=== PATIENT | female | born 1975 | race Caucasian/White ===

== ENCOUNTER 2020-12-19 13:27 | Emergency (ER) | payer MEDICAID, SELFPAY ==
--- NOTE | ~2020-12-19 | CT_ITS ---
EXAMINATION: CT ABDOMEN AND PELVIS WITH CONTRAST CLINICAL INFORMATION: Endometriosis, status post exploratory laparotomy 12/14. Severe left lower quadrant pain. Age 45. COMPARISON: Pelvic ultrasound 10/24/2019, CT abdomen and pelvis with IV contrast 09/11/2017 TECHNIQUE: Multidetector volumetric images were obtained from the superior aspect of the liver through the pubic symphysis following administration 85 mL of Omnipaque 350 intravenous contrast. Sagittal and coronal reformatted images were obtained on the technologist's workstation. Oral contrast: No This CT examination was performed using dose optimization techniques as appropriate, variously including the following: *Automated exposure control *Adjustment of mA and/or kV according to patient size (this includes techniques or standardized protocols for targeted exams where dose is matched to indication/reason for exam; i.e. extremities or head) *Use of iterative reconstruction technique DLP: 492 mGy-cm FINDINGS: LUNG BASES: Probable minor dependent atelectasis posterior bases. No effusion. LIVER, GALLBLADDER, AND BILIARY TREE: Liver is upper limits of normal size and smooth in contour, similar to prior exam 2018. The parenchyma areas homogeneous. There is no focal parenchymal lesion or intrahepatic ductal dilatation. Again, there is a 1.9 cm gallstone. No gallbladder wall thickening or pericholecystic inflammatory changes. Common duct unremarkable. PANCREAS: Unremarkable. SPLEEN: Unremarkable. ADRENAL GLANDS: Unremarkable. KIDNEYS AND URETERS: The kidneys are normal in size, shape, and attenuation. No hydronephrosis, hydroureter, or calculi seen. No perinephric stranding. BLADDER: Unremarkable. GASTROINTESTINAL TRACT: There is no bowel obstruction or focal inflammatory changes in bowel or mesentery. The appendix is normal. There is moderate stool throughout the colon. There is no definite pneumatosis and no free air. No abdominal ascites or abdominal fluid collection. ABDOMINAL WALL: Borderline fat-containing umbilical hernia under 3 cm. LYMPH NODES: No lymphadenopathy. VASCULAR: Unremarkable. PELVIC VISCERA: Mild to moderate pelvic ascites. Prior hysterectomy. Dominant follicle or postovulatory corpus luteum left adnexa measuring under 2 cm. No extraintestinal gas bubbles. No stranding in the adjacent the pelvic mesentery. OSSEOUS STRUCTURES: No acute bony abnormality. Degenerative disc changes L2-L3 and L3-L4 with disc narrowing and vacuum disc and vertebral spurring. CT/CT abdomen pelvis w con IMPRESSION: 1. No bowel obstruction or focal inflammatory changes in bowel or mesentery. Normal appendix. 2. Small to moderate pelvic ascites. Left adnexal dominant follicle/postovulatory corpus luteum under 2 cm. 3. Chronic gallstone. No gallbladder wall thickening or ductal dilatation.
[2020-12-19 13:31] VITALS: BP 110/69; PULSE 86; RESP 24; TEMP 37; O2SAT 100; BMI 23.3
--- NOTE | 2020-12-19 15:03 | ED.GENADULT ---
HPI - General Adult General Chief complaint: Abdominal Pain Stated complaint: LOWER ABD PAIN HAD SURGERY 12 14 20 Time Seen by Provider: 12/19/20 14:17 Source: patient Mode of arrival: ambulatory Limitations: no limitations History of Present Illness HPI narrative: 45 year old female who presents emergency department for evaluation of left lower quadrant abdominal pain. The patient states she has a history of intermittent left lower quadrant abdominal pain times at least 1 year. She states that over the past 7 to 10 days the pain has been severe. She describes the pain as a constant, stabbing, pulsating, aching, throbbing pain. She states that in the past, the pain was caused by ovarian cyst. The patient was seen at [facility] and had a laparoscopic exploratory surgery on 12/14/2020. She states that they found tissue which turned out to be endometriosis. Patient does have a history of hysterectomy but does have both of her ovaries. She states that initially after the surgery she did feel better however she states that last night the pain came back and was severe, greater than 10/10. The patient had associated chills but no fever. She had associated nausea but no vomiting. She has dysuria but no frequency. She states that she has had normal bowel movements since the surgery and is passing flatus. She does feel bloated since the surgery. Related Data Previous Rx's Medication Instructions Recorded hydromorphone 2 mg tablet 2 mg PO Q4-6H PRN #10 tab 12/19/20 (Dilaudid) Allergies Allergy/AdvReac Type Severity Reaction Status Date / Time Penicillins [PENICILLINS] Allergy Intermediate HIVES/VOMIT Verified 12/19/20 13:30 ING sulfamethoxazole Allergy Intermediate BLISTERS Verified 12/19/20 13:30 [From BACTRIM] trimethoprim [From BACTRIM] Allergy Intermediate BLISTERS Verified 12/19/20 13:30 ciprofloxacin [Cipro] Allergy Unknown Hives Verified 12/19/20 13:30 penicillin V Allergy Unknown Hives Verified 12/19/20 13:30 Sulfa (Sulfonamide Allergy Unknown HIVES Verified 12/19/20 13:30 Antibiotics) [SULFA (SULFONAMIDE ANTIBIOTICS)] From CIPRO Allergy Intermediate HIVES Uncoded 12/19/20 13:30 Review of Systems Review of Systems: Yes all other systems are reviewed and are negative PMFSH Past Medical History PMFSH Narrative: Past medical history: Anxiety, insomnia,Jane Habermann Disease(PLEVA) treated with methotrexate. Past surgical history: Hysterectomy. Exploratory laparoscopic surgery done at [facility] on 12/14/2020-patient found to have endometriosis on biopsy. Social history: The patient smokes 5 cigarettes per day. The patient states she rarely drinks alcohol. She denies drug use. Social History Social History Advance Directives: No Advance Directives Information Provided: Yes Patient : No Physical Exam Vital Signs: Vital Signs: Last Vital Signs Temp 97.9 F 12/19/20 16:23 Pulse 62 12/19/20 16:23 Resp 18 12/19/20 16:23 BP 100/50 L 12/19/20 16:23 Pulse Ox 99 12/19/20 16:23 Body Mass Index 23.3 Const: General: cooperative and no acute distress Orientation/consciousness: oriented to person and oriented to place Limitations: no limitations HENMT: Head: Yes normal to inspection, Yes normocephalic and Yes atraumatic Ears: external ears normal General nose exam: Normal external nose present Face and sinus: Yes normal facial exam Mouth: Normal oral and palatal mucosa present Throat: Yes posterior oropharynx normal Eyes: General: appearance normal, both eyes and all related structures Pupils: Equal, round and reactive pupils present Neck: Neck: Yes normal visual inspection, Yes no lymphadenopathy, Yes trachea midline and Yes supple Chest: Chest palpation & inspection: normal inspection of the chest and normal palpation of entire chest wall Resp: Effort & Inspection: normal respiratory effort and able to speak in complete sentences Auscultation: clear to auscultation bilaterally Cardio: Rate: regular rate Rhythm: regular rhythm Heart sounds: S1 normal heart sound present, S2 normal heart sound present and no murmurs GI: Other: Patient's abdomen did reveal 3 laparoscopic puncture sites (umbilical, left lower, right lower) which are healing well with no evidence of cellulitis. The patient had moderate to severe left lower quadrant tenderness mild suprapubic tenderness, no right lower or upper abdominal tenderness. Patient had normoactive bowel sounds. : General: Yes no CVA tenderness Back/Spine/Pelvis: Back: no CVA tenderness Skin: General skin exam: no rashes or lesions noted Neuro: General: oriented to person and oriented to place Cranial nerves: Yes CN's II-XII intact bilaterally and Yes Equal, round and reactive pupils present Cognition (Neuro): normal cognition Motor exam (neuro): 5/5 motor strength present throughout Extrem: General: Yes normal to inspection Psych: Appearance: grossly normal Speech and movement: Normal speech and movement present Affect: normal affect Attitude: cooperative Thought process: Normal thought process present Thought content: Normal thought content present Course Course Course Narrative: 45-year-old female who has intermittent left lower quadrant pain which has been worse over the past 1-2 weeks. Patient was seen at [facility] and had exploratory laparoscopic surgery on 12/14/2020 and was found to have endometriosis. The patient has had severe left lower quadrant pain since last night. She has had associated chills, and nausea, dysuria. She feels bloated but has been moving her bowels and has been passing flatus. The following was ordered on the patient: CBC, CMP, lactate, lipase, urinalysis. CT scan of the abdomen pelvis with IV contrast was also ordered. Patient's pain was treated with Dilaudid 1 mg IV, nausea was treated with Zofran 4 mg IV. She was also ordered to get normal saline IV x1 L. 1703: The patient's laboratory evaluation was unremarkable. CT scan of the abdomen pelvis did not reveal a clear cause for the patient's left lower quadrant pain. Patient does have bowel left follicular cyst but I do not think this is the cause of her pain. She also has free fluid in the pelvis but this is probably related to her recent laparoscopic surgery. , there was no evidence for bowel obstruction or inflammatory changes in the bowel or mesentery. There is no free air seen. The patient incidentally has gallstones with no cholecystitis. The patient required a 2nd dose of Dilaudid 1 mg IV for pain. I did discuss the negative workup with the patient. This time I do not have a clear etiology for pain. I did review the patient's Mass PAT history. The patient gets Ambien and Soma on a regular basis. She had Dilaudid 12 tabs given on 12/14/2020. She had multiple prescriptions for oxycodone in September of 2020. Given her recent post surgical procedure, I do think it is appropriate to give her another limited prescription for Dilaudid and I did discuss this with the patient. The patient was discharged home with printed and verbal instructions. Medical Decision Making Lab Data Result diagrams: 12/19/20 15:09 12/19/20 15:09 Labs: Lab Results 12/19/20 12/19/20 12/19/20 Range/Units 15:09 15:09 15:09 WBC 11.4 H (4.8-10.8) X10*3/uL RBC 3.58 L (4.20-5.50) X10*6/uL Hgb 12.2 (12.0-16.0) g/dl Hct 36.2 L (37-47) % MCV 101.1 H (80-98) fL MCH 34.1 H (27.0-33.0) pg MCHC 33.7 (31.0-35.0) g/dl RDW 14.0 (11.0-16.0) % Plt Count 194 (160-400) X10*3/uL MPV 9.2 L (9.4-12.3) fL Immature Gran % (Auto) 0.3 (0.0-0.4) % Neut % (Auto) 59.4 (45-73) % Lymph % (Auto) 32.8 (20-40) % [place] % (Auto) 5.4 (2-11) % Eos % (Auto) 1.8 (0-4) % Baso % (Auto) 0.3 (0-2) % Lymph # (Auto) 3.7 (1.2-4.9) X10*3/uL [place] # (Auto) 0.6 (0.1-1.2) X10*3/uL Eos # (Auto) 0.2 (0.0-0.4) X10*3/uL Baso # (Auto) 0.0 (0.0-0.2) X10*3/uL Abs Immat Gran (auto) 0.03 (0.00-0.03) X10*3/uL Absolute Neuts (auto) 6.8 (2.0-8.3) X10*3/uL Absolute Nucleated RBC 0.000 (0.0-0.012) X10*3/uL Nucleated RBC % (auto) 0.0 (0.0-0.2) /100WBC Sodium 139 (135-145) mmol/L Potassium 4.7 (3.3-5.1) mmol/L Chloride 110 H (96-108) mmol/L Carbon Dioxide 21 L (22-29) mmol/L Anion Gap 13 (12-20) BUN 9 (9-16) mg/dL Creatinine 0.69 (0.5-1.4) mg/dL Estim Creat Clear Calc 98.3 Estimated GFR > 60 Random Glucose 89 (60-115) mg/dL Lactic Acid 0.7 (0.5-2.0) mmol/L Calcium 8.0 L (8.4-10.2) mg/dL Total Bilirubin 0.3 (0.0-1.0) mg/dL AST 17 (5-31) U/L ALT 16 (0-31) U/L Alkaline Phosphatase 44 (39-117) U/L Total Protein 6.0 L (6.5-8.0) g/dL Albumin 3.7 (3.5-5.0) g/dL Lipase 9 (8-78) U/L Discharge Plan Discharge Clinical Impression: Abdominal pain Qualifiers: Abdominal location: left lower quadrant Qualified Code(s): R10.32 - Left lower quadrant pain Patient Disposition: Home, Self-Care Instructions: Abdominal Pain (ED) Additional Instructions: Your laboratory evaluation was unremarkable. The CT scan of your abdomen pelvis with IV contrast did not reveal a clear cause for your left lower abdominal pain. You do have a normal appearing cyst on your left ovary. You have some free fluid in your pelvis but this is probably secondary to the recent laparoscopic surgery. There is no evidence for perforation of your intestines or other organs from the surgery. There is no evidence for bowel obstruction or inflammation of your bowel such as diverticulitis that is causing your pain. You do have gallstones but this is not the cause of your pain. Take ibuprofen 200 mg pills, 3 pills every 6 hours as needed for pain. Take Tylenol (acetaminophen) 500 mg pills, 2 pills every 4-6 hours as needed for pain. For pain not relieved by ibuprofen or Tylenol take Dilaudid (hydromorphone) 1 mg pills, 1 pill every 4 to 6 hours as needed for pain. Do not drive or work while taking this medication since they can cause sleepiness. Dilaudid (hydromorphone) is a narcotic medication that can be addicting. If you are concerned about addiction you can ask the pharmacist for less pills or do not get this prescription filled. Follow-up with your doctor in 2 days. Please return to the emergency department if your symptoms get worse or if you develop any symptoms that are concerning to you. Prescriptions: New hydromorphone [Dilaudid] 2 mg tablet 2 mg PO Q4-6H PRN (Reason: pain) Qty: 10 RF: 0
[2020-12-19] MEDS: HYDROmorphone HCl 1 MG/ML SYRINGE IVPUSH ×2 (15:14→16:33)
[2020-12-19] MEDS: ondansetron HCL 4 MG/2 ML VIAL IVPUSH (15:14)
[2020-12-19 15:15] LABS: Basophils Percent Auto 0.3 % (0-2); Eosinophils Absolute Auto 0.2 X10*3/uL (0.0-0.4); Eosinophils Percent Auto 1.8 % (0-4); Hematocrit 36.2 % (37-47); Hemoglobin 12.2 g/dl (12.0-16.0); Imm Gran Abs Auto 0.03 X10*3/uL (0.00-0.03); Imm Gran Pct Auto 0.3 % (0.0-0.4); Lymphocytes Absolute Auto 3.7 X10*3/uL (1.2-4.9); Lymphocytes Percent Auto 32.8 % (20-40); MANUAL DIFF FLAG NO; Mean Corpuscular HGB Conc 33.7 g/dl (31.0-35.0); Mean Corpuscular Hemoglobin 34.1 pg (27.0-33.0); Mean Corpuscular Volume 101.1 fL (80-98); Mean Platelet Volume 9.2 fL (9.4-12.3); Monocytes Absolute Auto 0.6 X10*3/uL (0.1-1.2); Monocytes Percent Auto 5.4 % (2-11); Neutrophils Absolute Auto 6.8 X10*3/uL (2.0-8.3); Neutrophils Percent Auto 59.4 % (45-73); Platelet Count 194 X10*3/uL (160-400); Red Blood Count 3.58 X10*6/uL (4.20-5.50); White Blood Count 11.4 X10*3/uL (4.8-10.8)
[2020-12-19] MEDS: 0.9 % Sodium Chloride 1,000 ML 999 ML IV (15:18)
[2020-12-19 15:28] LABS: Lactic Acid 0.7 mmol/L (0.5-2.0)
[2020-12-19 15:37] LABS: Alanine Aminotransferase 16 U/L (0-31); Albumin Level 3.7 g/dL (3.5-5.0); Alkaline Phosphatase 44 U/L (39-117); Anion Gap 13 (12-20); Aspartate Amino Transferase 17 U/L (5-31); Bilirubin Total 0.3 mg/dL (0.0-1.0); Blood Urea Nitrogen 9 mg/dL (9-16); Carbon Dioxide 21 mmol/L (22-29); Chloride 110 mmol/L (96-108); Creatinine Clr Calc Pharmacy 98.3; Estimated Glomerular Filt Rate > 60; Glucose Random 89 mg/dL (60-115); Lipase 9 U/L (8-78); Potassium 4.7 mmol/L (3.3-5.1); Sodium 139 mmol/L (135-145)
[2020-12-19] MEDS: iohexoL 350 MG/ML 100 ML INFUS..BTL IV (16:02)
[2020-12-19 16:23] VITALS: BP 100/50; PULSE 62; RESP 18; TEMP 36.6; O2SAT 99
== END 2020-12-19 17:38 | disposition home or self-care (01) ==
PROVIDERS: Emergency Provider Emergency Medicine Emergency Medical Services; PCP Hospitalist
DX: R10.32 Left lower quadrant pain (principal)
CPT/HCPCS: 36415; 74177; 80053; 83605; 83690; 85025; 96361; 96374; 96375; 96376; 99283; 99284; J1170; J2405; Q9967

== ENCOUNTER 2021-04-24 11:11 | Emergency (ER) | payer MEDICAID, SELFPAY ==
--- NOTE | ~2021-04-24 | US_ITS ---
EXAMINATION: US ABDOMEN LIMITED CLINICAL INFORMATION: Abdominal pain. COMPARISON: None TECHNIQUE: Real-time imaging of the right upper quadrant abdominal viscera. FINDINGS: PANCREAS: Visualized portions of the pancreas are unremarkable. The pancreatic tail is obscured by bowel gas. LIVER: Normal. The liver is normal in size. The liver contour is normal. Parenchymal echogenicity is normal. No focal hepatic lesion. There is no intrahepatic biliary duct dilatation seen. GALLBLADDER: Cholelithiasis without findings to suggest acute cholecystitis. COMMON BILE DUCT: Normal in caliber measuring 0.5 cm in diameter. RIGHT KIDNEY: Normal. No hydronephrosis. No renal calculi or focal parenchymal lesions. The kidney measures 10.1 cm in maximum dimension. FREE FLUID: None. US/US abdomen limited IMPRESSION: Cholelithiasis without findings to suggest acute cholecystitis.
--- NOTE | ~2021-04-24 | CT_ITS ---
EXAMINATION: CT HEAD WITHOUT CONTRAST CLINICAL INFORMATION: Dizziness. Loss of consciousness. COMPARISON: None. TECHNIQUE: Contiguous axial imaging was performed from the skull base to vertex without intravenous administration of contrast. Coronal and sagittal reformatted images are performed at the CT scanner. [This CT examination was performed using dose optimization techniques as appropriate, variously including the following: *Automated exposure control *Adjustment of mA and/or kV according to patient size (this includes techniques or standardized protocols for targeted exams where dose is matched to indication/reason for exam; i.e. extremities or head) *Use of iterative reconstruction technique] DLP: 535 mGy-cm. FINDINGS: There is no evidence of acute intracranial hemorrhage or territorial infarction. No abnormal mass-effect or midline shift is seen. [place] to white matter differentiation is well preserved. No extra-axial fluid collections are identified. The ventricles are normal in size. There is no abnormal attenuation within the brain parenchyma. There is no osseous abnormality. The mastoid air cells and visualized portions of the paranasal sinuses are well-aerated. CT/CT head/brain wo con IMPRESSION: No acute intracranial pathology.
[2021-04-24 11:36] VITALS: BP 112/91; PULSE 81; RESP 18; TEMP 36.8; O2SAT 99; BMI 22.8
[2021-04-24 12:31] LABS: MANUAL DIFF FLAG NO
[2021-04-24 12:32] LABS: Appearance Urine CLEAR; Color Urine STRAW; Glucose Urine UA NEG (NEG); Leukocyte Esterase Urine NEG (NEG); Nitrite Urine NEG (NEG); PH 5.5 (5.0-8.0); Specific Gravity - Urine <= 1.005 (1.005-1.025); Urine Blood NEG (NEG); Urine Ketones NEG (NEG); Urine Protein NEG (NEG-TRACE)
[2021-04-24 12:32] LABS: Basophils Percent Auto 0.5 % (0-2); Eosinophils Absolute Auto 0.2 X10*3/uL (0.0-0.4); Eosinophils Percent Auto 3.2 % (0-4); Hematocrit 41.9 % (37.0-47.0); Hemoglobin 13.8 g/dl (12.0-16.0); Imm Gran Abs Auto 0.03 X10*3/uL (0.00-0.03); Imm Gran Pct Auto 0.4 % (0.0-0.4); Lymphocytes Absolute Auto 2.6 X10*3/uL (1.2-4.9); Lymphocytes Percent Auto 33.9 % (20-40); Mean Corpuscular HGB Conc 32.9 g/dl (31.0-35.0); Mean Corpuscular Hemoglobin 33.7 pg (27.0-33.0); Mean Corpuscular Volume 102.2 fL (80.0-98.0); Mean Platelet Volume 8.9 fL (9.4-12.3); Monocytes Absolute Auto 0.4 X10*3/uL (0.1-1.2); Monocytes Percent Auto 5.1 % (2-11); Neutrophils Absolute Auto 4.3 x10*3/uL (2.0-8.3); Neutrophils Percent Auto 56.9 % (45-73); Platelet Count 220 X10*3/uL (160-400); Red Cell Distribution Width 13.5 % (11.0-16.0); White Blood Count 7.6 X10*3/uL (4.8-10.8)
[2021-04-24 12:56] LABS: Alanine Aminotransferase 15 U/L (0-31); Albumin Level 4.1 g/dL (3.5-5.0); Alkaline Phosphatase 51 U/L (39-117); Anion Gap 11 (12-20); Aspartate Amino Transferase 13 U/L (5-31); Bilirubin Total 0.2 mg/dL (0.0-1.0); Blood Urea Nitrogen 7 mg/dL (9-16); Calcium 9.1 mg/dL (8.4-10.2); Carbon Dioxide 26 mmol/L (22-29); Chloride 106 mmol/L (96-108); Creatinine Clr Calc Pharmacy 93.2; Estimated Glomerular Filt Rate > 60; Glucose Random 89 mg/dL (60-115); Lipase 11 U/L (8-78); Potassium 4.4 mmol/L (3.3-5.1); Sodium 139 mmol/L (135-145); Total Protein 6.6 g/dL (6.5-8.0)
--- NOTE | 2021-04-24 16:14 | ED.ABDPAIN ---
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 Patient tells me that the right upper quadrant pain is severe in nature, constant, described as a burning sensation, she tells me it feels like the time she had gallstones. She tells me drinking soda makes it worse. However she cannot pinpoint anything that makes it better. She is also coming in with complaints of intermittent dizziness described as the room spinning that is been going on for about 2 weeks she tells me that from time to time it is so bad that she falls and loses consciousness. Last episode a few days ago and last LOC a week and a half ago. She has not been evaluated for this in the past. She tells me that at times a headache accompanies the dizziness however it is usually just dizziness. She denies any recent head trauma. She denies chest pain, shortness of breath, nausea, vomiting, fevers, chills, flank pain, urinary frequency, urgency, dysuria, constipation, diarrhea. MD elicited complaint: abdominal pain Pertinent past history: none Onset (ago): week(s) (1) Pain Consistency: constant Location: RUQ Severity: severe Quality: burning Radiation: RUQ Migration to: no migration Exacerbating factors: other (soda) Relieving factors: nothing Associated symptoms: other (dizzineess) Related Data Previous Rx's Medication Instructions Recorded hydromorphone 2 mg tablet 2 mg PO Q4-6H PRN #10 tab 12/19/20 (Dilaudid) Allergies Allergy/AdvReac Type Severity Reaction Status Date / Time Penicillins [PENICILLINS] Allergy Intermediate HIVES/VOMIT Verified 04/24/21 11:35 ING sulfamethoxazole Allergy Intermediate BLISTERS Verified 04/24/21 11:35 [From BACTRIM] trimethoprim [From BACTRIM] Allergy Intermediate BLISTERS Verified 04/24/21 11:35 ciprofloxacin [Cipro] Allergy Unknown Hives Verified 04/24/21 11:35 penicillin V Allergy Unknown Hives Verified 04/24/21 11:35 Sulfa (Sulfonamide Allergy Unknown HIVES Verified 04/24/21 11:35 Antibiotics) [SULFA (SULFONAMIDE ANTIBIOTICS)] From [facility] Allergy Intermediate HIVES Uncoded 12/19/20 13:30 Review of Systems Review of Systems Constitutional : No Weight loss, No Fever, No Chills, No Fatigue, No Malaise ENT/Mouth : No sore throat, No Rhinorrhea Eyes: No Eye Pain, No Swelling, No Redness Cardiovascular : No Chest Pain, No SOB, No Dyspnea on Exertion, No Orthopnea, No Edema, No Palpitations Respiratory : No Cough, No Sputum, No Wheezing Gastrointestinal : No Nausea, No Vomiting, No Diarrhea, No Constipation, No abdominal Pain, No Hematochezia, No Melena Genitourinary : No Dysuria, No Urinary Frequency, No Hematuria, Musculoskeletal : No joint pain, No Myalgias, No Joint Swelling Skin : No Skin Lesions, No rash Neuro : No Weakness, No Numbness, No Dizziness, No Headache Psych : No Anxiety/Panic, No Depression All other systems reviewed and are negative Yes all other systems are reviewed and are negative [facility] Past Medical History Attestation statement: The following information was validated with the patient. Source: old records reviewed and nursing notes reviewed Medical History Gallstone PLEVA (pityriasis lichenoides et varioliformis acuta) Social History Social History Advance Directives: No Advance Directives Information Provided: No Physical Exam ED Vital Signs: Vital Signs - 24 hr 04/24/21 11:36 04/24/21 16:19 04/24/21 16:46 Temperature 98.3 F Pulse Rate 81 80 Respiratory Rate 18 18 Blood Pressure 112/91 H 118/70 118/70 Pulse Oximetry 99 100 04/24/21 16:47 Temperature Pulse Rate Respiratory Rate Blood Pressure 105/65 Pulse Oximetry BMI result Body Mass Index 22.8 VSS Appearance: Alert.? Oriented X3.? No acute distress.? Head: Normocephalic, atraumatic, no step-offs or deformities Eyes: Pupils equal, round and reactive to light.?EOMI. No nystagmus. ENT: Pharynx normal.? Neck: Normal inspection.? Neck supple.? CVS: Normal heart rate and rhythm.? Pulses normal.? Respiratory: No respiratory distress.? Breath sounds normal.? Abdomen: Soft and + Tenderness to right upper quadrant, positive Bhat sign. Negative Rovsing, McBurney's point, obturator and psoas..? Skin: Skin warm and dry.? Normal skin color.? Normal skin turgor.? Extremities: No lower extremity edema.? No calf ttp. 5/5 strength to bilateral upper and lower extremities Back: No midline tenderness, no C-spine tenderness, full range of motion, no CVA tenderness bilaterally Neuro: Oriented X 3.? No motor deficit.? No sensory deficit. CN 2-12 intact. Normal [id number], [id number], normal tandem gait. Course Reevaluation(s) Reevaluation #1: Orthostatic vital signs positive. Patient will be hydrated with fluids. CBC appears to be at patient's baseline. No leukocytosis or anemia. Chemistry with no acute electrolyte abnormalities. Total bilirubin, and transaminases within normal limits unlikely that this is choledocholithiasis. Lipase within normal limits. Urine negative. Beta hCG pending. CT of the head pending. Ultrasound of right upper quadrant pending. Time: 16:37 Reevaluation #2: Head CT w/ no acute findings. CT of the abdomen with cholelithiasis without acute cholecystitis. I will have patient follow-up with General surgery outpatient as I can discuss an elective cholecystectomy. Beta hCG negative. Patient does have orthostatic hypotension. Is being hydrated. Orthostatics will be repeated. Time: 17:55 Reevaluation #3: Patient is very upset when I discussed normal findings with her she does not understand how I can discharge her home when she is still having right upper quadrant pain. I offered her a GI cocktail as she is describing mood pain as a burning, ascitic sensation. She also tells me that she has had an endoscopy which shows that she has a lot of acid in her stomach and she suffers from this issue chronically. At this time nurse in that section is very backed up with a critical patient and patient has not received this medication she is very upset and wants to leave. I told patient that I would really like it if she stayed tried a GI cocktail and of this does not work we could try something else. Patient very aggressively tells me she does not want to leave she does not understand why she cannot get her gallbladder issue resolved, I tried to explain to her that is not obstructed, or infected and this does not require emergent surgery. I told her I could for store and offer her neurology follow-up, follow-up with GI, follow-up with general surgery and PCP follow-up. Based off her labs and imaging there is no reason for acute emergent surgical intervention. Patient is experiencing pain it initially improved with Toradol however pain came back. She describes the pain as a burning/ascitic pain therefore I offered her a GI cocktail. Because I feel as though this is appropriate to rule out gastritis. At this time patient is telling me she wants to leave. I explained to her and that this is not a good idea because we have still not treated her pain to a level that is appropriate. She tells me she does not care ?you know nothing about my medical history ?.... You guys all have done nothing here ?. She becomes very rude to me and marshall tovar who is at the bedside. Unable to complete 2nd set of orthostatic vital signs as patient is refusing she did receive 1 L of fluids however I am not sure that patient's vital signs have improved. I was going to send patient home on meclizine however she tells me she has an allergy to Benadryl for this reason I will not send her home on meclizine as I am unable to ensure that patient will be safe taking this medication for the 1st time alone. At thyis time she is leaving against medical advice. 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 Upone exam there is tenderness to right upper quadrant, positive Bhat sign. Negative Rovsing, McBurney's point, obturator and psoas..?RRR. Lungs Clear. Neuro nonfocal. Pupils equal round and reactive to light. Extraocular movements intact. No nystagmus. Based off patient history and physical examination unlikely that this is a posterior stroke, likely that this is BPPV, orthostatic hypotension, gallstones. Plan is EKG, cardiac monitoring, basic labs, hCG, ultrasound of right upper quadrant, CT of the head. Medical Records Attestation: I reviewed the patient's medical records. Lab Data Attestation: I reviewed the patient's lab results. Result diagrams: 04/24/21 12:28 04/24/21 12:24 Labs: Lab Results 04/24/21 04/24/21 04/24/21 Range/Units 12:24 12:24 12:28 WBC 7.6 (4.8-10.8) X10*3/uL RBC 4.10 L (4.20-5.50) X10*6/uL Hgb 13.8 (12.0-16.0) g/dl Hct 41.9 (37.0-47.0) % MCV 102.2 H (80.0-98.0) fL MCH 33.7 H (27.0-33.0) pg MCHC 32.9 (31.0-35.0) g/dl RDW 13.5 (11.0-16.0) % Plt Count 220 (160-400) X10*3/uL MPV 8.9 L (9.4-12.3) fL Immature Gran % (Auto) 0.4 (0.0-0.4) % Neut % (Auto) 56.9 (45-73) % Lymph % (Auto) 33.9 (20-40) % [place] % (Auto) 5.1 (2-11) % Eos % (Auto) 3.2 (0-4) % Baso % (Auto) 0.5 (0-2) % Lymph # (Auto) 2.6 (1.2-4.9) X10*3/uL [place] # (Auto) 0.4 (0.1-1.2) X10*3/uL Eos # (Auto) 0.2 (0.0-0.4) X10*3/uL Baso # (Auto) 0.0 (0.0-0.2) X10*3/uL Abs Immat Gran (auto) 0.03 (0.00-0.03) X10*3/uL Absolute Neuts (auto) 4.3 (2.0-8.3) x10*3/uL Absolute Nucleated RBC 0.000 (0.0-0.012) X10*3/uL Nucleated RBC % (auto) 0.0 (0.0-0.2) /100WBC Sodium 139 (135-145) mmol/L Potassium 4.4 (3.3-5.1) mmol/L Chloride 106 (96-108) mmol/L Carbon Dioxide 26 (22-29) mmol/L Anion Gap 11 L (12-20) BUN 7 L (9-16) mg/dL Creatinine 0.70 (0.5-1.4) mg/dL Estim Creat Clear Calc 93.2 Estimated GFR > 60 Random Glucose 89 (60-115) mg/dL Calcium 9.1 D (8.4-10.2) mg/dL Total Bilirubin 0.2 (0.0-1.0) mg/dL AST 13 (5-31) U/L ALT 15 (0-31) U/L Alkaline Phosphatase 51 (39-117) U/L Total Protein 6.6 (6.5-8.0) g/dL Albumin 4.1 (3.5-5.0) g/dL Lipase 11 (8-78) U/L Beta HCG, Quant < 2 mIU/mL Urine Color STRAW Urine Appearance CLEAR Urine pH 5.5 (5.0-8.0) Ur Specific [place] <= 1.005 (1.005-1.025) Urine Protein NEG (NEG-TRACE) MG/DL Urine Glucose (UA) NEG (NEG) MG/DL Urine Ketones NEG (NEG) MG/DL Urine Blood NEG (NEG) Urine Nitrite NEG (NEG) Ur Leukocyte Esterase NEG (NEG) ECG Data Attestation: I personally reviewed and interpreted this ECG as follows: ECG interpretation date: 04/24/21 ECG interpretation time: 17:07 Prior ECG tracings: available for review Interpretation: Ventricular rate 69 MI normal QRS normal. QT/QTC normal. No ST elevations or Inversions. No acute ischemia no previous to compare with . Critical Care Time Critical Care Time Critical Care Time: No Discharge Plan Discharge Clinical Impression: Dizziness, Cholelithiasis, Left against medical advice Patient Disposition: Elopement Instructions: Gallstones (ED) Additional Instructions: Take your medications as prescribed. If you were prescribed antibiotics today, it is important that you take your medication to their entirety, do not skip any doses, do not finish them early. Follow-up with your primary care provider this week. Return to the emergency department with new or worsening symptoms. Such as severe chest pain, shortness of breath, nausea, vomiting, abdominal pain, fevers, chills, changes in bowel habits, changes in urination, back pain. In case of emergency call 911 Prescriptions: No Action hydromorphone [Dilaudid] 2 mg tablet 2 mg PO Q4-6H PRN (Reason: pain) Qty: 10 0RF Rx Instructions: Patient may request partial fill Referrals: Physician,Unknown J [Primary Care Provider] - 2 days Stand Alone Forms: Work/School Release, Against Medical Advice
[2021-04-24 16:19] VITALS: BP 118/70; PULSE 80; RESP 18; O2SAT 100
--- NOTE | 2021-04-24 16:30 | ECG_ITS ---
Test Reason : ABDOMINAL PAIN Blood Pressure : / mmHG Vent. Rate : 069 BPM Atrial Rate : 069 BPM P-R Int : 138 ms QRS Dur : 088 ms QT Int : 426 ms P-R-T Axes : 010 025 028 degrees QTc Int : 456 ms Normal sinus rhythm Normal ECG No previous ECGs available Referred By: Luciano Lopez Electronically Signed By:Karan Youngblood
[2021-04-24 16:39] LABS: HCG Quantitative < 2 mIU/mL
[2021-04-24 16:46] VITALS: BP 118/70
[2021-04-24 16:47] VITALS: BP 105/65
[2021-04-24] MEDS: Ketorolac Tromethamine 15 MG/ML VIAL 30 MG IVPUSH (17:27)
[2021-04-24] MEDS: 0.9 % Sodium Chloride 1,000 ML 999 ML IV (17:27)
== END 2021-04-24 18:45 | disposition left against medical advice (07) ==
PROVIDERS: Physician Assistant; Emergency Provider Emergency Medicine Emergency Medical Services
DX: K80.20 Calculus of gallbladder without cholecystitis without obstruction (principal); R10.11 Right upper quadrant pain; R50.9 Fever, unspecified; R42 Dizziness and giddiness; Z79.899 Other long term (current) drug therapy
CPT/HCPCS: 36415; 70450; 76705; 80053; 81003; 83690; 84702; 85025; 93005; 96361; 96374; 99284; J1885

== ENCOUNTER 2021-11-27 16:17 | Emergency (ER) | payer MEDICAID, SELFPAY ==
--- OUTSIDE RECORDS SUMMARY | 2021-11-27 20:18 | XMS_ITS | Continuity of Care Document ---
:1975 Author Organization [facility] Address [address] [place] [address]- Care Team Providers Name Role Phone Mecca LEONARD, Pop Reveles Primary Care Physician Encounter [facility] Date(s): 01/12/21 - 01/19/21 [facility] [address] [place] [address]- Encounter Diagnosis COVID-19 (Discharge Diagnosis) - 01/12/21 Attending Physician: Noé FINANCIAL REPORTING SPECIALIST, Jo Ann Tate Allergies, Adverse Reactions, Alerts Substance Reaction Severity Status morphine nausea Active Coconut burning in throat blisters in mouth Active penicillins hives high fever vomiting Active sulfa drugs hives Active Ciprofloxacin allergy blisters Cipro hives Active Bactrim hives Active Benadryl restless leg syndrone makes me wired Active Duloxetine fatigue, word slurring, confusion Active Immunizations Given and Recorded Vaccine Date Status Refusal Reason pneumococcal 23-valent vaccine1 07/02/17 Given tetanus/diphtheria/pertussis, acel(Tdap)2 07/02/17 Given Not Given Vaccine Date Status Refusal Reason Influenza Virus Vaccine (oldterm) 04/29/19 Not Given Parent Or Guardian Refuses Influenza Virus Vaccine (oldterm) 04/12/19 Not Given Patient Refuses 1Result Comment: [07/02/2017] [id number] Comment: [07/02/2017] [id number] Medications Ambien 10 mg oral tablet 1 tablet = 10 mg, By Mouth, Daily at bedtime, PRN for sleep, # 90 tablet, 0 Refills, Maintenance, 11/23/20 17:09:00 EDT, Tablet, [facility], [place] TO F[place] EARLY PATIENT LOST PREVIOUS SCRIPT, 165,cm, 07/27/21 14:43:00 EDT, Height, 73, kg, ... Start Date: 11/23/20 Status: Orderedescitalopram 20 mg oral tablet 1 tablet = 20 mg, By Mouth, Daily, # 90 tablet, 3 Refills, Maintenance, 09/19/20 15:24:00 EDT, Tablet, [facility], 165, cm, 09/19/20 14:43:00 EDT, Height, 73, kg, 02/08/20 8:38:00 EST, Dry Weight Start Date: 09/19/20 Status: Orderedfolic acid 1 mg oral tablet 1 tablet = 1 mg, By Mouth, Daily, # 30 tablet, 0 Refills, Maintenance, 02/15/14 17:52:02, Tablet Start Date: 02/15/14 Status: Orderedlidocaine 5% topical ointment 1 application, Topically, 3 times a day, # 50 Gm, 1 Refills, Maintenance, 03/10/19 13:16:00 EST, Ointment, [facility], 1 application Topically 3 times a day, 165.1, cm, 03/10/19 12:52:00 EST, Height Start Date: 03/10/19 Status: Orderedmethotrexate 2.5 mg oral tablet 6 tablet = 15 mg, By Mouth, Every week, # 30 tablet, 5 Refills, Maintenance, 08/09/20 15:25:00 EDT, Tablet, [facility] # [facility], 165, cm, 03/27/20 12:01:00 EST, Height, 73, kg, 02/08/20 8:38:00 EST, Dry Weight Start Date: 08/09/20 Status: Orderedomeprazole 40 mg oral enteric coated capsule 1 capsule = 40 mg, By Mouth, 2 times a day, before a meal, # 60 capsule, 1 Refills, Maintenance, 02/01/20 15:13:00 EST, EC Capsule, [facility] # [facility], Partial fill upon patient request if the prescription is for a schedule II opioid drug., 165.1, cm... Start Date: 02/01/20 Status: OrderedSoma 350 mg oral tablet 350 mg, 1, tablet, By Mouth, 3 times a day, PRN, # 270 tablet, Refills 0, Tot. Refills 0, Maintenance, as needed for pain, 11/23/20 17:09:00 EDT, Route to Pharmacy Electronically, [facility], [place] F[place] EARLY PATIENT LOST PREVIOUS SCRIPT, 165... Start Date: 11/23/20 Status: Orderedsucralfate 1 gm oral tablet 1 Gm, 1, tablet, By Mouth, 4 times a day, # 40 tablet, Refills 0, Tot. Refills 0, Maintenance, 02/01/20 15:13:00 EST, Route to Pharmacy Electronically, [facility] # [facility], Partial fill upon patient request if the prescription is for a schedule II opi... Start Date: 02/01/20 Status: Ordered Problem List Condition Effective Dates Status Health Status Informant PLEVA (pityriasis lichenoides et Active varioliformis acuta) - on MTX(Confirmed) Bacterial vaginosis - Active recurrent(Confirmed) Right carotid bruit(Confirmed) Active Chronic abdominal pain(Confirmed) Active Chronic pain syndrome(Confirmed) Active Adenomyosis(Confirmed) Active Fibromyalgia(Confirmed) Active Generalized pain(Confirmed) Active Insomnia(Confirmed) Active 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) Active intermediate designer methotrexate user(Confirmed) 11/24/09 Active Moderate major depression(Confirmed) Active Neuropathic pain(Confirmed) Active Right shoulder pain(Confirmed) Active Diagnosis Diagnosis Type Effective Dates Health Status Clinical Serv ice Informant COVID-19 Discharge 01/12/21 Diagnosis Vital Signs Most recent to oldest [Reference Range]: 1 Height 165 cm (01/12/21 8:46 AM) Social History Social History Type Response Smoking Status Current some day smoker entered on: 07/02/17 Sex Female
--- OUTSIDE RECORDS SUMMARY | 2021-11-27 20:18 | XMS_ITS | Continuity of Care Document ---
:1975 Author Organization [facility] Address [address] [place] [address]- Care Team Providers Name Role Phone Mecca LEONARD, Pop Reveles Primary Care Physician Encounter [facility] Date(s): 01/11/21 - 02/10/21 [facility] [address] [place] [address]- Allergies, Adverse Reactions, Alerts Substance Reaction Severity Status morphine nausea Active penicillins hives high fever vomiting Active sulfa drugs hives Active Ciprofloxacin allergy blisters Cipro hives Active Bactrim hives Active Benadryl restless leg syndrone makes me wired Active Duloxetine fatigue, word slurring, confusion Active Coconut burning in throat blisters in mouth Active Immunizations Given and Recorded Vaccine Date Status Refusal Reason pneumococcal 23-valent vaccine1 07/02/17 Given tetanus/diphtheria/pertussis, acel(Tdap)2 07/02/17 Given Not Given Vaccine Date Status Refusal Reason Influenza Virus Vaccine (oldterm) 04/29/19 Not Given Parent Or Guardian Refuses Influenza Virus Vaccine (oldterm) 04/12/19 Not Given Patient Refuses 1Result Comment: [07/02/2017] [id number] Comment: [07/02/2017] [id number] Medications Ambien 10 mg oral tablet 1 tablet = 10 mg, By Mouth, Daily at bedtime, PRN for sleep, # 90 tablet, 0 Refills, Maintenance, 11/23/20 17:09:00 EDT, Tablet, [facility], [place] TO F[place] EARLY PATIENT LOST PREVIOUS SCRIPT, 165,cm, 09/19/20 14:43:00 EDT, Height, 73, kg, 02/07/... Start Date: 11/23/20 Status: Orderedescitalopram 20 mg oral tablet 1 tablet = 20 mg, By Mouth, Daily, # 90 tablet, 3 Refills, Maintenance, 09/19/20 15:24:00 EDT, Tablet, [facility] # [facility], 165, cm, [...] 1 Refills, Maintenance, 03/10/19 13:16:00 EST, Ointment, [facility] # [facility], 1 application Topically 3 times a day, 165.1, cm, 03/10/19 12:52:00 EST, Height Start Date: 03/10/19 Status: Orderedmethotrexate 2.5 mg oral tablet 6 tablet = 15 mg, By Mouth, Every week, # 30 tablet, 5 Refills, Maintenance, 08/09/20 15:25:00 EDT, Tablet, [facility] # [facility], 165, cm, 03/27/20 12:01:00 EST, Height, 73, kg, 02/08/20 8:38:00 EST, Dry Weight Start Date: 08/09/20 Status: Orderedomeprazole 40 mg oral enteric coated capsule 1 capsule = 40 mg, By Mouth, 2 times a day, before a meal, # 60 capsule, 1 Refills, Maintenance, 02/01/20 15:13:00 EST, EC Capsule, [facility] # [facility], Partial fill upon patient request if the prescription is for a schedule II opioid drug., 165.1, cm... Start Date: 02/01/20 Status: OrderedSoma 350 mg oral tablet 350 mg, 1, tablet, By Mouth, 3 times a day, PRN, # 270 tablet, Refills 0, Tot. Refills 0, Maintenance, as needed for pain, 02/08/21 16:31:00 EST, Route to Pharmacy Electronically, [facility] # [facility], 165, cm, 01/12/21 8:46:00 EST, Height, 73, kg, ... Start Date: 02/08/21 Status: Orderedsucralfate 1 gm oral tablet 1 Gm, 1, tablet, By Mouth, 4 times a day, # 40 tablet, Refills 0, Tot. Refills 0, Maintenance, 02/01/20 15:13:00 EST, Route to Pharmacy Electronically, [facility] # [facility], Partial fill upon patient [...] Active Insomnia(Confirmed) Active 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) Active [facility] methotrexate user(Confirmed) 11/24/09 Active Moderate major depression(Confirmed) Active Neuropathic pain(Confirmed) Active Right shoulder pain(Confirmed) Active Social History Social History Type Response Smoking Status Current some day smoker entered on: 07/02/17 Sex Female
--- OUTSIDE RECORDS SUMMARY | 2021-11-27 20:18 | XMS_ITS | Continuity of Care Document ---
:1975 Author Organization [facility] Address Unavailable , Care Team Providers Name Role Phone Howard GIVENS, Deanne Pandya Primary Care Physician Encounter [facility] [place] Date(s): 07/10/21 - 08/09/21 [facility] Attending Physician: Admtr, Ke Admitting Physician: Admtr, Ar8 Referring Physician: Admtr, Ar8 Allergies, Adverse Reactions, Alerts Substance Reaction Severity Status doxycycline hives flush Active morphine nausea Active penicillins hives high fever vomiting Active sulfa drugs hives Active Ciprofloxacin allergy blisters Cipro hives Active Bactrim hives Active Benadryl restless leg syndrone makes me wired Active Duloxetine fatigue, word slurring, confusion Active Coconut burning in throat blisters in mouth Active Immunizations Given and Recorded Vaccine Date Status Refusal Reason influenza virus vaccine, inactivated 12/14/20 Recorded pneumococcal 23-valent vaccine1 07/02/17 Given tetanus/diphtheria/pertussis, acel(Tdap)2 07/02/17 Given Not Given Vaccine Date Status Refusal Reason Influenza Virus Vaccine (oldterm) 04/29/19 Not Given Parent Or Guardian Refuses Influenza Virus Vaccine (oldterm) 04/12/19 Not Given Patient Refuses 1Result Comment: [07/02/2017] [id number] Comment: [07/02/2017] [id number] Medications acetaminophen 325 mg oral tablet 975 mg, 3, tablet, By Mouth, Every 6 hours, # 60 tablet, Refills 0, Tot. Refills 0, Acute 06/12/22 9:12:00 EDT, 06/11/21 9:11:00 EDT, Route to Pharmacy Electronically, [facility], Partialfill upon patient request if the prescription is... Start Date: 06/11/21 Stop Date: 06/12/22 Status: OrderedAmbien 10 mg oral tablet 1 tablet = 10 mg, By Mouth, Daily at bedtime, PRN for sleep, # 30 tablet, 5 Refills, Maintenance, 05/02/21 12:55:00 EST, Tablet, [facility] # 50, 165, cm, 05/02/21 11:10:00 EST, Height, 73, kg, 02/08/20 8:38:00 EST, Dry Weight Start Date: 05/02/21 Status: Orderedbarium sulfate 2% oral suspension See Instructions, Please dispense 2 (450mL) bottles for total of 900mL, # 2 each, 0 Refills, Maintenance, 07/11/21 13:14:00 EDT, [facility] # 50, Partial fill upon patient request if the prescription is for a schedule II opioid drug., Please dispe... Start Date: 07/11/21 Status: Orderedescitalopram 20 mg oral tablet 1 tablet = 20 mg, By Mouth, Daily, # 90 tablet, 3 Refills, Maintenance, 09/19/20 15:24:00 EDT, Tablet, [facility] # 50, 165, cm, 09/19/20 14:43:00 EDT, Height, 73, kg, 02/08/20 8:38:00 EST, Dry Weight Start Date: 09/19/20 Status: Orderedfolic acid 1 mg oral tablet 1 tablet = 1 mg, By Mouth, Daily at bedtime, # 30 tablet, 0 Refills, Maintenance, 02/15/14 17:52:02 EST, Tablet Start Date: 02/15/14 Status: Orderedibuprofen 600 mg oral tablet 600 mg, 1, tablet, By Mouth, 3 times a day, # 50 tablet, Refills 0, Tot. Refills 0, Acute 06/12/22 9:12:00 EDT, 06/11/21 9:11:00 EDT, Route to Pharmacy Electronically, [facility], Partialfill upon patient request if the prescription is... Start Date: 06/11/21 Stop Date: 06/12/22 Status: Orderedlidocaine 5% topical ointment 1 application, Topically, 3 times a day, # 50 Gm, 1 Refills, Maintenance, 03/10/19 13:16:00 EST, Ointment, [facility] # 50, 1 application Topically 3 times a day, 165.1, cm, 03/10/19 12:52:00 EST, Height Start Date: 03/10/19 Status: Orderedmethotrexate 2.5 mg oral tablet 6 tablet = 15 mg, By Mouth, Every week, # 30 tablet, 5 Refills, Maintenance, 05/04/21 8:40:00 EST, Tablet, [facility] # 50, 165, cm, 05/02/21 11:10:00 EST, Height, 73, kg, 02/08/20 8:38:00 EST, DryWeight Start Date: 05/04/21 Status: OrderedPriLOSEC OTC 20 mg oral delayed release tablet 1 tablet = 20 mg, By Mouth, 2 times a day, # 120 tablet, 0 Refills, Maintenance, 07/10/21 15:10:00 EDT, EC Tablet, [facility] # 50, Partial fill upon patient request if the prescription is for a schedule II opioid drug., 168, cm, 07/10/21 14:45:00... Start Date: 07/10/21 Status: OrderedSoma 350 mg oral tablet 350 mg, 1, tablet, By Mouth, 3 times a day, PRN, # 270 tablet, Refills 1, Tot. Refills 1, Maintenance, as needed for pain, 05/02/21 12:55:00 EST, Route to Pharmacy Electronically, [facility] # [facility], 165, cm, 05/02/21 11:10:00 EST, Height, 73, kg, 12... 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
--- OUTSIDE RECORDS SUMMARY | 2021-11-27 20:18 | XMS_ITS | Continuity of Care Document ---
:1975 Author Organization [facility] Address [address] [place] [address]- Care Team Providers Name Role Phone Mecca LEONARD, Pop Reveles Primary Care Physician Encounter [facility] Date(s): 07/11/20 - 08/10/20 [facility] [address] [place] [address]- Allergies, Adverse Reactions, Alerts Substance Reaction Severity [...] Not Given Patient Refuses 1Result Comment: [07/02/2017] [id number] Comment: [07/02/2017] [id number] Medications Ambien 10 mg oral tablet 1 tablet = 10 mg, By Mouth, Daily at bedtime, PRN for sleep, # 30 tablet, 0 Refills, Maintenance, 08/09/20 15:25:00 EDT, Tablet, [facility], 165, cm, 03/27/20 12:01:00 EST, Height, 73, kg, 02/08/20 8:38:00 EST, Dry Weight Start Date: 08/09/20 Status: Orderedescitalopram 20 mg oral tablet 1 tablet = 20 mg, By Mouth, Daily, # 90 tablet, 1 Refills, Maintenance, 06/20/20 16:49:00 EDT, Tablet, [facility] # 50, 165, cm, 03/27/20 12:01:00 EST, Height, 73, kg, 02/08/20 8:38:00 EST, Dry Weight Start Date: 06/20/20 Status: Orderedfolic acid 1 mg oral tablet 1 tablet = 1 mg, By Mouth, Daily, # 30 tablet, 0 Refills, Maintenance, 02/15/14 17:52:02, Tablet Start Date: 02/15/14 Status: Orderedlidocaine 5% topical ointment 1 application, Topically, 3 times a day, # 50 Gm, 1 Refills, Maintenance, 03/10/19 13:16:00 EST, Ointment, [facility] # 50, 1 application Topically 3 times a day, 165.1, cm, 03/10/19 12:52:00 EST, Height Start Date: 03/10/19 Status: Orderedmethotrexate 2.5 mg oral tablet 6 tablet = 15 mg, By Mouth, Every week, # 30 tablet, 5 Refills, Maintenance, 08/09/20 15:25:00 EDT, Tablet, [facility] # 50, 165, cm, 03/27/20 12:01:00 EST, Height, 73, kg, 02/08/20 8:38:00 EST, Dry Weight Start Date: 08/09/20 Status: OrderedMobic 15 mg oral tablet 1 tablet = 15 mg, By Mouth, Daily, # 20 tablet, 0 Refills, Maintenance, 03/27/20 13:06:00 EST, Tablet, [facility] # 50, Partial fill upon patient request if the prescription is for a schedule II opioid drug., 165, cm, 03/27/20 12:01:00 EST, Height... Start Date: 03/27/20 Status: Orderedomeprazole 40 mg oral enteric coated capsule 1 capsule = 40 mg, By Mouth, 2 times a day, before a meal, # 60 capsule, 1 Refills, Maintenance, 02/01/20 15:13:00 EST, EC Capsule, [facility], Partial fill upon patient request if the prescription is for a schedule II opioid drug., 165.1, cm... Start Date: 02/01/20 Status: OrderedSoma 350 mg oral tablet 350 mg, 1, tablet, By Mouth, 3 times a day, PRN, # 90 tablet, Refills 5, Tot. Refills 5, Maintenance, as needed for pain, 03/27/20 16:59:00 EST, Route to Pharmacy Electronically, [facility], 165, cm, 03/27/20 12:01:00 EST, Height, 73, kg, ... Start Date: 03/27/20 Status: Orderedsucralfate 1 gm oral tablet 1 Gm, 1, tablet, By Mouth, 4 times a day, # 40 tablet, Refills 0, Tot. 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
--- OUTSIDE RECORDS SUMMARY | 2021-11-27 20:18 | XMS_ITS | Continuity of Care Document ---
:1975 Author Organization [facility] Address [address] [place] [address]- Care Team Providers Name Role Phone Pop Wing MD Primary Care Physician Encounter [facility] [place] Date(s): 08/24/19 - 09/23/19 [facility] [address] [facility] [place] [address] Attending Physician: Ke Alston Admitting Physician: Admtr, Ke Referring Physician: Admtr, Ar8 Allergies, Adverse Reactions, [...] Not Given Patient Refuses 1Result Comment: [07/02/2017] [id number] Comment: [07/02/2017] [id number] Medications Ambien 10 mg oral tablet 1 tablet = 10 mg, By Mouth, Daily at bedtime, PRN for sleep, # 30 tablet, 5 Refills, Maintenance, 08/04/19 15:12:00 EDT, Tablet, [facility], 165.1, cm, 05/03/19 9:16:00 EDT, Height Start Date: 08/04/19 Status: Orderedescitalopram 20 mg oral tablet 1 tablet = 20 mg, By Mouth, Daily, # 90 tablet, 3 Refills, Maintenance, 06/08/19 9:46:00 EDT, Tablet, [facility] #[id number], 165.1, cm, 05/03/19 9:16:00 EDT, Height Start Date: 06/08/19 Status: Orderedfolic acid 1 mg oral tablet 1 tablet = 1 mg, By Mouth, Daily, # 30 tablet, 0 Refills, Maintenance, 02/15/14 17:52:02, Tablet Start Date: 02/15/14 Status: Orderedlidocaine 5% topical ointment 1 application, Topically, 3 times a day, # 50 Gm, 1 Refills, Maintenance, 03/10/19 13:16:00 EST, Ointment, [facility] # [facility], 1 application Topically 3 times a day, 165.1, cm, 03/10/19 12:52:00 EST, Height Start Date: 03/10/19 Status: Orderedmethotrexate 2.5 mg oral tablet 6 tablet = 15 mg, By Mouth, Every week, # 39 tablet, 5 Refills, Maintenance, 05/17/19 11:13:00 EDT, Tablet, [facility] # [facility], 165.1, cm, 05/03/19 9:16:00 EDT, Height Start Date: 05/17/19 Status: OrderedSoma 350 mg oral tablet 350 mg, 1, tablet, By Mouth, 3 times a day, PRN, # 90 tablet, Refills 2, Tot. 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) Bacterial vaginosis - Active recurrent(Confirmed) Right carotid bruit(Confirmed) Active Chronic abdominal pain(Confirmed) Active Chronic pain syndrome(Confirmed) Active Adenomyosis(Confirmed) Active Fibromyalgia(Confirmed) Active Generalized pain(Confirmed) Active Insomnia(Confirmed) Active 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) Active FPC methotrexate user - 6800 mg 11/24/09 Active cumulative exposure as of 03/10/19(Confirmed) Depression, major(Confirmed) Active Neuropathic pain(Confirmed) Active Social History Social History Type Response Smoking Status Current some day smoker entered on: 07/02/17 Sex
--- OUTSIDE RECORDS SUMMARY | 2021-11-27 20:19 | XMS_ITS | Continuity of Care Document ---
:1975 Author Organization [facility] Address [address] [address]- Care Team Providers Name Role Phone Howard GIVENS, Deanne Pandya Primary Care Physician Encounter [facility] [place] Date(s): 07/02/21 - 07/09/21 [facility] [address] [address]- [place] Encounter Diagnosis Orthostatic hypotension (Discharge Diagnosis) - 07/02/21 Attending Physician: Dusty Baez MD, Graham Glasgow Admitting Physician: Graham Montano Jr, MD Referring Physician: Howard GIVENS, Deanne Pandya Allergies, Adverse Reactions, Alerts Substance Reaction Severity [...] Not Given Patient Refuses 1Result Comment: [07/02/2017] [id number] Comment: [07/02/2017] [id number] Medications acetaminophen 325 mg oral tablet 975 mg, 3, tablet, By Mouth, Every 6 hours, # 60 tablet, Refills 0, Tot. Refills 0, Acute 06/12/22 9:12:00 EDT, 06/11/21 9:11:00 EDT, Route to Pharmacy Electronically, [facility], Partialfill upon patient request if the prescription is... Start Date: 06/11/21 Stop Date: 06/12/22 Status: OrderedAmbien 10 mg oral tablet 1 tablet = 10 mg, By Mouth, Daily at bedtime, PRN for sleep, # 30 tablet, 5 Refills, Maintenance, 05/02/21 12:55:00 EST, Tablet, [facility] # [facility], 165, cm, 05/02/21 11:10:00 EST, Height, 73, kg, 02/08/20 8:38:00 EST, Dry Weight Start Date: 05/02/21 Status: Orderedescitalopram 20 mg oral tablet 1 tablet = 20 mg, By Mouth, Daily, # 90 tablet, 3 Refills, Maintenance, 09/19/20 15:24:00 EDT, Tablet, [facility] # [facility], 165, cm, 09/19/20 [...] 06/11/21 9:11:00 EDT, Route to Pharmacy Electronically, [facility], Partialfill upon patient request if the prescription is... Start Date: 06/11/21 Stop Date: 06/12/22 Status: Orderedlidocaine 5% topical ointment 1 application, Topically, 3 times a day, # 50 Gm, 1 Refills, Maintenance, 03/10/19 13:16:00 EST, Ointment, [facility] # [facility], 1 application Topically 3 times a day, 165.1, cm, 03/10/19 12:52:00 EST, Height Start Date: 03/10/19 Status: Orderedmethotrexate 2.5 mg oral tablet 6 tablet = 15 mg, By Mouth, Every week, # 30 tablet, 5 Refills, Maintenance, 05/04/21 8:40:00 EST, Tablet, [facility], 165, cm, 05/02/21 11:10:00 EST, Height, 73, kg, 02/08/20 8:38:00 EST, DryWeight Start Date: 05/04/21 Status: OrderedoxyCODONE 5 mg oral tablet 5 mg, 1, tablet, By Mouth, Every 6 hours, PRN, # 20 tablet, Refills 0, Tot. Refills 0, Acute 07/18/21 10:59:00 EDT, Pain , Severe, 06/15/21 10:59:00 EDT, Route to Pharmacy Electronically, [facility], Partial fill upon patient request if the p... Start Date: 06/15/21 Stop Date: 07/18/21 Status: OrderedSoma 350 mg oral tablet 350 mg, 1, tablet, By Mouth, 3 times a day, PRN, # 270 tablet, Refills 1, Tot. Refills 1, Maintenance, as needed for pain, 05/02/21 12:55:00 EST, Route to Pharmacy Electronically, [facility], 165, cm, 05/02/21 11:10:00 EST, Height, 73, kg, 12... 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 Active Moderate major depression(Confirmed) Active Neuropathic pain(Confirmed) Active Right shoulder pain(Confirmed) Active Diagnosis Diagnosis Type Effective Dates Health Clinical Infor [facility] Status Service Orthostatic Discharge 07/02/21 hypotension Diagnosis Vital Signs Most recent to oldest [Reference Range]: 1 Height 168 cm (07/02/21 10:40 AM) Weight 65.1 kg (07/02/21 10:40 AM) Oxygen Saturation [94-100 %] 100 % (07/02/21 10:40 AM) Pulse Rate [55-90 bpm] 65 bpm (07/02/21 10:40 AM) Body Mass Index [18.5-24.99] 23.07 (07/02/21 10:40 AM) Blood Pressure [90-138/55-84 mm Hg] 104/53 mm Hg (07/02/21 10:40 AM) Blood pressure sites Arm, right (07/02/21 10:40 AM) Weight Obtained Via Standing scale (07/02/21 10:40 AM) Social History Social History Type Response Smoking Status Current some day smoker entered on: 07/02/17 Sex Female
--- OUTSIDE RECORDS SUMMARY | 2021-11-27 20:19 | XMS_ITS | Continuity of Care Document ---
:1975 Author Organization [facility] Address [address] [place] [address]- Care Team Providers Name Role Phone Pop Wing MD Primary Care Physician Encounter [facility] [place] Date(s): 05/11/19 - 07/01/19 [facility] [address] [place] [address]- [facility] Attending Physician: Milo Pabon MD Admitting Physician: Milo Pabon MD Referring Physician: Pop Wing MD Allergies, Adverse Reactions, Alerts Substance Reaction Severity [...] Not Given Patient Refuses 1Result Comment: [07/02/2017] [id number] Comment: [07/02/2017] [id number] Medications Ambien 10 mg oral tablet 1 tablet = 10 mg, By Mouth, Daily at bedtime, PRN for sleep, # 30 tablet, 5 Refills, Maintenance, 03/04/19 16:50:00 EST, Tablet, [facility], 165.1, cm, 01/13/19 13:24:00 EST, Height Start Date: 03/04/19 Status: Orderedescitalopram 20 mg oral tablet 1 tablet = 20 mg, By Mouth, Daily, # 90 tablet, 3 Refills, Maintenance, 06/08/19 9:46:00 EDT, Tablet, [facility] #[id number], 165.1, cm, 05/03/19 9:16:00 EDT, Height Start Date: 06/08/19 Status: Orderedfolic acid 1 mg oral tablet 1 tablet = 1 mg, By Mouth, Daily, # 30 tablet, 0 Refills, Maintenance, 02/15/14 17:52:02, Tablet Start Date: 02/15/14 Status: Orderedlidocaine 5% topical ointment 1 application, Topically, 3 times a day, # 50 Gm, 1 Refills, Maintenance, 03/10/19 13:16:00 EST, Ointment, [facility] # [facility], 1 application Topically 3 times a day, 165.1, cm, 03/10/19 12:52:00 EST, Height Start Date: 03/10/19 Status: Orderedmethotrexate 2.5 mg oral tablet 6 tablet = 15 mg, By Mouth, Every week, # 39 tablet, 5 Refills, Maintenance, 05/17/19 11:13:00 EDT, Tablet, [facility] # [facility], 165.1, cm, 05/03/19 9:16:00 EDT, Height Start Date: 05/17/19 Status: OrderedSoma 350 mg oral tablet 350 mg, 1, tablet, By Mouth, 3 times a day, PRN, # 90 tablet, Refills 5, Tot. 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) Bacterial vaginosis - Active recurrent(Confirmed) Right carotid bruit(Confirmed) Active Chronic abdominal pain(Confirmed) Active Chronic pain syndrome(Confirmed) Active Adenomyosis(Confirmed) Active Fibromyalgia(Confirmed) Active Generalized pain(Confirmed) Active Insomnia(Confirmed) Active 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) Active detention methotrexate user - 6800 mg 11/24/09 Active cumulative exposure as of 03/10/19(Confirmed) Depression, major(Confirmed) Active Neuropathic pain(Confirmed) Active Social History Social History Type Response Smoking Status Current some day smoker entered on: 07/02/17 Sex
--- OUTSIDE RECORDS SUMMARY | 2021-11-27 20:19 | XMS_ITS | Continuity of Care Document ---
:1975 Author Organization [facility] Address [address] [place] [address]- Care Team Providers Name Role Phone Pop Wing MD Primary Care Physician Encounter [facility] [place] Date(s): 02/01/20 - 02/08/20 [facility] [address] [place] [id number]- Encounter Diagnosis Coffee ground emesis (Discharge Diagnosis) - 02/01/20 Acute gastritis (Discharge Diagnosis) - 02/01/20 Peptic ulcer (Discharge Diagnosis) - 02/01/20 Attending Physician: Pop Wing MD Allergies, Adverse Reactions, [...] Not Given Patient Refuses 1Result Comment: [07/02/2017] [id number] Comment: [07/02/2017] [id number] Medications Ambien 10 mg oral tablet 1 tablet = 10 mg, By Mouth, Daily at bedtime, PRN for sleep, # 30 tablet, 5 Refills, Maintenance, 12/08/19 16:14:00 EDT, Tablet, [facility] # [facility], 165.1, cm, 05/03/19 9:16:00 EDT, Height Start Date: 12/08/19 Status: Orderedescitalopram 20 mg oral tablet 1 tablet = 20 mg, By Mouth, Daily, # 90 tablet, 3 Refills, Maintenance, 06/08/19 9:46:00 EDT, Tablet, [facility] #[id number], 165.1, cm, 05/03/19 9:16:00 EDT, Height Start Date: 06/08/19 Status: Orderedfolic acid 1 mg oral tablet 1 tablet = 1 mg, By Mouth, Daily, # 30 tablet, 0 Refills, Maintenance, 02/15/14 17:52:02, Tablet Start Date: 02/15/14 Status: Orderedlidocaine 5% topical ointment 1 application, Topically, 3 times a day, # 50 Gm, 1 Refills, Maintenance, 03/10/19 13:16:00 EST, Ointment, [facility] # [facility], 1 application Topically 3 times a day, 165.1, cm, 03/10/19 12:52:00 EST, Height Start Date: 03/10/19 Status: Orderedmethotrexate 2.5 mg oral tablet 6 tablet = 15 mg, By Mouth, Every week, # 30 tablet, 5 Refills, Maintenance, 12/08/19 16:14:00 EDT, Tablet, [facility] # [facility], 165.1, cm, 05/03/19 9:16:00 EDT, Height Start Date: 12/08/19 Stop Date: 06/05/20 Status: Orderedomeprazole 40 mg oral enteric coated capsule 1 capsule = 40 mg, By Mouth, 2 times a day, before a meal, # 60 capsule, 1 Refills, Maintenance, 02/01/20 15:13:00 EST, EC Capsule, [facility] # 50, Partial fill upon patient request if the prescription is for a schedule II opioid drug., 165.1, cm... Start Date: 02/01/20 Status: OrderedSoma 350 mg oral tablet 350 mg, 1, tablet, By Mouth, 3 times a day, PRN, # 90 tablet, Refills 5, Tot. Refills 5, Maintenance, as needed for pain, 12/08/19 16:14:00 EDT, Route to Pharmacy Electronically, [facility], 165.1, cm, 05/03/19 9:16:00 EDT, Height Start Date: 12/08/19 Status: Orderedsucralfate 1 gm oral tablet 1 Gm, 1, tablet, By Mouth, 4 times a day, # 40 tablet, Refills 0, Tot. Refills 0, Maintenance, 02/01/20 15:13:00 EST, Route to Pharmacy Electronically, [facility], Partial fill upon [...] Active Insomnia(Confirmed) Active 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) Active long-term methotrexate user(Confirmed) 11/24/09 Active Depression, major(Confirmed) Active Neuropathic pain(Confirmed) Active Diagnosis Diagnosis Type Effective Dates Health Status Clinical In formant Service Coffee ground Discharge 02/01/20 emesis Diagnosis Acute gastritis Discharge 02/01/20 Diagnosis Peptic ulcer Discharge 02/01/20 Diagnosis Vital Signs Most recent to oldest [Reference Range]: 1 Height 165.10 cm (02/01/20 11:43 AM) Weight 72.7 kg (02/01/20 11:43 AM) Body Mass Index [18.5-24.99] 26.67 *H* (02/01/20 11:43 AM) Weight Obtained Via Standing scale (02/01/20 11:43 AM) Social History Social History Type Response Smoking Status Current some day smoker entered on: 07/02/17 Sex Female
--- OUTSIDE RECORDS SUMMARY | 2021-11-27 20:19 | XMS_ITS | Continuity of Care Document ---
:1975 Author Organization [facility] Address [address] [place] [id number]- Care Team Providers Name Role Phone Howard GIVENS, Deanne Pandya Primary Care Physician [facility]counter [facility] Date(s): 06/04/21 - 07/04/21 [facility] [address] [place] [id number] Attending Physician: Ke Alston Admitting Physician: Admtr, ArSloane Referring Physician: Admtr, Ar8 Allergies, Adverse Reactions, [...] Not Given Patient Refuses 1Result Comment: [07/02/2017] [id number] Comment: [07/02/2017] [id number] Medications acetaminophen 325 mg oral tablet 975 mg, 3, tablet, By Mouth, Every 6 hours, # 60 tablet, Refills 0, Tot. Refills 0, Acute 06/12/22 9:12:00 EDT, 06/11/21 9:11:00 EDT, Route to Pharmacy Electronically, [facility], Partialfill upon patient request [...] 3 Refills, Maintenance, 09/19/20 15:24:00 EDT, Tablet, [facility], 165, cm, 09/19/20 14:43:00 [...] 06/11/21 9:11:00 EDT, Route to Pharmacy Electronically, [facility], Partialfill upon patient request [...] 5 Refills, Maintenance, 05/04/21 8:40:00 EST, Tablet, [facility], 165, cm, 05/02/21 11:10:00 EST, Height, 73, kg, 02/08/20 8:38:00 EST, DryWeight Start Date: 05/04/21 Status: OrderedoxyCODONE 5 mg oral tablet 5 mg, 1, tablet, By Mouth, Every 6 hours, PRN, # 20 tablet, Refills 0, Tot. Refills 0, Acute 07/18/21 10:59:00 EDT, Pain , Severe, 06/15/21 10:59:00 EDT, Route to Pharmacy Electronically, [facility], Partial fill upon patient request if the p... Start Date: 06/15/21 Stop Date: 07/18/21 Status: OrderedSoma 350 mg oral tablet 350 mg, 1, tablet, By Mouth, 3 times a day, PRN, # 270 tablet, Refills 1, Tot. Refills 1, Maintenance, as needed for pain, 05/02/21 12:55:00 EST, Route to Pharmacy Electronically, [facility] # [facility], 165, cm, 05/02/21 11:10:00 EST, Height, 73, kg, 12... 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
--- OUTSIDE RECORDS SUMMARY | 2021-11-27 20:19 | XMS_ITS | Continuity of Care Document ---
:1975 Author Organization [facility] Address [address] [place] [address]- Care Team Providers Name Role Phone Mecca LEONARD, Pop Reveles Primary Care Physician Encounter [facility] Date(s): 03/27/20 - 04/26/20 [facility] [address] [place] [address]- Allergies, Adverse Reactions, Alerts Substance Reaction Severity [...] Not Given Patient Refuses 1Result Comment: [07/02/2017] [id number] Comment: [07/02/2017] [id number] Medications Ambien 10 mg oral tablet 1 tablet = 10 mg, By Mouth, Daily at bedtime, PRN for sleep, # 30 tablet, 5 Refills, Maintenance, 12/08/19 16:14:00 EDT, Tablet, [facility], 165.1, cm, 05/03/19 9:16:00 EDT, Height Start Date: 12/08/19 Status: Orderedescitalopram 20 mg oral tablet 1 tablet = 20 mg, By Mouth, Daily, # 90 tablet, 3 Refills, Maintenance, 06/08/19 9:46:00 EDT, Tablet, [facility] #[id number], 165.1, cm, 05/03/19 9:16:00 EDT, Height Start Date: 06/08/19 Status: Orderedfolic acid 1 mg oral tablet 1 tablet = 1 mg, By Mouth, Daily, # 30 tablet, 0 Refills, Maintenance, 02/15/14 17:52:02, Tablet Start Date: 02/15/14 Status: Orderedlidocaine 5% topical ointment 1 application, Topically, 3 times a day, # 50 Gm, 1 Refills, Maintenance, 03/10/19 13:16:00 EST, Ointment, [facility], 1 application Topically 3 times a day, 165.1, cm, 03/10/19 12:52:00 EST, Height Start Date: 03/10/19 Status: Orderedmethotrexate 2.5 mg oral tablet 6 tablet = 15 mg, By Mouth, Every week, # 30 tablet, 5 Refills, Maintenance, 12/08/19 16:14:00 EDT, Tablet, [facility], 165.1, cm, 05/03/19 9:16:00 EDT, Height Start Date: 12/08/19 Stop Date: 06/05/20 Status: OrderedMobic 15 mg oral tablet 1 tablet = 15 mg, By Mouth, Daily, # 20 tablet, 0 Refills, Maintenance, 03/27/20 13:06:00 EST, Tablet, [facility] # [facility], Partial fill upon patient request if the prescription is for a schedule II opioid drug., 165, cm, 03/27/20 12:01:00 EST, Height... Start Date: 03/27/20 Status: Orderedomeprazole 40 mg oral enteric coated capsule 1 capsule = 40 mg, By Mouth, 2 times a day, before a meal, # 60 capsule, 1 Refills, Maintenance, 02/01/20 15:13:00 EST, EC Capsule, [facility] # [facility], Partial fill upon patient request if the prescription is for a schedule II opioid drug., 165.1, cm... Start Date: 02/01/20 Status: OrderedSoma 350 mg oral tablet 350 mg, 1, tablet, By Mouth, 3 times a day, PRN, # 90 tablet, Refills 5, Tot. Refills 5, Maintenance, as needed for pain, 03/27/20 16:59:00 EST, Route to Pharmacy Electronically, [facility], 165, cm, 03/27/20 12:01:00 EST, Height, 73, kg, 12/... Start Date: 03/27/20 Status: Orderedsucralfate 1 gm oral tablet 1 Gm, 1, tablet, By Mouth, 4 times a day, # 40 tablet, Refills 0, Tot. 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
--- OUTSIDE RECORDS SUMMARY | 2021-11-27 20:19 | XMS_ITS | Continuity of Care Document ---
:1975 Author Organization [facility] Address [address] [place] [address]- Care Team Providers Name Role Phone Mecca LEONARD, Pop Reveles Primary Care Physician Encounter [facility] Date(s): 02/19/21 - 03/21/21 [facility] [address] [place] [address]- Allergies, Adverse Reactions, Alerts Substance Reaction Severity [...] Not Given Patient Refuses 1Result Comment: [07/02/2017] [id number] Comment: [07/02/2017] [id number] Medications Ambien 10 mg oral tablet 1 [...] Maintenance, 09/19/20 15:24:00 EDT, Tablet, [facility], 165, cm, 09/19/20 [...] Maintenance, 03/10/19 13:16:00 EST, Ointment, [facility], 1 application Topically 3 times a day, 165.1, cm, 03/10/19 12:52:00 EST, Height Start Date: 03/10/19 Status: Orderedmethotrexate 2.5 mg oral tablet 6 tablet = 15 mg, By Mouth, Every week, # 30 tablet, 5 Refills, Maintenance, 08/09/20 15:25:00 EDT, Tablet, [facility], 165, cm, 03/27/20 12:01:00 EST, Height, 73, kg, 02/08/20 8:38:00 EST, Dry Weight Start Date: 08/09/20 Status: Orderedomeprazole 40 mg oral enteric coated capsule 1 capsule = 40 mg, By Mouth, 2 times a day, before a meal, # 60 capsule, 1 Refills, Maintenance, 02/01/20 15:13:00 EST, EC Capsule, [facility], Partial fill upon patient request if the prescription is for a schedule II opioid drug., 165.1, cm... Start Date: 02/01/20 Status: OrderedSoma 350 mg oral tablet 350 mg, 1, tablet, By Mouth, 3 times a day, PRN, # 270 tablet, Refills 0, Tot. Refills 0, Maintenance, as needed for pain, 02/08/21 16:31:00 EST, Route to Pharmacy Electronically, [facility], 165, cm, 01/12/21 8:46:00 EST, Height, 73, kg, ... Start Date: 02/08/21 Status: Orderedsucralfate 1 gm oral tablet 1 Gm, 1, tablet, By Mouth, 4 times a day, # 40 tablet, Refills 0, Tot. 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
--- OUTSIDE RECORDS SUMMARY | 2021-11-27 20:19 | XMS_ITS | Continuity of Care Document ---
:1975 Author Organization [facility] Address Unavailable , Care Team Providers Name Role Phone Howard GIVENS, Deanne Pandya Primary Care Physician Encounter [facility] Date(s): 07/10/21 - 07/17/21 [facility] Attending Physician: Abad Dupree MD Allergies, Adverse Reactions, Alerts Substance Reaction [...] Not Given Patient Refuses 1Result Comment: [07/02/2017] [id number] Comment: [07/02/2017] [id number] Medications acetaminophen 325 mg oral tablet 975 mg, 3, tablet, By Mouth, Every 6 hours, # 60 tablet, Refills 0, Tot. Refills 0, Acute 06/12/22 9:12:00 EDT, 06/11/21 9:11:00 EDT, Route to Pharmacy Electronically, [facility], Partialfill upon patient request if the prescription is... Start Date: 06/11/21 Stop Date: 06/12/22 Status: OrderedAmbien 10 mg oral tablet 1 tablet = 10 mg, By Mouth, Daily at bedtime, PRN for sleep, # 30 tablet, 5 Refills, Maintenance, 05/02/21 12:55:00 EST, Tablet, [facility], 165, cm, 05/02/21 11:10:00 EST, Height, 73, kg, 02/08/20 8:38:00 EST, Dry Weight Start Date: 05/02/21 Status: Orderedbarium sulfate 2% oral suspension See Instructions, Please dispense 2 (450mL) bottles for total of 900mL, # 2 each, 0 Refills, Maintenance, 07/11/21 13:14:00 EDT, [facility], Partial fill upon patient request if the prescription is for a schedule II opioid drug., Please dispe... Start Date: 07/11/21 Status: Orderedescitalopram 20 mg oral tablet 1 tablet = 20 mg, By Mouth, Daily, # 90 tablet, 3 Refills, Maintenance, 09/19/20 15:24:00 EDT, Tablet, [facility], 165, cm, 09/19/20 [...] 06/11/21 9:11:00 EDT, Route to Pharmacy Electronically, [facility], Partialfill upon patient request if the prescription is... Start Date: 06/11/21 Stop Date: 06/12/22 Status: Orderedlidocaine 5% topical ointment 1 application, Topically, 3 times a day, # 50 Gm, 1 Refills, Maintenance, 03/10/19 13:16:00 EST, Ointment, [facility], 1 application Topically 3 times a day, 165.1, cm, 03/10/19 12:52:00 EST, Height Start Date: 03/10/19 Status: Orderedmethotrexate 2.5 mg oral tablet 6 tablet = 15 mg, By Mouth, Every week, # 30 tablet, 5 Refills, Maintenance, 05/04/21 8:40:00 EST, Tablet, [facility], 165, cm, 05/02/21 11:10:00 EST, Height, 73, kg, 02/08/20 8:38:00 EST, DryWeight Start Date: 05/04/21 Status: OrderedoxyCODONE 5 mg oral tablet 5 mg, 1, tablet, By Mouth, Every 6 hours, PRN, # 20 tablet, Refills 0, Tot. Refills 0, Acute 07/18/21 10:59:00 EDT, Pain , Severe, 06/15/21 10:59:00 EDT, Route to Pharmacy Electronically, [facility], Partial fill upon patient request if the p... Start Date: 06/15/21 Stop Date: 07/18/21 Status: OrderedPriLOSEC OTC 20 mg oral delayed release tablet 1 tablet = 20 mg, By Mouth, 2 times a day, # 120 tablet, 0 Refills, Maintenance, 07/10/21 15:10:00 EDT, EC Tablet, [facility], Partial fill upon patient request if the prescription is for a schedule II opioid drug., 168, cm, 07/10/21 14:45:00... Start Date: 07/10/21 Status: OrderedSoma 350 mg oral tablet 350 mg, 1, tablet, By Mouth, 3 times a day, PRN, # 270 tablet, Refills 1, Tot. Refills 1, Maintenance, as needed for pain, 05/02/21 12:55:00 EST, Route to Pharmacy Electronically, 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 Active Moderate major depression(Confirmed) Active Neuropathic pain(Confirmed) Active Right shoulder pain(Confirmed) Active Vital Signs Most recent to oldest [Reference Range]: 1 Height 168 cm (07/10/21 2:45 PM) Weight 64.8 kg (07/10/21 2:45 PM) Oxygen Saturation [94-100 %] 98 % (07/10/21 2:45 PM) Pulse Rate [55-90 bpm] 81 bpm (07/10/21 2:45 PM) Body Mass Index [18.5-24.99] 22.96 (07/10/21 2:45 PM) Blood Pressure [90-138/55-84 mm Hg] 108/70 mm Hg (07/10/21 2:45 PM) Temperature [96.8-100.4 DegF] 98.1 DegF (07/10/21 2:45 PM) Blood pressure sites Arm, right (07/10/21 2:45 PM) Temperature Route Oral (07/10/21 2:45 PM) Weight Obtained Via Bed scale (07/10/21 2:45 PM) Social History Social History Type Response Smoking Status Current some day smoker entered on: 07/02/17 Sex Female
--- OUTSIDE RECORDS SUMMARY | 2021-11-27 20:19 | XMS_ITS | Continuity of Care Document ---
:1975 Author Organization [facility] Address [address] [place] [address]- Care Team Providers Name Role Phone Howard GIVENS, Deanne Pandya Primary Care Physician Encounter [facility] [id number] Date(s): 05/30/21 - 06/06/[address] [address]- Attending Physician: Deanne Lawrence NP Admitting Physician: Deanne Lawrence NP Referring Physician: Howard GIVENS, Deanne Pandya Allergies, [...] Not Given Patient Refuses 1Result Comment: [07/02/2017] [id number] Comment: [07/02/2017] [id number] Medications Ambien 10 mg oral tablet 1 tablet = 10 mg, By Mouth, Daily at bedtime, PRN for sleep, # 30 tablet, 5 Refills, Maintenance, 05/02/21 12:55:00 EST, Tablet, [facility], 165, cm, 05/02/21 [...] Maintenance, 05/04/21 8:40:00 EST, Tablet, [facility], 165, cm, 05/02/21 11:10:00 EST, Height, 73, kg, 02/08/20 8:38:00 EST, DryWeight Start Date: 05/04/21 Status: OrderedSoma 350 mg oral tablet 350 mg, 1, tablet, By Mouth, 3 times a day, PRN, # 270 tablet, Refills 1, Tot. 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
--- OUTSIDE RECORDS SUMMARY | 2021-11-27 20:19 | XMS_ITS | Continuity of Care Document ---
:1975 Author Organization [facility] Address Unavailable , Care Team Providers Name Role Phone Howard GIVENS, Deanne Pandya Primary Care Physician [place] [facility] [place] 05/04/21 - 05/11/21 [facility] Encounter Diagnosis Symptomatic cholelithiasis (Discharge Diagnosis) - 05/04/21 Attending Physician: Munir Corral Referring Physician: Deanne Lawrence NP Allergies, Adverse Reactions, Alerts Substance Reaction Severity Status doxycycline hives flush Active morphine nausea Active Coconut burning in throat [...] Not Given Patient Refuses 1Result Comment: [07/02/2017] [id number] Comment: [07/02/2017] [id number] Medications Ambien 10 mg oral tablet 1 [...] Maintenance, 05/04/21 8:40:00 EST, Tablet, [facility], 165, cm, 05/02/21 11:10:00 EST, Height, 73, kg, 02/08/20 8:38:00 EST, DryWeight Start Date: 05/04/21 Status: OrderedSoma 350 mg oral tablet 350 mg, 1, tablet, By Mouth, 3 times a day, PRN, # 270 tablet, Refills 1, Tot. Refills 1, Maintenance, as needed for pain, 05/02/21 12:55:00 EST, Route to Pharmacy Electronically, [facility], 165, cm, 05/02/21 [...] Diagnosis Type Effective Dates Health Clinical Infor mant Status Service Symptomatic Discharge 05/04/21 cholelithiasis Diagnosis Vital Signs Most recent to oldest [Reference Range]: 1 Height 165 cm (05/04/21 1:07 PM) Weight 67.5 kg (05/04/21 1:07 PM) Pulse Rate [55-90 bpm] 85 bpm (05/04/21 1:07 PM) Body Mass Index [18.5-24.99] 24.79 (05/04/21 1:07 PM) Blood Pressure [90-138/55-84 mm Hg] 123/77 mm Hg (05/04/21 1:07 PM) Respiratory Rate [16-30 br/min] 16 br/min (05/04/21 1:07 PM) Temperature [96.8-100.4 DegF] 98 DegF (05/04/21 1:07 PM) Blood pressure sites Arm, right (05/04/21 1:07 PM) Temperature Route Femoral (05/04/21 1:07 PM) Weight Obtained Via Standing scale (05/04/21 1:07 PM) Social History Social History Type Response Smoking Status Current some day smoker entered on: 07/02/17 Sex Female
--- OUTSIDE RECORDS SUMMARY | 2021-11-27 20:19 | XMS_ITS | Continuity of Care Document ---
:1975 Author Organization [facility] Address [address] [place] [address]- Care Team Providers Name Role Phone Pop Wing MD Primary Care Physician Encounter [facility] Date(s): 02/02/20 - 03/03/20 [facility] [address] [place] [address] Allergies, Adverse Reactions, Alerts Substance Reaction Severity Status morphine nausea Active penicillins hives high fever vomiting Active Cipro hives Active Bactrim hives Active Coconut burning in throat blisters in mouth Active sulfa drugs hives Active Ciprofloxacin allergy blisters Benadryl restless leg syndrone makes me wired Active Duloxetine fatigue, word slurring, confusion Active Immunizations Given and Recorded Vaccine Date Status Refusal Reason pneumococcal 23-valent vaccine1 07/02/17 Given tetanus/diphtheria/pertussis, acel(Tdap)2 07/02/17 Given Not Given Vaccine Date Status Refusal Reason Influenza Virus Vaccine (oldterm) 04/29/19 Not Given Parent Or Guardian Refuses Influenza Virus Vaccine (oldterm) 04/12/19 Not Given Patient Refuses 1Result Comment: [07/02/2017] [id number] Comment: [07/02/2017] [id number] Medications Ambien 10 mg oral tablet 1 [...] 3 Refills, Maintenance, 06/08/19 9:46:00 EDT, Tablet, [facility] #[id number], 165.1, cm, 05/03/19 9:16:00 EDT, Height Start Date: 06/08/19 Status: Orderedfolic acid 1 mg oral tablet 1 tablet = 1 mg, By Mouth, Daily, # 30 tablet, 0 Refills, Maintenance, 02/15/14 17:52:02, Tablet Start Date: 02/15/14 Status: Orderedlidocaine 5% topical ointment 1 application, Topically, 3 times a day, # 50 Gm, 1 Refills, Maintenance, 03/10/19 13:16:00 EST, Ointment, [facility], 1 application Topically 3 times a day, 165.1, cm, 03/10/19 12:52:00 EST, Height Start Date: 03/10/19 Status: Orderedmethotrexate 2.5 mg oral tablet 6 tablet = 15 mg, By Mouth, Every week, # 30 tablet, 5 Refills, Maintenance, 12/08/19 16:14:00 EDT, Tablet, [facility], 165.1, cm, 05/03/19 9:16:00 EDT, Height Start Date: 12/08/19 Stop Date: 06/05/20 Status: Orderedomeprazole 40 mg oral enteric coated capsule 1 capsule = 40 mg, By Mouth, 2 times a day, before a meal, # 60 capsule, 1 Refills, Maintenance, 02/01/20 15:13:00 EST, EC Capsule, [facility] # [facility], Partial fill upon patient request if the prescription is for a schedule II opioid drug., 165.1, cm... Start Date: 02/01/20 Status: OrderedSoma 350 mg oral tablet 350 mg, 1, tablet, By Mouth, 3 times a day, PRN, # 90 tablet, Refills 5, Tot. Refills 5, Maintenance, as needed for pain, 12/08/19 16:14:00 EDT, Route to Pharmacy Electronically, [facility], 165.1, cm, 05/03/19 9:16:00 EDT, Height Start Date: 12/08/19 Status: Orderedsucralfate 1 gm oral tablet 1 Gm, 1, tablet, By Mouth, 4 times a day, # 40 tablet, Refills 0, Tot. Refills 0, Maintenance, 02/01/20 15:13:00 EST, Route to Pharmacy Electronically, [facility] # [facility], Partial fill upon patient [...] Active Insomnia(Confirmed) Active 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) Active [facility] methotrexate user(Confirmed) 11/24/09 Active Depression, major(Confirmed) Active Neuropathic pain(Confirmed) Active Social History Social History Type Response Smoking Status Current some day smoker entered on: 07/02/17 Sex Female
--- OUTSIDE RECORDS SUMMARY | 2021-11-27 20:19 | XMS_ITS | Continuity of Care Document ---
:1975 Author Organization [facility] Address [address] [place] [address]- Care Team Providers Name Role Phone Pop Wing MD Primary Care Physician En[place] [facility] Date(s): 05/26/19 - 09/23/19 [facility] [address] [facility] [place] [address] Attending Physician: Radha Tompkins MD Admitting Physician: Radha Tompkins MD Referring Physician: Pop Wing MD Allergies, [...] Not Given Patient Refuses 1Result Comment: [07/02/2017] [id number] Comment: [07/02/2017] [id number] Medications Ambien 10 mg oral tablet 1 [...] 1 Refills, Maintenance, 03/10/19 13:16:00 EST, Ointment, [facility], 1 application Topically 3 times a day, 165.1, cm, 03/10/19 12:52:00 EST, Height Start Date: 03/10/19 Status: Orderedmethotrexate 2.5 mg oral tablet 6 tablet = 15 mg, By Mouth, Every week, # 39 tablet, 5 Refills, Maintenance, 05/17/19 11:13:00 EDT, Tablet, [facility] # [facility], 165.1, cm, 05/03/19 9:16:00 EDT, Height Start Date: 05/17/19 Status: OrderedSoma 350 mg oral tablet 350 mg, 1, tablet, By Mouth, 3 times a day, PRN, # 90 tablet, Refills 2, Tot. Refills 2, Maintenance, as needed for pain, 08/06/19 15:42:00 EDT, Route to Pharmacy Electronically, [facility], 165.1, cm, 05/03/19 [...]
--- OUTSIDE RECORDS SUMMARY | 2021-11-27 20:19 | XMS_ITS | Continuity of Care Document ---
:1975 Author Organization [facility] Address [address] [place] [address]- Care Team Providers Name Role Phone Mecca LEONARD, Pop Reveles Primary Care Physician [facility] 10[facility]20 - 11/04/20 [facility] [address] [place] [address]- Allergies, Adverse Reactions, Alerts Substance Reaction Severity [...] Not Given Patient Refuses 1Result Comment: [07/02/2017] [id number] Comment: [07/02/2017] [id number] Medications Ambien 10 mg oral tablet 1 tablet = 10 mg, By Mouth, Daily at bedtime, PRN for sleep, # 90 tablet, 0 Refills, Maintenance, 09/19/20 15:23:00 EDT, Tablet, [facility], 165, cm, 09/19/20 14:43:00 EDT, Height, 73, kg, 02/08/20 8:38:00 EST, Dry Weight Start Date: 09/19/20 Status: Orderedescitalopram 20 mg oral tablet 1 [...] Maintenance, 03/10/19 13:16:00 EST, Ointment, [facility] # [facility], 1 application Topically 3 times a day, 165.1, cm, 03/10/19 12:52:00 EST, Height Start Date: 03/10/19 Status: Orderedmethotrexate 2.5 mg oral tablet 6 tablet = 15 mg, By Mouth, Every week, # 30 tablet, 5 Refills, Maintenance, 08/09/20 15:25:00 EDT, Tablet, [facility] # [facility], 165, cm, 03/27/20 12:01:00 EST, Height, 73, kg, 02/08/20 8:38:00 EST, Dry Weight Start Date: 08/09/20 Status: Orderedomeprazole 40 mg oral enteric coated capsule 1 capsule = 40 mg, By Mouth, 2 times a day, before a meal, # 60 capsule, 1 Refills, Maintenance, 02/01/20 15:13:00 EST, EC Capsule, [facility], Partial fill upon patient request if the prescription is for a schedule II opioid drug., 165.1, cm... Start Date: 02/01/20 Status: OrderedSoma 350 mg oral tablet 350 mg, 1, tablet, By Mouth, 3 times a day, PRN, # 270 tablet, Refills 0, Tot. Refills 0, Maintenance, as needed for pain, 09/19/20 15:23:00 EDT, Route to Pharmacy Electronically, [facility], 165, cm, 09/19/20 14:43:00 EDT, Height, 73, kg, 12... Start Date: 09/19/20 Status: Orderedsucralfate 1 gm oral tablet 1 Gm, 1, tablet, By Mouth, 4 times a day, # 40 tablet, Refills 0, Tot. 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
--- OUTSIDE RECORDS SUMMARY | 2021-11-27 20:19 | XMS_ITS | Continuity of Care Document ---
:1975 Author Organization [facility] Address [address] [place] [address], [address] [address]- Care Team Providers Name Role Phone Howard GIVENS, Deanne Pandya Primary Care Physician Encounter 08/10/21 - 08/17/21 [facility] [address], [address] [address]- Attending Physician: Abad Dupree MD Admitting Physician: Abad Dupree MD Referring Physician: Abad Dupree MD Allergies, Adverse Reactions, Alerts Substance Reaction Severity Status doxycycline hives flush Active morphine nausea Active penicillins hives high fever vomiting Active Benadryl restless leg syndrone makes me wired Active Coconut burning in throat blisters in mouth Active Duloxetine fatigue, word slurring, confusion Active sulfa drugs hives Active Ciprofloxacin allergy blisters Cipro hives Active Bactrim hives Active Immunizations Given and Recorded Vaccine Date Status Refusal Reason influenza virus vaccine, inactivated 12/14/20 Recorded pneumococcal 23-valent vaccine1 07/02/17 Given tetanus/diphtheria/pertussis, acel(Tdap)2 07/02/17 Given Not Given Vaccine Date Status Refusal Reason Influenza Virus Vaccine (oldterm) 04/29/19 Not Given Parent Or Guardian Refuses Influenza Virus Vaccine (oldterm) 04/12/19 Not Given Patient Refuses 1Result Comment: [07/02/2017] [id number] Comment: [07/02/2017] [id number] Medications acetaminophen 325 mg oral tablet 975 mg, 3, tablet, By Mouth, Every 6 hours, # 60 tablet, Refills 0, Tot. Refills 0, Acute 06/12/22 9:12:00 EDT, 06/11/21 9:11:00 EDT, Route to Pharmacy Electronically, [facility], Partialfill upon patient request if the prescription is... Start Date: 06/11/21 Stop Date: 06/12/22 Status: OrderedAmbien 10 mg oral tablet 1 tablet = 10 mg, By Mouth, Daily at bedtime, PRN for sleep, # 30 tablet, 5 Refills, Maintenance, 05/02/21 12:55:00 EST, Tablet, [facility] # [facility], 165, cm, 05/02/21 11:10:00 EST, Height, 73, kg, 02/08/20 8:38:00 EST, Dry Weight Start Date: 05/02/21 Status: Orderedbarium sulfate 2% oral suspension See Instructions, Please dispense 2 (450mL) bottles for total of 900mL, # 2 each, 0 Refills, Maintenance, 07/11/21 13:14:00 EDT, [facility] # [facility], Partial [...] 06/11/21 9:11:00 EDT, Route to Pharmacy Electronically, [facility], Partialfill upon patient request [...] 5 Refills, Maintenance, 05/04/21 8:40:00 EST, Tablet, [facility], 165, cm, 05/02/21 11:10:00 EST, Height, 73, kg, 02/08/20 8:38:00 EST, DryWeight Start Date: 05/04/21 Status: OrderedPriLOSEC OTC 20 mg oral delayed release tablet 1 tablet = 20 mg, By Mouth, 2 times a day, # 120 tablet, 0 Refills, Maintenance, 07/10/21 15:10:00 EDT, EC Tablet, [facility] # [facility], Partial [...] 05/02/21 12:55:00 EST, Route to Pharmacy Electronically, [facility], 165, cm, 05/02/21 11:10:00 [...] Insomnia(Confirmed) Active 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) 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
--- OUTSIDE RECORDS SUMMARY | 2021-11-27 20:19 | XMS_ITS | Continuity of Care Document ---
:1975 Author Organization [facility] Address [address] [place] [address]- Care Team Providers Name Role Phone Pop Wing MD Primary Care Physician [facility] - 06/11/19 [facility] [address] [place] [address]- [facility] Attending Physician: Ke Alston Admitting Physician: AdmtrKe Referring Physician: Admtr ArSloane Allergies, Adverse Reactions, Alerts Substance Reaction Severity [...] Not Given Patient Refuses 1Result Comment: [07/02/2017] [id number] Comment: [07/02/2017] [id number] Medications Ambien 10 mg oral tablet 1 [...] 3 Refills, Maintenance, 06/08/19 9:46:00 EDT, Tablet, [facility] #[id number], 165.1, cm, 05/03/19 9:16:00 EDT, Height Start Date: 06/08/19 Status: Orderedfolic acid 1 mg oral tablet 1 tablet = 1 mg, By Mouth, Daily, # 30 tablet, 0 Refills, Maintenance, 02/15/14 17:52:02, Tablet Start Date: 02/15/14 Status: Orderedlidocaine 5% topical ointment 1 application, Topically, 3 times a day, # 50 Gm, 1 Refills, Maintenance, 03/10/19 13:16:00 EST, Ointment, [facility] # [facility], 1 application Topically 3 times a day, 165.1, cm, 03/10/19 12:52:00 EST, Height Start Date: 03/10/19 Status: Orderedmethotrexate 2.5 mg oral tablet 6 tablet = 15 mg, By Mouth, Every week, # 39 tablet, 5 Refills, Maintenance, 05/17/19 11:13:00 EDT, Tablet, [facility] # [facility], 165.1, cm, 05/03/19 9:16:00 EDT, Height Start Date: 05/17/19 Status: OrderedSoma 350 mg oral tablet 350 mg, 1, tablet, By Mouth, 3 times a day, PRN, # 90 tablet, Refills 5, Tot. Refills 5, Maintenance, as needed for pain, 03/04/19 16:50:00 EST, Route to Pharmacy Electronically, [facility], 165.1, cm, 01/13/19 [...] Active Insomnia(Confirmed) Active 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) Active longterm methotrexate user - 6800 mg 11/24/09 Active cumulative exposure as of 03/10/19(Confirmed) Depression, major(Confirmed) Active Neuropathic pain(Confirmed) Active Social History Social History Type Response Smoking Status Current some day smoker entered on: 07/02/17 Sex
--- OUTSIDE RECORDS SUMMARY | 2021-11-27 20:19 | XMS_ITS | Continuity of Care Document ---
:1975 Author Organization [facility] Address [address] [place] [address]- Care Team Providers Name Role Phone Mecca LEONARD, Pop Reveles Primary Care Physician [facility]): 10/04/20 - 11/03/20 [facility] [address] [place] [address]- Allergies, Adverse Reactions, Alerts Substance Reaction Severity [...] Not Given Patient Refuses 1Result Comment: [07/02/2017] [id number] Comment: [07/02/2017] [id number] Medications Ambien 10 mg oral tablet 1 [...] 09/19/20 15:24:00 EDT, Tablet, [facility], 165, cm, 09/19/20 [...] 5 Refills, Maintenance, 08/09/20 15:25:00 EDT, Tablet, [facility], 165, cm, 03/27/20 12:01:00 EST, Height, 73, kg, 02/08/20 8:38:00 EST, Dry Weight Start Date: 08/09/20 Status: Orderedomeprazole 40 mg oral enteric coated capsule 1 capsule = 40 mg, By Mouth, 2 times a day, before a meal, # 60 capsule, 1 Refills, Maintenance, 02/01/20 15:13:00 EST, EC Capsule, [facility], Partial fill upon [...] Active Insomnia(Confirmed) Active 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
--- OUTSIDE RECORDS SUMMARY | 2021-11-27 20:19 | XMS_ITS | Continuity of Care Document ---
:1975 Author Organization [facility] Address [address] [place] [address]- Care Team Providers Name Role Phone Pop Wing MD Primary Care Physician [facility]): 03/10/19 - 03/20/19 [facility] [address] [place] [address]- [facility] Attending Physician: AdmKe mendez Admitting Physician: Admtr, Ke Referring Physician: Admtr, [...] vaccine1 07/02/17 Given tetanus/diphtheria/pertussis, acel(Tdap)2 07/02/17 Given 1Result Comment: [07/02/2017] [id number] Comment: [07/02/2017] [id number] Medications Ambien 10 mg oral tablet 1 tablet = 10 mg, By Mouth, Daily at bedtime, PRN for sleep, # 30 tablet, 5 Refills, Maintenance, 03/04/19 16:50:00 EST, Tablet, [facility], 165.1, cm, 01/13/19 13:24:00 EST, Height Start Date: 03/04/19 Status: Orderedescitalopram 20 mg oral tablet 1 tablet = 20 mg, By Mouth, Daily, # 30 tablet, 11 Refills, Maintenance, 03/03/19 17:15:00 EST, Tablet, [facility] # [facility], 165.1, cm, 01/13/19 13:24:00 EST, Height Start Date: 03/03/19 Status: Orderedfolic acid 1 mg oral tablet 1 tablet = 1 mg, By Mouth, Daily, # 30 tablet, 0 Refills, Maintenance, 02/15/14 17:52:02, Tablet Start Date: 02/15/14 Status: Orderedlidocaine 5% topical ointment 1 application, Topically, 3 times a day, # 50 Gm, 1 Refills, Maintenance, 03/10/19 13:16:00 EST, Ointment, [facility] # [facility], 1 application Topically 3 times a day, 165.1, cm, 03/10/19 12:52:00 EST, Height Start Date: 03/10/19 Status: Orderedmethotrexate 2.5 mg oral tablet 6 tablet = 15 mg, By Mouth, Every week, NO REFILLS WITHOUT BLOODWORK, SEEN 03/10 AND ORDERS PLACED, #39 tablet, 5 Refills, Maintenance, 05/20/18 11:40:07 EDT, Tablet, [facility] Start Date: 05/20/18 Status: OrderedSoma 350 mg oral tablet 350 mg, 1, tablet, By Mouth, 3 times a day, PRN, # 90 tablet, Refills 5, Tot. 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 Active cumulative exposure as of 03/10/19(Confirmed) Depression, major(Confirmed) Active Neuropathic pain(Confirmed) Active Vital Signs Most recent to oldest [Reference Range]: 1 Height 165.5 cm (05/06/14 4:08 PM) Weight 72.3 kg (05/06/14 4:08 PM) Oxygen Saturation [94-100 %] 98 % (05/06/14 4:08 PM) Pulse Rate [55-90 bpm] 80 bpm (05/06/14 4:08 PM) Body Mass Index [18.50-24.99] 26.4 *H* (05/06/14 4:08 PM) Blood Pressure [90-138/55-84 mm Hg] 116/68 mm Hg (05/06/14 4:08 PM) Temperature [96.8-100.4 DegF] 98.1 DegF (05/06/14 4:08 PM) Blood pressure sites Arm, left (05/06/14 4:08 PM) Social History Social History Type Response Smoking Status Current some day smoker entered on: 07/02/17 Sex
--- OUTSIDE RECORDS SUMMARY | 2021-11-27 20:19 | XMS_ITS | Continuity of Care Document ---
:1975 Author Organization [facility] Address [address] [place] [address]- Care Team Providers Name Role Phone Mecca LEONARD, Pop Reveles Primary Care Physician [facility] 08[facility]08/20 - 09/07/20 [facility] [address] [place] [address]- Allergies, Adverse Reactions, Alerts Substance Reaction Severity [...] Not Given Patient Refuses 1Result Comment: [07/02/2017] [id number] Comment: [07/02/2017] [id number] Medications Ambien 10 mg oral tablet 1 tablet = 10 mg, By Mouth, Daily at bedtime, PRN for sleep, # 30 tablet, 0 Refills, Maintenance, 09/07/20 11:08:00 EDT, Tablet, [facility], 165, cm, 03/27/20 12:01:00 EST, Height, 73, kg, 02/08/20 8:38:00 EST, Dry Weight Start Date: 09/07/20 Status: Orderedescitalopram 20 mg oral tablet 1 tablet = 20 mg, By Mouth, Daily, # 90 tablet, 1 Refills, Maintenance, 06/20/20 16:49:00 EDT, Tablet, [facility], 165, cm, 03/27/20 [...] 1 Refills, Maintenance, 03/10/19 13:16:00 EST, Ointment, [facility], 1 application Topically 3 times a day, 165.1, cm, 03/10/19 12:52:00 EST, Height Start Date: 03/10/19 Status: Orderedmethotrexate 2.5 mg oral tablet 6 tablet = 15 mg, By Mouth, Every week, # 30 tablet, 5 Refills, Maintenance, 08/09/20 15:25:00 EDT, Tablet, [facility], 165, cm, 03/27/20 12:01:00 EST, Height, 73, kg, 02/08/20 8:38:00 EST, Dry Weight Start Date: 08/09/20 Status: OrderedMobic 15 mg oral tablet 1 tablet = 15 mg, By Mouth, Daily, # 20 tablet, 0 Refills, Maintenance, 03/27/20 13:06:00 EST, Tablet, [facility] # [facility], Partial fill upon patient request if the prescription is for a schedule II opioid drug., 165, cm, 03/27/20 12:01:00 EST, Height... Start Date: 03/27/20 Status: Orderedomeprazole 40 mg oral enteric coated capsule 1 capsule = 40 mg, By Mouth, 2 times a day, before a meal, # 60 capsule, 1 Refills, Maintenance, 02/01/20 15:13:00 EST, EC Capsule, [facility], Partial fill upon patient request if the prescription is for a schedule II opioid drug., 165.1, cm... Start Date: 02/01/20 Status: OrderedSoma 350 mg oral tablet 350 mg, 1, tablet, By Mouth, 3 times a day, PRN, # 90 tablet, Refills 0, Tot. Refills 0, Maintenance, as needed for pain, 09/07/20 11:08:00 EDT, Route to Pharmacy Electronically, [facility], 165, cm, 03/27/20 12:01:00 EST, Height, 73, kg, ... Start Date: 09/07/20 Status: Orderedsucralfate 1 gm oral tablet 1 Gm, 1, tablet, By Mouth, 4 times a day, # 40 tablet, Refills 0, Tot. 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
--- OUTSIDE RECORDS SUMMARY | 2021-11-27 20:19 | XMS_ITS | Continuity of Care Document ---
:1975 Author Organization [facility] Address [address] [place] [address]- Care Team Providers Name Role Phone Pop Wing MD Primary Care Physician [facility]): 02/08/20 - 02/08/[address] [address] Discharge Disposition: A-D/C Home Attending Physician: Alicia Corbin MD Admitting Physician: Alicia Corbin MD Referring Physician: Alicia Corbin MD Allergies, Adverse Reactions, Alerts Substance Reaction [...] Not Given Patient Refuses 1Result Comment: [07/02/2017] [id number] Comment: [07/02/2017] [id number] Medications Ambien 10 mg oral tablet 1 [...] 3 Refills, Maintenance, 06/08/19 9:46:00 EDT, Tablet, [id number], 165.1, cm, 05/03/19 9:16:00 [...] 12/08/19 16:14:00 EDT, Route to Pharmacy Electronically, [facility], 165.1, cm, 05/03/19 9:16:00 EDT, Height Start Date: 12/08/19 Status: Orderedsucralfate 1 gm oral tablet 1 Gm, 1, tablet, By Mouth, 4 times a day, # 40 tablet, Refills 0, Tot. 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 Depression, major(Confirmed) Active Neuropathic pain(Confirmed) Active Procedures Procedure Date Related Diagnosis Body Site Status EGD - Esophagogastroduodenoscopy 02/08/20 Completed Vital Signs Most recent to oldest 1 2 3 [Reference Range]: Height 165 cm (02/08/20 8:38 AM) Oxygen Saturation [94-100 99 % 100 % 100 % %] (02/08/20 9:55 AM) (02/08/20 9:47 AM) (02/08/20 8:38 AM) Pulse Rate [55-90 bpm] 60 bpm 58 bpm 69 bpm (02/08/20 9:55 AM) (02/08/20 9:47 AM) (02/08/20 8:38 AM) Blood Pressure 107/45 mm Hg 97/44 mm Hg 107/58 mm Hg [90-138/55-84 mm Hg] (02/08/20 9:55 AM) (02/08/20 9:47 AM) (01/24 07/13 8:38 AM) Respiratory Rate [16-30 13 br/min 15 br/min 19 br/mi n br/min] *L* *L* (02/08/20 8:38 A M) (02/08/20 9:55 AM) (02/08/20 9:47 AM) Temperature [96.8-100.4 97.5 DegF DegF] (02/08/20 8:38 AM) Mode of Delivery (Oxygen) Room air Room air Room a ir (02/08/20 9:55 AM) (02/08/20 9:47 AM) (02/08/20 8:38 AM) Blood pressure sites Arm, left Arm, left Arm, left (02/08/20 9:55 AM) (02/08/20 9:47 AM) (02/08/20 8:38 AM) Temperature Route Temporal (02/08/20 8:38 AM) Dry Weight 73 kg (02/08/20 8:38 AM) Dry Weight Obtained Via Patient/family stated (02/08/20 8:38 AM) Social History Social History Type Response Smoking Status Current some day smoker entered on: 07/02/17 Sex Female
--- OUTSIDE RECORDS SUMMARY | 2021-11-27 20:19 | XMS_ITS | Continuity of Care Document ---
:1975 Author Organization [facility] Address [address] [place] [address]- Care Team Providers Name Role Phone Mecca LEONARD, Pop Reveles Primary Care Physician [facility]): 03/30/19 - 03/30/[address] [address]- [facility] Attending Physician: Gunner Morfin MD Allergies, Adverse Reactions, Alerts Substance Reaction [...] tetanus/diphtheria/pertussis, acel(Tdap)2 07/02/17 Given 1Result Comment: [07/02/2017] [id number] Comment: [07/02/2017] [id number] Medications Ambien 10 mg oral tablet 1 tablet = 10 mg, By Mouth, Daily at bedtime, PRN for sleep, # 30 tablet, 5 Refills, Maintenance, 03/04/19 16:50:00 EST, Tablet, [facility], 165.1, cm, 01/13/19 13:24:00 EST, Height Start Date: 03/04/19 Status: Orderedcodeine-guaifenesin 10 mg-100 mg/5 mL oral syrup 5 mL, By Mouth, Every 6 hours, PRN for cough, # 120 mL, 0 Refills, Acute 04/06/19 11:23:00 EST, 03/30/19 11:23:00 EST, Syrup, [facility], 5 mL By Mouth Every 6 hours,PRN:for cough, 165.1, cm, 03/30/19 10:58:00 EST, Height Start Date: 03/30/19 Stop Date: 04/06/19 Status: Orderedescitalopram 20 mg oral tablet 1 tablet = 20 mg, By Mouth, Daily, # 30 tablet, 11 Refills, Maintenance, 03/03/19 17:15:00 EST, Tablet, [facility], 165.1, cm, 01/13/19 13:24:00 EST, Height Start Date: 03/03/19 Status: Orderedfolic acid 1 mg oral tablet 1 tablet = 1 mg, By Mouth, Daily, # 30 tablet, 0 Refills, Maintenance, 02/15/14 17:52:02, Tablet Start Date: 02/15/14 Status: Orderedlidocaine 5% topical ointment 1 application, Topically, 3 times a day, # 50 Gm, 1 Refills, Maintenance, 03/10/19 13:16:00 EST, Ointment, [facility] # [facility], 1 application Topically 3 times a day, 165.1, cm, 03/10/19 12:52:00 EST, Height Start Date: 03/10/19 Status: Orderedmethotrexate 2.5 mg oral tablet 6 tablet = 15 mg, By Mouth, Every week, NO REFILLS WITHOUT BLOODWORK, SEEN 03/10 AND ORDERS PLACED, #39 tablet, 5 Refills, Maintenance, 05/20/18 11:40:07 EDT, Tablet, [facility] Start Date: 05/20/18 Status: OrderedSoma 350 mg oral tablet 350 mg, 1, tablet, By Mouth, 3 times a day, PRN, # 90 tablet, Refills 5, Tot. Refills 5, Maintenance, as needed for pain, 03/04/19 16:50:00 EST, Route to Pharmacy Electronically, [facility], 165.1, cm, 01/13/19 13:24:00 EST, Height Start Date: 03/04/19 Status: OrderedTamiflu 75 mg oral capsule 1 capsule = 75 mg, By Mouth, 2 times a day, for 5 days, # 10 capsule, 0 Refills, Acute 04/04/19 11:21:00 EST, 03/30/19 11:21:00 EST, Capsule, [facility], 165.1, cm, 03/30/19 10:58:00 EST, Height Start Date: 03/30/19 Stop Date: 04/04/19 Status: Ordered Problem List Condition Effective Dates [...]
--- OUTSIDE RECORDS SUMMARY | 2021-11-27 20:19 | XMS_ITS | Continuity of Care Document ---
:1975 Author Organization [facility] Address [address] [place] [address]- Care Team Providers Name Role Phone Mecca LEONARD, Pop Reveles Primary Care Physician [facility]): 01/12/21 - 02/11/21 [facility] [address] [place] [address]- Allergies, Adverse Reactions, Alerts Substance Reaction Severity [...] Not Given Patient Refuses 1Result Comment: [07/02/2017] [id number] Comment: [07/02/2017] [id number] Medications Ambien 10 mg oral tablet 1 [...] 3 Refills, Maintenance, 09/19/20 15:24:00 EDT, Tablet, [facility] # [facility], 165, cm, 09/19/20 [...] 5 Refills, Maintenance, 08/09/20 15:25:00 EDT, Tablet, [facility] # 50, 165, cm, 03/27/20 [...] 02/08/21 16:31:00 EST, Route to Pharmacy Electronically, [facility], 165, cm, 01/12/21 8:46:00 EST, Height, 73, kg, ... Start Date: 02/08/21 Status: Orderedsucralfate 1 gm oral tablet 1 Gm, 1, tablet, By Mouth, 4 times a day, # 40 tablet, Refills 0, Tot. 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
--- OUTSIDE RECORDS SUMMARY | 2021-11-27 20:19 | XMS_ITS | Continuity of Care Document ---
:1975 Author Organization [facility] Address [address] [place] [id number]- Care Team Providers Name Role Phone Howard GIVENS, Deanne Pandya Primary Care Physician Encounter [facility] R [id number] Date(s): 07/05/21 - 07/12/[address] [address]- Attending Physician: Dusty Baez MD, Graham Glasgow Admitting Physician: Graham Montano Jr, MD Referring Physician: Dusty Baez MD, Graham Glasgow Allergies, Adverse Reactions, Alerts Substance Reaction Severity [...] Not Given Patient Refuses 1Result Comment: [07/02/2017] [id number] Comment: [07/02/2017] [id number] Medications acetaminophen 325 mg oral tablet 975 mg, 3, tablet, By Mouth, Every 6 hours, # 60 tablet, Refills 0, Tot. Refills 0, Acute 06/12/22 9:12:00 EDT, 06/11/21 9:11:00 EDT, Route to Pharmacy Electronically, [facility], Partialfill upon patient request if the prescription is... Start Date: 06/11/21 Stop Date: 06/12/22 Status: OrderedAmbien 10 mg oral tablet 1 tablet = 10 mg, By Mouth, Daily at bedtime, PRN for sleep, # 30 tablet, 5 Refills, Maintenance, 05/02/21 12:55:00 EST, Tablet, [facility] # [facility], 165, cm, 05/02/21 11:10:00 EST, Height, 73, kg, 02/08/20 8:38:00 EST, Dry Weight Start Date: 05/02/21 Status: Orderedbarium sulfate 2% oral suspension See Instructions, Please dispense 2 (450mL) bottles for total of 900mL, # 2 each, 0 Refills, Maintenance, 07/11/21 13:14:00 EDT, [facility] # 50, Partial fill upon patient request if the prescription is for a schedule II opioid drug., Please dispe... Start Date: 07/11/21 Status: Orderedescitalopram 20 mg oral tablet 1 tablet = 20 mg, By Mouth, Daily, # 90 tablet, 3 Refills, Maintenance, 09/19/20 15:24:00 EDT, Tablet, [facility] # 50, 165, cm, 09/19/20 [...] 06/11/21 9:11:00 EDT, Route to Pharmacy Electronically, [facility], Partialfill upon patient request if the prescription is... Start Date: 06/11/21 Stop Date: 06/12/22 Status: Orderedlidocaine 5% topical ointment 1 application, Topically, 3 times a day, # 50 Gm, 1 Refills, Maintenance, 03/10/19 13:16:00 EST, Ointment, [facility] # 50, 1 application Topically 3 times a day, 165.1, cm, 03/10/19 12:52:00 EST, Height Start Date: 03/10/19 Status: Orderedmethotrexate 2.5 mg oral tablet 6 tablet = 15 mg, By Mouth, Every week, # 30 tablet, 5 Refills, Maintenance, 05/04/21 8:40:00 EST, Tablet, [facility] # 50, 165, cm, 05/02/21 11:10:00 EST, Height, 73, kg, 02/08/20 8:38:00 EST, DryWeight Start Date: 05/04/21 Status: OrderedoxyCODONE 5 mg oral tablet 5 mg, 1, tablet, By Mouth, Every 6 hours, PRN, # 20 tablet, Refills 0, Tot. Refills 0, Acute 07/18/21 10:59:00 EDT, Pain , Severe, 06/15/21 10:59:00 EDT, Route to Pharmacy Electronically, [facility] # 50, Partial fill upon patient request if the p... 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
--- OUTSIDE RECORDS SUMMARY | 2021-11-27 20:19 | XMS_ITS | Continuity of Care Document ---
:1975 Author Organization [facility] Address Unavailable , Care Team Providers Name Role Phone Howard GIVENS, Deanne Pandya Primary Care Physician [place] [facility] [place] 08/17/21 - 09/16/21 [facility] Allergies, Adverse Reactions, Alerts Substance Reaction Severity [...] Not Given Patient Refuses 1Result Comment: [07/02/2017] [id number] Comment: [07/02/2017] [id number] Medications Ambien 10 mg oral tablet 1 tablet = 10 mg, By Mouth, Daily at bedtime, PRN for sleep, # 30 tablet, 5 Refills, Maintenance, 08/20/21 15:37:00 EDT, Tablet, [facility], 168, cm, 08/20/21 15:02:00 EDT, Height, 65.3, kg, 06/11/21 6:16:00 EDT, Dry Weight Start Date: 08/20/21 Status: OrderedAtivan 0.5 mg oral tablet 1 tablet = 0.5 mg, By Mouth, Daily, for 30 days, # 12 tablet, 5 Refills, Acute 02/16/22 15:35:00 EST, 08/20/21 15:35:00 EDT, [facility] # 50, Partial fill upon patient request if the prescription is for a schedule II opioid drug., 168, cm, ... Start Date: 08/20/21 Stop Date: 02/16/22 Status: Orderedescitalopram 20 mg oral tablet 1 tablet = 20 mg, By Mouth, Daily, # 90 tablet, 3 Refills, Maintenance, 08/20/21 15:37:00 EDT, Tablet, [facility] # 50, 168, cm, 08/20/21 15:02:00 EDT, Height, 65.3, kg, 06/11/21 6:16:00 EDT, Dry Weight Start Date: 08/20/21 Status: Orderedfolic acid 1 mg oral tablet 1 tablet = 1 mg, By Mouth, Daily at bedtime, # 30 tablet, 0 Refills, Maintenance, 02/15/14 17:52:02 EST, Tablet Start Date: 02/15/14 Status: Orderedmethotrexate 2.5 mg oral tablet 6 tablet = 15 mg, By Mouth, Every week, # 30 tablet, 5 Refills, Maintenance, 05/04/21 8:40:00 EST, Tablet, [facility] # 50, 165, cm, 05/02/21 11:10:00 EST, Height, 73, kg, 02/08/20 8:38:00 EST, DryWeight Start Date: 05/04/21 Status: OrderedSoma 350 mg oral tablet 350 mg, 1, tablet, By Mouth, 3 times a day, PRN, # 270 tablet, Refills 1, Tot. Refills 1, Maintenance, as needed for pain, 08/20/21 15:37:00 EDT, Route to Pharmacy Electronically, [facility] # [facility], 168, cm, 08/20/21 15:02:00 EDT, Height, 65.3, kg,... 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
--- OUTSIDE RECORDS SUMMARY | 2021-11-27 20:19 | XMS_ITS | Continuity of Care Document ---
:[address] [facility] Address [address] [place] [address]- Care Team Providers Name Role Phone Howard GIVENS, Deanne Pandya Primary Care Physician Encounter [facility] Date(s): 06/05/21 - 07/05/21 [facility] [address] [place] [address]- Allergies, Adverse Reactions, Alerts Substance Reaction Severity [...] Not Given Patient Refuses 1Result Comment: [07/02/2017] [id number] Comment: [07/02/2017] [id number] Medications acetaminophen 325 mg oral tablet 975 mg, 3, tablet, By Mouth, Every 6 hours, # 60 tablet, Refills 0, Tot. Refills 0, Acute 06/12/22 9:12:00 EDT, 06/11/21 9:11:00 EDT, Route to Pharmacy Electronically, [facility], Partialfill upon patient request if the prescription is... Start Date: 06/11/21 Stop Date: 06/12/22 Status: OrderedAmbien 10 mg oral tablet 1 tablet = 10 mg, By Mouth, Daily at bedtime, PRN for sleep, # 30 tablet, 5 Refills, Maintenance, 05/02/21 12:55:00 EST, Tablet, [facility] # 50, 165, cm, 05/02/21 11:10:00 EST, Height, 73, kg, 02/08/20 8:38:00 EST, Dry Weight Start Date: 05/02/21 Status: Orderedescitalopram 20 mg oral tablet 1 tablet = 20 mg, By Mouth, Daily, # 90 tablet, 3 Refills, Maintenance, 09/19/20 15:24:00 EDT, Tablet, [facility] # 50, 165, [...] 06/11/21 9:11:00 EDT, Route to Pharmacy Electronically, [facility], Partialfill upon patient request [...] 5 Refills, Maintenance, 05/04/21 8:40:00 EST, Tablet, [facility] # 50, 165, cm, 05/02/21 11:10:00 EST, Height, 73, kg, 02/08/20 8:38:00 EST, DryWeight Start Date: 05/04/21 Status: OrderedoxyCODONE 5 mg oral tablet 5 mg, 1, tablet, By Mouth, Every 6 hours, PRN, # 20 tablet, Refills 0, Tot. Refills 0, Acute 07/18/21 10:59:00 EDT, Pain , Severe, 06/15/21 10:59:00 EDT, Route to Pharmacy Electronically, [facility] # 50, Partial fill upon patient request if the p... Start Date: 06/15/21 Stop Date: 07/18/21 Status: OrderedSoma 350 mg oral tablet 350 mg, 1, tablet, By Mouth, 3 times a day, PRN, # 270 tablet, Refills 1, Tot. Refills 1, Maintenance, as needed for pain, 05/02/21 12:55:00 EST, Route to Pharmacy Electronically, [facility] # 50, 165, cm, 05/02/21 11:10:00 EST, Height, 73, kg, 12... 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
--- OUTSIDE RECORDS SUMMARY | 2021-11-27 20:19 | XMS_ITS | Continuity of Care Document ---
:1975 Author Organization [facility] Address Unavailable , Care Team Providers Name Role Phone Howard GIVENS, Deanne Pandya Primary Care Physician Encounter [facility] Date(s): 05/04/21 - 06/03/21 [facility] Attending Physician: Ke Alston Admitting Physician: AdmKe mendez Referring Physician: Admtr, Ar8 Allergies, Adverse Reactions, Alerts Substance Reaction Severity Status doxycycline hives flush Active morphine nausea Active Cipro hives Active Bactrim hives Active Coconut burning in throat blisters in mouth Active Duloxetine fatigue, word slurring, confusion Active penicillins hives high fever vomiting Active sulfa drugs hives Active Ciprofloxacin allergy blisters Benadryl restless leg syndrone makes me wired Active Immunizations Given and Recorded Vaccine Date Status Refusal Reason influenza virus vaccine, inactivated 12/14/20 Recorded pneumococcal 23-valent vaccine1 07/02/17 Given tetanus/diphtheria/pertussis, acel(Tdap)2 07/02/17 Given Not Given Vaccine Date Status Refusal Reason Influenza Virus Vaccine (oldterm) 04/29/19 Not Given Parent Or Guardian Refuses Influenza Virus Vaccine (oldterm) 04/12/19 Not Given Patient Refuses 1Result Comment: [07/02/2017] [id number] Comment: [07/02/2017] [id number] Medications Ambien 10 mg oral tablet 1 [...] 3 Refills, Maintenance, 09/19/20 15:24:00 EDT, Tablet, [facility] # [facility], 165, cm, 09/19/20 [...] 5 Refills, Maintenance, 05/04/21 8:40:00 EST, Tablet, [facility] # 50, 165, cm, 05/02/21 11:10:00 EST, Height, 73, kg, 02/08/20 8:38:00 EST, DryWeight Start Date: 05/04/21 Status: OrderedSoma 350 mg oral tablet 350 mg, 1, tablet, By Mouth, 3 times a day, PRN, # 270 tablet, Refills 1, Tot. 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
--- OUTSIDE RECORDS SUMMARY | 2021-11-27 20:19 | XMS_ITS | Continuity of Care Document ---
:1975 Author Organization [facility] Address [address] [place] [address]- Care Team Providers Name Role Phone Howard GIVENS, Deanne Pandya Primary Care Physician Encounter [facility] Date(s): 03/26/21 - 04/25/21 [facility] [address] [place] [address]- Allergies, Adverse Reactions, Alerts Substance Reaction Severity [...] Not Given Patient Refuses 1Result Comment: [07/02/2017] [id number] Comment: [07/02/2017] [id number] Medications Ambien 10 mg oral tablet 1 tablet = 10 mg, By Mouth, Daily at bedtime, PRN for sleep, # 30 tablet, 0 Refills, Maintenance, 04/06/21 12:56:00 EST, Tablet, [facility], 04/10/21, 165, cm, 03/23/21 10:25:00 EST, Height, 73, kg, 02/08/20 8:38:00 EST, Dry Weight Start Date: 04/06/21 Status: Orderedescitalopram 20 mg oral tablet 1 [...] 02/08/21 16:31:00 EST, Route to Pharmacy Electronically, [facility], 165, cm, 01/12/21 8:46:00 EST, Height, 73, kg, ... Start Date: 02/08/21 Status: Orderedsucralfate 1 gm oral tablet 1 Gm, 1, tablet, By Mouth, 4 times a day, # 40 tablet, Refills 0, Tot. Refills 0, Maintenance, 02/01/20 15:13:00 EST, Route to Pharmacy Electronically, [facility], Partial fill upon [...] Active Insomnia(Confirmed) Active 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) Active assisted methotrexate user(Confirmed) 11/24/09 Active Moderate major depression(Confirmed) Active Neuropathic pain(Confirmed) Active Right shoulder pain(Confirmed) Active Social History Social History Type Response Smoking Status Current some day smoker entered on: 07/02/17 Sex Female
--- OUTSIDE RECORDS SUMMARY | 2021-11-27 20:20 | XMS_ITS | Continuity of Care Document ---
:1975 Author Organization [facility] Address [address] [place] [id number]- Care Team Providers Name Role Phone Howard GIVENS, Deanne Pandya Primary Care Physician Encounter [facility] [place] Date(s): 08/23/21 - 08/30/[address] [address]- Encounter Diagnosis Orthostasis (Discharge Diagnosis) - 08/23/21 Attending Physician: Dusty Baez MD, Graham Glasgow Admitting Physician: Graham Montano Jr, MD Referring Physician: Howard GIVENS, Deanne Pandya Allergies, Adverse Reactions, Alerts Substance Reaction Severity Status doxycycline hives flush Active morphine nausea Active Cipro hives Active Benadryl restless leg syndrone makes me wired Active Coconut burning in throat blisters in mouth Active Duloxetine fatigue, word slurring, confusion Active penicillins hives high fever vomiting Active sulfa drugs hives Active Ciprofloxacin allergy blisters Bactrim hives Active Immunizations Given and Recorded Vaccine Date Status Refusal Reason influenza virus vaccine, inactivated 12/14/20 Recorded pneumococcal 23-valent vaccine1 07/02/17 Given tetanus/diphtheria/pertussis, acel(Tdap)2 07/02/17 Given Not Given Vaccine Date Status Refusal Reason Influenza Virus Vaccine (oldterm) 04/29/19 Not Given Parent Or Guardian Refuses Influenza Virus Vaccine (oldterm) 04/12/19 Not Given Patient Refuses 1Result Comment: [07/02/2017] [id number] Comment: [07/02/2017] [id number] Medications Ambien 10 mg oral tablet 1 tablet = 10 mg, By Mouth, Daily at bedtime, PRN for sleep, # 30 tablet, 5 Refills, Maintenance, 08/20/21 15:37:00 EDT, Tablet, [facility], 168, cm, 08/20/21 15:02:00 EDT, Height, 65.3, kg, 06/11/21 6:16:00 EDT, Dry Weight Start Date: 08/20/21 Status: OrderedAtivan 0.5 mg oral tablet 1 tablet = 0.5 mg, By Mouth, Daily, for 30 days, # 12 tablet, 5 Refills, Acute 02/16/22 15:35:00 EST, 08/20/21 15:35:00 EDT, [facility] # 50, Partial fill upon patient request if the prescription is for a schedule II opioid drug., 168, cm, ... Start Date: 08/20/21 Stop Date: 02/16/22 Status: Orderedescitalopram 20 mg oral tablet 1 tablet = 20 mg, By Mouth, Daily, # 90 tablet, 3 Refills, Maintenance, 08/20/21 15:37:00 EDT, Tablet, [facility] # [facility], 168, cm, 08/20/21 15:02:00 [...] Maintenance, 05/04/21 8:40:00 EST, Tablet, [facility] # [facility], 165, cm, 05/02/21 11:10:00 EST, Height, 73, kg, 02/08/20 8:38:00 EST, DryWeight Start Date: 05/04/21 Status: OrderedSoma 350 mg oral tablet 350 mg, 1, tablet, By Mouth, 3 times a day, PRN, # 270 tablet, Refills 1, Tot. Refills 1, Maintenance, as needed for pain, 08/20/21 15:37:00 EDT, Route to Pharmacy Electronically, [facility], 168, cm, 08/20/21 15:02:00 EDT, Height, 65.3, kg,... 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 Moderate major depression(Confirmed) Active Neuropathic pain(Confirmed) Active Right shoulder pain(Confirmed) Active Diagnosis Diagnosis Type Effective Dates Health Status Clinical Serv ice Informant Orthostasis Discharge 08/23/21 Diagnosis Vital Signs Most recent to oldest [Reference Range]: 1 Height 168 cm (08/23/21 8:20 AM) Weight 64.4 kg (08/23/21 8:20 AM) Pulse Rate [55-90 bpm] 71 bpm (08/23/21 8:20 AM) Body Mass Index [18.5-24.99] 22.82 (08/23/21 8:20 AM) Blood Pressure [90-138/55-84 mm Hg] 109/64 mm Hg (08/23/21 8:20 AM) Social History Social History Type Response Smoking Status Current some day smoker entered on: 07/02/17 Sex Female
--- OUTSIDE RECORDS SUMMARY | 2021-11-27 20:20 | XMS_ITS | Continuity of Care Document ---
:1975 Author Organization [facility] Address [address] [place] [address]- Care Team Providers Name Role Phone Mecca LEONARD, Pop Reveles Primary Care Physician Encounter [facility] Date(s): 01/12/21 - 02/11/21 [facility] [address] [place] [address]- Allergies, Adverse Reactions, Alerts Substance Reaction Severity [...] Not Given Patient Refuses 1Result Comment: [07/02/2017] [id number] Comment: [07/02/2017] [id number] Medications Ambien 10 mg oral tablet 1 [...] 3 Refills, Maintenance, 09/19/20 15:24:00 EDT, Tablet, [facility] # [facility], 165, cm, [...] 1 Refills, Maintenance, 03/10/19 13:16:00 EST, Ointment, [facility], 1 application Topically 3 times a day, 165.1, cm, 03/10/19 12:52:00 EST, Height Start Date: 03/10/19 Status: Orderedmethotrexate 2.5 mg oral tablet 6 tablet = 15 mg, By Mouth, Every week, # 30 tablet, 5 Refills, Maintenance, 08/09/20 15:25:00 EDT, Tablet, [facility] # [facility], 165, cm, 03/27/20 12:01:00 EST, Height, 73, kg, 02/08/20 8:38:00 EST, Dry Weight Start Date: 08/09/20 Status: Orderedomeprazole 40 mg oral enteric coated capsule 1 capsule = 40 mg, By Mouth, 2 times a day, before a meal, # 60 capsule, 1 Refills, Maintenance, 02/01/20 15:13:00 EST, EC Capsule, [facility] # [facility], Partial fill upon patient request if the prescription is for a schedule II opioid drug., 165.1, cm... Start Date: 02/01/20 Status: OrderedSoma 350 mg oral tablet 350 mg, 1, tablet, By Mouth, 3 times a day, PRN, # 270 tablet, Refills 0, Tot. Refills 0, Maintenance, as needed for pain, 02/08/21 16:31:00 EST, Route to Pharmacy Electronically, [facility], 165, cm, 01/12/21 [...]
--- OUTSIDE RECORDS SUMMARY | 2021-11-27 20:20 | XMS_ITS | Continuity of Care Document ---
:1975 Author Organization [facility] Address [address] [place] [address]- Care Team Providers Name Role Phone Howrad GIVENS, Deanne Pandya Primary Care Physician Encounter [facility] Date(s): 10/01/21 - 10/31/21 [facility] [address] [address]- Attending Physician: Admandrea, Ke Admitting Physician: AdmtrKe Referring Physician: Admtr, Ar8 Allergies, Adverse Reactions, [...] Not Given Patient Refuses 1Result Comment: [07/02/2017] [id number] Comment: [07/02/2017] [id number] Medications Ambien 10 mg oral tablet 1 [...] Acute 02/16/22 15:35:00 EST, 08/20/21 15:35:00 EDT, [facility] # [facility], Partial fill upon patient request if the prescription is for a schedule II opioid drug., 168, cm, ... Start Date: 08/20/21 Stop Date: 02/16/22 Status: Orderedescitalopram 20 mg oral tablet 1 tablet = 20 mg, By Mouth, Daily, # 90 tablet, 3 Refills, Maintenance, 08/20/21 15:37:00 EDT, Tablet, [facility] # [facility], 168, cm, 08/20/21 15:02:00 [...] 5 Refills, Maintenance, 05/04/21 8:40:00 EST, Tablet, [facility] # [facility], 165, cm, 05/02/21 11:10:00 EST, Height, 73, kg, 02/08/20 8:38:00 EST, DryWeight Start Date: 05/04/21 Status: Orderedmidodrine 2.5 mg oral tablet .5, By Mouth, 2 times a day, # 60 each, Refills 0, Tot. Refills 0, Maintenance, 08/23/21 8:46:00 EDT, Route to Pharmacy Electronically, [facility] # [facility], Partial fill upon patient request if the prescription is for a schedule II opioid drug., 168,... Start Date: 08/23/21 Status: OrderedSoma 350 mg oral tablet 350 mg, 1, tablet, By Mouth, 3 times a day, PRN, # 270 tablet, Refills 1, Tot. Refills 1, Maintenance, as needed for pain, 08/20/21 15:37:00 EDT, Route to Pharmacy Electronically, [facility], 168, cm, 08/20/21 15:02:00 EDT, Height, 65.3, kg,... 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
--- OUTSIDE RECORDS SUMMARY | 2021-11-27 20:20 | XMS_ITS | Continuity of Care Document ---
:1975 Author Organization [facility] Address [address] [address]- Care Team Providers Name Role Phone Howard GIVENS, Deanne Pandya Primary Care Physician Encounter [facility] Date(s): 08/22/21 - 09/21/21 [facility] [address] [address]- Allergies, Adverse Reactions, Alerts Substance Reaction Severity [...] Not Given Patient Refuses 1Result Comment: [07/02/2017] [id number] Comment: [07/02/2017] [id number] Medications Ambien 10 mg oral tablet 1 [...] 02/16/22 15:35:00 EST, 08/20/21 15:35:00 EDT, [facility] # [facility], Partial fill upon patient request if the prescription is for a schedule II opioid drug., 168, cm, ... Start Date: 08/20/21 Stop Date: 02/16/22 Status: Orderedescitalopram 20 mg oral tablet 1 tablet = 20 mg, By Mouth, Daily, # 90 tablet, 3 Refills, Maintenance, 08/20/21 15:37:00 EDT, Tablet, [facility] # 50, 168, [...] Refills, Maintenance, 05/04/21 8:40:00 EST, Tablet, [facility] # 50, 165, cm, 05/02/21 11:10:00 EST, Height, 73, kg, 02/08/20 8:38:00 EST, DryWeight Start Date: 05/04/21 Status: OrderedSoma 350 mg oral tablet 350 mg, 1, tablet, By Mouth, 3 times a day, PRN, # 270 tablet, Refills 1, Tot. Refills 1, Maintenance, as needed for pain, 08/20/21 15:37:00 EDT, Route to Pharmacy Electronically, [facility] # [facility], 168, cm, 08/20/21 15:02:00 EDT, Height, 65.3, kg,... 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
--- OUTSIDE RECORDS SUMMARY | 2021-11-27 20:20 | XMS_ITS | Continuity of Care Document ---
:1975 Author Organization [facility] Adult Address [address] [place] [address]- Care Team Providers Name Role Phone Pop Wing MD Primary Care Physician Encounter 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) - 12/08/19 PLEVA (pityriasis lichenoides et varioliformis acuta) - on MTX (Discharge Diagnosis) - 12/08/19 Insomnia (Discharge Diagnosis) - 12/08/19 Anxiety (Discharge Diagnosis) - 12/08/19 Attending Physician: Pop Wing MD Allergies, Adverse [...] Not Given Patient Refuses 1Result Comment: [07/02/2017] [id number] Comment: [07/02/2017] [id number] Medications Ambien 10 mg oral tablet 1 tablet = 10 mg, By Mouth, Daily at bedtime, PRN for sleep, # 30 tablet, 5 Refills, Maintenance, 12/08/19 16:14:00 EDT, Tablet, [facility] # [facility], 165.1, cm, 05/03/19 9:16:00 EDT, Height Start Date: 12/08/19 Status: Orderedescitalopram 20 mg oral tablet 1 tablet = 20 mg, By Mouth, Daily, # 90 tablet, 3 Refills, Maintenance, 06/08/19 9:46:00 EDT, Tablet, [facility]acy #[id number], 165.1, cm, 05/03/19 [...] 5 Refills, Maintenance, 12/08/19 16:14:00 EDT, Tablet, [facility] # 50, 165.1, cm, 05/03/19 9:16:00 EDT, Height Start Date: 12/08/19 Stop Date: 06/05/20 Status: OrderedSoma 350 mg oral tablet 350 mg, 1, tablet, By Mouth, 3 times a day, PRN, # 90 tablet, Refills 5, Tot. 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) Bacterial vaginosis - Active recurrent(Confirmed) Right carotid bruit(Confirmed) Active Chronic abdominal pain(Confirmed) Active Chronic pain syndrome(Confirmed) Active Adenomyosis(Confirmed) Active Fibromyalgia(Confirmed) Active Generalized pain(Confirmed) Active Insomnia(Confirmed) Active 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) Active 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 Depression, major(Confirmed) Active Neuropathic pain(Confirmed) Active Diagnosis Diagnosis Type Effective Dates Health Clinical Infor mant Status Service 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
--- OUTSIDE RECORDS SUMMARY | 2021-11-27 20:20 | XMS_ITS | Continuity of Care Document ---
:1975 Author Organization [facility] Adult Address [address] [place] [address]- Care Team Providers Name Role Phone Mecca LEONARD, Pop Reveles Primary Care Physician Encounter [facility] [place] Date(s): 12/27/20 - 01/03/21 [facility] Adult [address] [place] [address]- Attending Physician: Navjot LEONARD, Gunner Kumar Allergies, Adverse Reactions, Alerts Substance Reaction Severity Status morphine nausea Active Duloxetine fatigue, word slurring, confusion Active [...] Not Given Patient Refuses 1Result Comment: [07/02/2017] [id number] Comment: [07/02/2017] [id number] Medications Ambien 10 mg oral tablet 1 [...] Maintenance, 09/19/20 15:24:00 EDT, Tablet, [facility] # [facility], 165, cm, 09/19/20 [...] 02/01/20 15:13:00 EST, EC Capsule, [facility] # 50, Partial fill upon patient request if the prescription is for a schedule II opioid drug., 165.1, cm... Start Date: 02/01/20 Status: OrderedSoma 350 mg oral tablet 350 mg, 1, tablet, By Mouth, 3 times a day, PRN, # 270 tablet, Refills 0, Tot. Refills 0, Maintenance, as needed for pain, 11/23/20 17:09:00 EDT, Route to Pharmacy Electronically, [facility], [place] TO FILL EARLY PATIENT LOST PREVIOUS SCRIPT, 165... Start Date: 11/23/20 Status: Orderedsucralfate 1 gm oral tablet 1 Gm, 1, tablet, By Mouth, 4 times a day, # 40 tablet, Refills 0, Tot. Refills 0, Maintenance, 02/01/20 15:13:00 EST, Route to Pharmacy Electronically, [facility], Partial fill upon [...]
--- OUTSIDE RECORDS SUMMARY | 2021-11-27 20:20 | XMS_ITS | Continuity of Care Document ---
:1975 Author Organization [facility] Address [address] [place] [address]- Care Team Providers Name Role Phone Mecca LOENARD, Pop Reveles Primary Care Physician Encounter [facility] Date(s): 03/27/20 - 04/03/20 [facility] [address] [place] [address]- Encounter Diagnosis Right shoulder pain (Discharge Diagnosis) - 03/27/20 Attending Physician: Lydia TRACING LATHE SET UP OPERATOR, Miri Allergies, Adverse Reactions, Alerts Substance Reaction Severity [...] Not Given Patient Refuses 1Result Comment: [07/02/2017] [id number] Comment: [07/02/2017] [id number] Medications Ambien 10 mg oral tablet 1 [...] Refills, Maintenance, 06/08/19 9:46:00 EDT, Tablet, [facility]acy #[id number], 165.1, cm, 05/03/19 9:16:00 [...] Maintenance, 12/08/19 16:14:00 EDT, Tablet, [facility] # 50, 165.1, cm, 05/03/19 9:16:00 EDT, Height Start Date: 12/08/19 Stop Date: 06/05/20 Status: OrderedMobic 15 mg oral tablet 1 tablet = 15 mg, By Mouth, Daily, # 20 tablet, 0 Refills, Maintenance, 03/27/20 13:06:00 EST, Tablet, 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
--- OUTSIDE RECORDS SUMMARY | 2021-11-27 20:20 | XMS_ITS | Continuity of Care Document ---
:1975 Author Organization [facility] Address [address] [place] [address]- Care Team Providers Name Role Phone Pop Wing MD Primary Care Physician Encounter [facility] Date(s): 09/19/20 - 09/26/20 [facility] [address] [place] [address]- Encounter Diagnosis Moderate major depression (Discharge Diagnosis) - 09/19/20 Fibromyalgia (Discharge Diagnosis) - 09/19/20 Chronic pain syndrome (Discharge Diagnosis) - 09/19/20 Insomnia (Discharge Diagnosis) - 09/19/20 Attending Physician: Pop Wing MD Allergies, Adverse [...] Not Given Patient Refuses 1Result Comment: [07/02/2017] [id number] Comment: [07/02/2017] [id number] Medications Ambien 10 mg oral tablet 1 [...] 09/19/20 15:23:00 EDT, [facility] to [facility], [facility] [...] Active Insomnia(Confirmed) Active 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) 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 Active Moderate major depression(Confirmed) Active Neuropathic pain(Confirmed) Active Right shoulder pain(Confirmed) Active Diagnosis Diagnosis Type Effective Dates Health Clinical Infor mant Status Service Moderate major Discharge 09/19/20 depression Diagnosis Fibromyalgia Discharge 09/19/20 Diagnosis Chronic pain Discharge 09/19/20 syndrome Diagnosis Insomnia Discharge 09/19/20 Diagnosis Vital Signs Most recent to oldest [Reference Range]: 1 Height 165 cm (09/19/20 2:43 PM) Weight 68.0 kg (09/19/20 2:43 PM) Body Mass Index [18.5-24.99] 24.98 (09/19/20 2:43 PM) Weight Obtained Via Standing scale (09/19/20 2:43 PM) Social History Social History Type Response Smoking Status Current some day smoker entered on: 07/02/17 Sex Female
--- OUTSIDE RECORDS SUMMARY | 2021-11-27 20:20 | XMS_ITS | Continuity of Care Document ---
:1975 Author Organization [facility] Address [address] [place] [address]- Care Team Providers Name Role Phone Mecca LEONARD, Pop Reveles Primary Care Physician Encounter [facility] Date(s): 10/05/20 - 11/04/20 [facility] [address] [place] [address]- Allergies, Adverse Reactions, Alerts Substance Reaction Severity [...] Not Given Patient Refuses 1Result Comment: [07/02/2017] [id number] Comment: [07/02/2017] [id number] Medications Ambien 10 mg oral tablet 1 [...] Maintenance, 08/09/20 15:25:00 EDT, Tablet, [facility], 165, cm, 03/27/20 12:01:00 EST, Height, 73, kg, 02/08/20 8:38:00 EST, Dry Weight Start Date: 08/09/20 Status: Orderedomeprazole 40 mg oral enteric coated capsule 1 capsule = 40 mg, By Mouth, 2 times a day, before a meal, # 60 capsule, 1 Refills, Maintenance, 02/01/20 15:13:00 EST, EC Capsule, [facility] # [...] 09/19/20 15:23:00 EDT, Route to Pharmacy Electronically, [facility], 165, cm, 09/19/20 14:43:00 EDT, Height, 73, kg, 12... Start Date: 09/19/20 Status: Orderedsucralfate 1 gm oral tablet 1 Gm, 1, tablet, By Mouth, 4 times a day, # 40 tablet, Refills 0, Tot. 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
--- OUTSIDE RECORDS SUMMARY | 2021-11-27 20:20 | XMS_ITS | Continuity of Care Document ---
:1975 Author Organization [facility] Address [address] [place] [address]- Care Team Providers Name Role Phone Mecca LEONARD, Pop Reveles Primary Care Physician Encounter [facility] Date(s): 10/04/20 - 11/03/20 [facility] [address] [place] [address]- Allergies, Adverse Reactions, Alerts Substance Reaction Severity [...] Not Given Patient Refuses 1Result Comment: [07/02/2017] [id number] Comment: [07/02/2017] [id number] Medications Ambien 10 mg oral tablet 1 [...] 3 Refills, Maintenance, 09/19/20 15:24:00 EDT, Tablet, [facility] # [facility], 165, cm, 09/19/20 14:43:00 [...] 1 Refills, Maintenance, 03/10/19 13:16:00 EST, Ointment, [facility] # [facility], 1 application Topically 3 times a day, 165.1, cm, 03/10/19 12:52:00 EST, Height Start Date: 03/10/19 Status: Orderedmethotrexate 2.5 mg oral tablet 6 tablet = 15 mg, By Mouth, Every week, # 30 tablet, 5 Refills, Maintenance, 08/09/20 15:25:00 EDT, Tablet, [facility] # [facility], 165, cm, 03/27/20 12:01:00 EST, Height, 73, kg, 02/08/20 8:38:00 EST, Dry Weight Start Date: 08/09/20 Status: Orderedomeprazole 40 mg oral enteric coated capsule 1 capsule = 40 mg, By Mouth, 2 times a day, before a meal, # 60 capsule, 1 Refills, Maintenance, 02/01/20 15:13:00 EST, EC Capsule, [facility] # [facility], [...] 09/19/20 15:23:00 EDT, Route to Pharmacy Electronically, [facility] # [facility], 165, cm, 09/19/20 14:43:00 [...] Active Insomnia(Confirmed) Active 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
--- OUTSIDE RECORDS SUMMARY | 2021-11-27 20:20 | XMS_ITS | Continuity of Care Document ---
:1975 Author Organization [facility] Address [address] [place] [address]- Care Team Providers Name Role Phone Howard GIVENS, Deanne Pandya Primary Care Physician Encounter [facility] ACCT R [id number] Date(s): 07/05/21 - 08/04/21 [facility] [address] [address]- Attending Physician: AdmKe mendez Admitting Physician: Admtr, Ar8 Referring Physician: Admtr, Ar8 Allergies, Adverse Reactions, Alerts Substance Reaction Severity Status doxycycline hives flush Active morphine nausea Active Cipro hives Active [place] burning in throat blisters in mouth Active penicillins hives high fever vomiting Active sulfa drugs hives Active Ciprofloxacin allergy blisters Bactrim hives Active Benadryl restless leg syndrone [...] Not Given Patient Refuses 1Result Comment: [07/02/2017] [id number] Comment: [07/02/2017] [id number] Medications acetaminophen 325 mg oral tablet 975 mg, 3, tablet, By Mouth, Every 6 hours, # 60 tablet, Refills 0, Tot. Refills 0, Acute 06/12/22 9:12:00 EDT, 06/11/21 9:11:00 EDT, Route to Pharmacy Electronically, [facility], Partialfill upon patient request if the prescription is... Start Date: 06/11/21 Stop Date: 06/12/22 Status: OrderedAmbien 10 mg oral tablet 1 tablet = 10 mg, By Mouth, Daily at bedtime, PRN for sleep, # 30 tablet, 5 Refills, Maintenance, 05/02/21 12:55:00 EST, Tablet, [facility] # 50, 165, cm, 05/02/21 11:10:00 EST, Height, 73, kg, 02/08/20 8:38:00 EST, Dry Weight Start Date: 05/02/21 Status: Orderedbarium sulfate 2% oral suspension See Instructions, Please dispense 2 (450mL) bottles for total of 900mL, # 2 each, 0 Refills, Maintenance, 07/11/21 13:14:00 EDT, [facility] # [...] 06/11/21 9:11:00 EDT, Route to Pharmacy Electronically, [facility], Partialfill upon patient request if the [...] Refills, Maintenance, 07/10/21 15:10:00 EDT, EC Tablet, [facility] # [...] 05/02/21 12:55:00 EST, [facility], [facility] Insomnia(Confirmed) Active 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
--- OUTSIDE RECORDS SUMMARY | 2021-11-27 20:20 | XMS_ITS | Continuity of Care Document ---
:1975 Author Organization [facility] Adult Address [address] [place] [address]- Care Team Providers Name Role Phone Howard GIVENS, Deanne Pandya Primary Care Physician Encounter [facility] [place] Date(s): 04/24/21 - 05/24/21 [facility] [address] [place] [address]- Allergies, Adverse Reactions, Alerts Substance Reaction Severity [...] Not Given Patient Refuses 1Result Comment: [07/02/2017] [id number] Comment: [07/02/2017] [id number] Medications Ambien 10 mg oral tablet 1 [...] Maintenance, 09/19/20 15:24:00 EDT, Tablet, [facility] [...] Active Insomnia(Confirmed) Active 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) Active 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
--- OUTSIDE RECORDS SUMMARY | 2021-11-27 20:20 | XMS_ITS | Continuity of Care Document ---
:1975 Author Organization [facility] Adult Address [address] [place] [address]- Care Team Providers Name Role Phone Howard GIVENS, Deanne Pandya Primary Care Physician Encounter [facility] Date(s): 03/23/21 - 04/22/21 [facility] [address] [place] [address]- Attending Physician: Admtr, Ar8 Admitting Physician: Admtr, Ar8 Referring Physician: Admtr, [...] Not Given Patient Refuses 1Result Comment: [07/02/2017] [id number] Comment: [07/02/2017] [id number] Medications Ambien 10 mg oral tablet 1 tablet = 10 mg, By Mouth, Daily at bedtime, PRN for sleep, # 30 tablet, 0 Refills, Maintenance, 04/06/21 12:56:00 EST, Tablet, [facility], 04/10/21, 165, cm, 01/28/22 10:25:00 EST, Height, 73, kg, 02/08/20 8:38:00 [...] 02/08/21 16:31:00 EST, Route to Pharmacy Electronically, [facility], 165, cm, 01/12/21 8:46:00 EST, Height, 73, kg, ... Start Date: 02/08/21 Status: Orderedsucralfate 1 gm oral tablet 1 Gm, 1, tablet, By Mouth, 4 times a day, # 40 tablet, Refills 0, Tot. 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
--- OUTSIDE RECORDS SUMMARY | 2021-11-27 20:20 | XMS_ITS | Continuity of Care Document ---
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 cumulative exposure as of 03/10/19 (Discharge Diagnosis) - 04/12/19 Attending Physician: Pop Wing MD Allergies, Adverse [...] Status Refusal Reason Influenza Virus Vaccine (oldterm) 04/12/19 Not Given Patient Refuses 1Result Comment: [07/02/2017] [id number] Comment: [07/02/2017] [id number] Medications Ambien 10 mg oral tablet 1 tablet = 10 mg, By Mouth, Daily at bedtime, PRN for sleep, # 30 tablet, 5 Refills, Maintenance, 03/04/19 16:50:00 EST, Tablet, [facility], 165.1, cm, 01/13/19 13:24:00 EST, Height Start Date: 03/04/19 Status: Ordereddoxycycline hyclate 100 mg oral capsule 1 capsule = 100 mg, By Mouth, 2 times a day, for 14 days, # 28 capsule, 0 Refills, Acute 04/26/19 15:08:00 EST, 04/12/19 15:08:00 EST, Capsule, [facility] # [facility], 165.1, cm, 04/12/19 14:52:00 EST, Height Start Date: 04/12/19 Stop Date: 04/26/19 Status: Orderedescitalopram 20 mg oral tablet 1 tablet = 20 mg, By Mouth, Daily, # 30 tablet, 11 Refills, Maintenance, 03/03/19 17:15:00 EST, Tablet, [facility] # 50, 165.1, [...] 1 Refills, Maintenance, 03/10/19 13:16:00 EST, Ointment, [facility] # 50, 1 application Topically 3 times a day, 165.1, cm, 03/10/19 12:52:00 EST, Height Start Date: 03/10/19 Status: Orderedmethotrexate 2.5 mg oral tablet 6 tablet = 15 mg, By Mouth, Every week, NO REFILLS WITHOUT BLOODWORK, SEEN 03/10 AND ORDERS PLACED, #39 tablet, 5 Refills, Maintenance, 05/20/18 11:40:07 EDT, Tablet, [facility] # [facility] Start Date: 05/20/18 Status: OrderedSoma 350 mg oral tablet 350 mg, 1, tablet, By Mouth, 3 times a day, PRN, # 90 tablet, Refills 5, Tot. 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 Active cumulative exposure as of 03/10/19(Confirmed) Depression, major(Confirmed) Active Neuropathic pain(Confirmed) Active Diagnosis Diagnosis Type Effective Dates Health Clinical Infor mant Status Service Acute bacterial Discharge 04/12/19 sinusitis Diagnosis terminal worker Discharge 04/12/19 methotrexate user - Diagnosis 6800 mg cumulative exposure as of 03/10/19 Vital Signs Most recent to oldest [Reference Range]: 1 Height 165.10 cm (04/12/19 2:52 PM) Weight 74.3 kg (04/12/19 2:52 PM) Oxygen Saturation [94-100 %] 98 % (04/12/19 2:52 PM) Pulse Rate [55-90 bpm] 90 bpm (04/12/19 2:52 PM) Body Mass Index [18.5-24.99] 27.26 *H* (04/12/19 2:52 PM) Blood Pressure [90-138/55-84 mm Hg] 102/60 mm Hg (04/12/19 2:52 PM) Temperature [96.8-100.4 DegF] 98.5 DegF (04/12/19 2:52 PM) Mode of Delivery (Oxygen) Room air (04/12/19 2:52 PM) Blood pressure sites Arm, left (04/12/19 2:52 PM) Temperature Route Oral (04/12/19 2:52 PM) Weight Obtained Via Standing scale (04/12/19 2:52 PM) Social History Social History Type Response Smoking Status Current some day smoker entered on: 07/02/17 Sex
--- OUTSIDE RECORDS SUMMARY | 2021-11-27 20:20 | XMS_ITS | Continuity of Care Document ---
:1975 Author Organization [facility] [place] Adult Address [address] [place] [address]- Care Team Providers Name Role Phone Howard GIVENS, Deanne Pandya Primary Care Physician [place] [facility] [place] 04/05/21 - 05/05/21 [facility] [place] [facility] [address] [place] [address]- Allergies, Adverse Reactions, Alerts Substance Reaction Severity [...] Not Given Patient Refuses 1Result Comment: [07/02/2017] [id number] Comment: [07/02/2017] [id number] Medications Ambien 10 mg oral tablet 1 [...] 3 Refills, Maintenance, 09/19/20 15:24:00 EDT, Tablet, [facility] # [facility], 165, cm, [...] 1 Refills, Maintenance, 03/10/19 13:16:00 EST, Ointment, [facility] # [facility], 1 application Topically 3 times a day, 165.1, cm, 03/10/19 12:52:00 EST, Height Start Date: 03/10/19 Status: Orderedmethotrexate 2.5 mg oral tablet 6 tablet = 15 mg, By Mouth, Every week, # 30 tablet, 5 Refills, Maintenance, 05/04/21 8:40:00 EST, Tablet, [facility] # [facility], 165, cm, 05/02/21 11:10:00 EST, Height, 73, kg, 02/08/20 8:38:00 EST, DryWeight Start Date: 05/04/21 Status: OrderedSoma 350 mg oral tablet 350 mg, 1, tablet, By Mouth, 3 times a day, PRN, # 270 tablet, Refills 1, Tot. 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
--- OUTSIDE RECORDS SUMMARY | 2021-11-27 20:20 | XMS_ITS | Continuity of Care Document ---
:1975 Author Organization [facility] Address Unavailable , Care Team Providers Name Role Phone Howard GIVENS, Deanne Pandya Primary Care Physician [place] [facility] [place] 07/16/21 - 08/15/21 [facility] Allergies, Adverse Reactions, Alerts Substance Reaction [...] Not Given Patient Refuses 1Result Comment: [07/02/2017] [id number] Comment: [07/02/2017] [id number] Medications acetaminophen 325 mg oral tablet 975 mg, 3, tablet, By Mouth, Every 6 hours, # 60 tablet, Refills 0, Tot. Refills 0, Acute 06/12/22 9:12:00 EDT, 06/11/21 9:11:00 EDT, Route to Pharmacy Electronically, [facility], Partialfill upon patient request if the prescription is... Start Date: 06/11/21 Stop Date: 4/19/23 Status: OrderedAmbien 10 mg oral tablet 1 tablet = 10 mg, By Mouth, Daily at bedtime, PRN for sleep, # 30 tablet, 5 Refills, Maintenance, 05/02/21 12:55:00 EST, Tablet, [facility] # [facility], 165, cm, 05/02/21 11:10:00 EST, Height, 73, kg, 02/08/20 8:38:00 EST, Dry Weight Start Date: 05/02/21 Status: Orderedbarium sulfate 2% oral suspension See Instructions, Please dispense 2 (450mL) bottles for total of 900mL, # 2 each, 0 Refills, Maintenance, 07/11/21 13:14:00 EDT, [facility] # 50, Partial fill upon patient request if the prescription is for a schedule II opioid drug., Please dispe... Start Date: 07/11/21 Status: Orderedescitalopram 20 mg oral tablet 1 tablet = 20 mg, By Mouth, Daily, # 90 tablet, 3 Refills, Maintenance, 09/19/20 15:24:00 EDT, Tablet, [facility] # [facility], 165, cm, 09/19/20 [...] 06/11/21 9:11:00 EDT, Route to Pharmacy Electronically, [facility], Partialfill upon patient request [...] 5 Refills, Maintenance, 05/04/21 8:40:00 EST, Tablet, [facility] # [facility], 165, cm, 05/02/21 11:10:00 EST, Height, 73, kg, 02/08/20 8:38:00 EST, DryWeight Start Date: 05/04/21 Status: OrderedPriLOSEC OTC 20 mg oral delayed release tablet 1 tablet = 20 mg, By Mouth, 2 times a day, # 120 tablet, 0 Refills, Maintenance, 07/10/21 15:10:00 EDT, EC Tablet, [facility] # [facility], Partial fill upon patient request if the prescription is for a schedule II opioid drug., 168, cm, 07/10/21 14:45:00... Start Date: 07/10/21 Status: OrderedSoma 350 mg oral tablet 350 mg, 1, tablet, By Mouth, 3 times a day, PRN, # 270 tablet, Refills 1, Tot. 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
--- OUTSIDE RECORDS SUMMARY | 2021-11-27 20:20 | XMS_ITS | Continuity of Care Document ---
:1975 Author Organization [facility] Adult Address [address] [place] [address]- Care Team Providers Name Role Phone Mecca LEONARD, Pop Reveles Primary Care Physician Encounter [facility] Date(s): 06/20/20 - 07/20/20 [facility] [address] [place] [address]- Allergies, Adverse Reactions, Alerts Substance Reaction Severity [...] Not Given Patient Refuses 1Result Comment: [07/02/2017] [id number] Comment: [07/02/2017] [id number] Medications Ambien 10 mg oral tablet 1 tablet = 10 mg, By Mouth, Daily at bedtime, PRN for sleep, # 30 tablet, 0 Refills, Maintenance, 07/14/20 16:09:00 EDT, Tablet, [facility], 165, cm, 03/27/20 12:01:00 EST, Height, 73, kg, 02/08/20 8:38:00 EST, Dry Weight Start Date: 07/14/20 Status: Orderedescitalopram 20 mg oral tablet 1 [...] 5 Refills, Maintenance, 12/08/19 16:14:00 EDT, Tablet, [facility] # [facility], 165.1, cm, 05/03/19 9:16:00 EDT, Height Start Date: 12/08/19 Stop Date: 06/05/20 Status: OrderedMobic 15 mg oral tablet 1 tablet = 15 mg, By Mouth, Daily, # 20 tablet, 0 Refills, Maintenance, 03/27/20 13:06:00 EST, Tablet, [facility] # [facility], Partial fill upon patient request if the prescription is for a schedule II opioid drug., 165, cm, 03/27/20 12:01:00 EST, Height... 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
--- OUTSIDE RECORDS SUMMARY | 2021-11-27 20:20 | XMS_ITS | Continuity of Care Document ---
:1975 Author Organization [facility] Adult Address [address] [place] [address]- Care Team Providers Name Role Phone Howard GIVENS, Deanne Pandya Primary Care Physician [place] [facility] [place]/21 [place] 05/25/21 [facility] [address] [place] [address]- Allergies, Adverse Reactions, Alerts Substance Reaction Severity [...] Not Given Patient Refuses 1Result Comment: [07/02/2017] [id number] Comment: [07/02/2017] [id number] Medications Ambien 10 mg oral tablet 1 [...] 3 Refills, Maintenance, 09/19/20 15:24:00 EDT, Tablet, [facility] [...] 05/02/21 12:55:00 EST, [facility] to Pharmacy Electronically, [facility] Active Insomnia(Confirmed) Active 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) Active alf methotrexate user(Confirmed) 11/24/09 Active Moderate major depression(Confirmed) Active Neuropathic pain(Confirmed) Active Right shoulder pain(Confirmed) Active Social History Social History Type Response Smoking Status Current some day smoker entered on: 07/02/17 Sex Female
--- OUTSIDE RECORDS SUMMARY | 2021-11-27 20:20 | XMS_ITS | Continuity of Care Document ---
:1975 Author Organization [facility] Address [address] [place] [address]- Care Team Providers Name Role Phone Pop Wing MD Primary Care Physician Encounter [facility] [place] Date(s): 02/09/20 - 03/10/20 [facility] [address] [place] [id number] Allergies, Adverse Reactions, Alerts Substance Reaction Severity [...] Not Given Patient Refuses 1Result Comment: [07/02/2017] [id number] Comment: [07/02/2017] [id number] Medications Ambien 10 mg oral tablet 1 [...] 3 Refills, Maintenance, 06/08/19 9:46:00 EDT, Tablet, [id number], 165.1, cm, 05/03/19 9:16:00 EDT, [...] 5 Refills, Maintenance, 12/08/19 16:14:00 EDT, Tablet, [facility], 165.1, cm, 05/03/19 9:16:00 EDT, Height Start Date: 12/08/19 Stop Date: 06/05/20 Status: Orderedomeprazole 40 mg oral enteric coated capsule 1 capsule = 40 mg, By Mouth, 2 times a day, before a meal, # 60 capsule, 1 Refills, Maintenance, 02/01/20 15:13:00 EST, EC Capsule, [facility] # [...] 12/08/19 16:14:00 EDT, Route to Pharmacy Electronically, [facility], 165.1, cm, 05/03/19 9:16:00 EDT, Height Start Date: 12/08/19 Status: Orderedsucralfate 1 gm oral tablet 1 Gm, 1, tablet, By Mouth, 4 times a day, # 40 tablet, Refills 0, Tot. 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
--- OUTSIDE RECORDS SUMMARY | 2021-11-27 20:20 | XMS_ITS | Continuity of Care Document ---
:1975 Author Organization [facility] Address Unavailable , Care Team Providers Name Role Phone Howard GIVENS, Deanne Pandya Primary Care Physician Encounter [facility] Date(s): 08/17/21 - 09/16/21 [facility] Attending Physician: Ke Alston Admitting Physician: Ke Alston Referring Physician: Ke Alston Allergies, Adverse Reactions, Alerts Substance Reaction Severity [...] Not Given Patient Refuses 1Result Comment: [07/02/2017] [id number] Comment: [07/02/2017] [id number] Medications Ambien 10 mg oral tablet 1 [...] 15:35:00 EST, 08/20/21 15:35:00 EDT, [facility], Partial fill upon patient request if the prescription is for a schedule II opioid drug., 168, cm, ... Start Date: 08/20/21 Stop Date: 02/16/22 Status: Orderedescitalopram 20 mg oral tablet 1 tablet = 20 mg, By Mouth, Daily, # 90 tablet, 3 Refills, Maintenance, 08/20/21 15:37:00 EDT, Tablet, [facility], 168, cm, 08/20/21 [...] 15:37:00 EDT, Route to Pharmacy Electronically, [facility], 168, cm, 08/20/21 [...]
--- OUTSIDE RECORDS SUMMARY | 2021-11-27 20:20 | XMS_ITS | Continuity of Care Document ---
:1975 Author Organization [facility] Address [address] [place] [address]- Care Team Providers Name Role Phone Howard GIVENS, Deanne Pandya Primary Care Physician [place] [facility] [id number] Date(s): 05/30/21 - 06/29/21 [facility] [address] [address]- Attending Physician: AdmKe mendez Admitting Physician: Admtr, [...] Not Given Patient Refuses 1Result Comment: [07/02/2017] [id number] Comment: [07/02/2017] [id number] Medications acetaminophen 325 mg oral tablet 975 mg, 3, tablet, By Mouth, Every 6 hours, # 60 tablet, Refills 0, Tot. Refills 0, Acute 06/12/22 9:12:00 EDT, 06/11/21 9:11:00 EDT, Route to Pharmacy Electronically, [facility], Partialfill upon patient request if the prescription is... Start Date: 06/11/21 Stop Date: 06/12/22 Status: OrderedAmbien 10 mg oral tablet 1 tablet = 10 mg, By Mouth, Daily at bedtime, PRN for sleep, # 30 tablet, 5 Refills, Maintenance, 05/02/21 12:55:00 EST, Tablet, [facility], 165, cm, 05/02/21 11:10:00 EST, Height, 73, kg, 02/08/20 8:38:00 EST, Dry Weight Start Date: 05/02/21 Status: Orderedescitalopram 20 mg oral tablet 1 tablet = 20 mg, By Mouth, Daily, # 90 tablet, 3 Refills, Maintenance, 09/19/20 15:24:00 EDT, Tablet, [facility], 165, [...] 06/11/21 9:11:00 EDT, Route to Pharmacy Electronically, [facility], Partialfill upon patient request if the prescription is... Start Date: 06/11/21 Stop Date: 06/12/22 Status: Orderedlidocaine 5% topical ointment 1 application, Topically, 3 times a day, # 50 Gm, 1 Refills, Maintenance, 03/10/19 13:16:00 EST, Ointment, [facility], 1 application Topically 3 times a day, 165.1, cm, 03/10/19 12:52:00 EST, Height Start Date: 03/10/19 Status: Orderedmethotrexate 2.5 mg oral tablet 6 tablet = 15 mg, By Mouth, Every week, # 30 tablet, 5 Refills, Maintenance, 05/04/21 8:40:00 EST, Tablet, [facility], 165, cm, 05/02/21 11:10:00 EST, Height, 73, kg, 02/08/20 8:38:00 EST, DryWeight Start Date: 05/04/21 Status: OrderedoxyCODONE 5 mg oral tablet 5 mg, 1, tablet, By Mouth, Every 6 hours, PRN, # 20 tablet, Refills 0, Tot. Refills 0, Acute 07/18/21 10:59:00 EDT, Pain , Severe, 06/15/21 10:59:00 EDT, Route to Pharmacy Electronically, [facility], Partial fill upon patient request if the p... Start Date: 06/15/21 Stop Date: 07/18/21 Status: OrderedSoma 350 mg oral tablet 350 mg, 1, tablet, By Mouth, 3 times a day, PRN, # 270 tablet, Refills 1, Tot. Refills 1, Maintenance, as needed for pain, 05/02/21 12:55:00 EST, Route to Pharmacy Electronically, [facility] # [facility], 165, cm, 05/02/21 11:10:00 EST, Height, 73, kg, 12... 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
--- OUTSIDE RECORDS SUMMARY | 2021-11-27 20:20 | XMS_ITS | Continuity of Care Document ---
:1975 Author Organization [facility] Address [address] [address]- Care Team Providers Name Role Phone Howard GIVENS, Deanne Pandya Primary Care Physician [place] [facility] [place]s): 07/02/21 - 09/06/21 [facility] [address] [address]- Attending Physician: Dusty Baez MD, Graham Glasgow Admitting Physician: Graham Montano Jr, MD Referring Physician: Howard GIVENS, Deanne Pandya Allergies, Adverse Reactions, Alerts Substance Reaction Severity Status doxycycline hives flush Active morphine nausea Active Cipro hives Active Duloxetine fatigue, word slurring, confusion Active [...] Not Given Patient Refuses 1Result Comment: [07/02/2017] [id number] Comment: [07/02/2017] [id number] Medications Ambien 10 mg oral tablet 1 tablet = 10 mg, By Mouth, Daily at bedtime, PRN for sleep, # 30 tablet, 5 Refills, Maintenance, 08/20/21 15:37:00 EDT, Tablet, [facility], 168, cm, 08/20/21 15:02:00 EDT, Height, 65.3, kg, 06/11/21 6:16:00 EDT, Dry Weight Start Date: 08/20/21 Status: OrderedAtivan 0.5 mg oral tablet 1 tablet = 0.5 mg, By Mouth, Daily, for 30 days, # 12 tablet, 5 Refills, Acute 02/16/22 15:35:00 EST, 08/20/21 15:35:00 EDT, [facility] # [facility], Partial fill upon patient request if the prescription is for a schedule II opioid drug., 168, cm, ... Start Date: 08/20/21 Stop Date: 02/16/22 Status: Orderedescitalopram 20 mg oral tablet 1 tablet = 20 mg, By Mouth, Daily, # 90 tablet, 3 Refills, Maintenance, 08/20/21 15:37:00 EDT, Tablet, [facility], 168, cm, 08/20/21 [...] Maintenance, 05/04/21 8:40:00 EST, Tablet, [facility], 165, cm, 05/02/21 [...] Active 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) Active [facility] methotrexate user(Confirmed) 11/24/09 Active Moderate major depression(Confirmed) Active Neuropathic pain(Confirmed) Active Right shoulder pain(Confirmed) Active Social History Social History Type Response Smoking Status Current some day smoker entered on: 07/02/17 Sex Female
--- OUTSIDE RECORDS SUMMARY | 2021-11-27 20:20 | XMS_ITS | Continuity of Care Document ---
:1975 Author Organization [facility] Address [address] [place] [address]- Care Team Providers Name Role Phone Howard GIVENS, Deanne Pandya Primary Care Physician Encounter [facility] Date(s): 03/26/21 - 04/25/21 [facility] [address] [place] [address]- Allergies, Adverse Reactions, Alerts Substance Reaction Severity [...] Not Given Patient Refuses 1Result Comment: [07/02/2017] [id number] Comment: [07/02/2017] [id number] Medications Ambien 10 mg oral tablet 1 [...] 5 Refills, Maintenance, 08/09/20 15:25:00 EDT, Tablet, [facility] [...] 02/08/21 16:31:00 EST, Route to Pharmacy Electronically, [facility], 165, cm, 01/12/21 8:46:00 EST, Height, 73, kg, ... Start Date: 02/08/21 Status: Orderedsucralfate 1 gm oral tablet 1 Gm, 1, tablet, By Mouth, 4 times a day, # 40 tablet, Refills 0, Tot. Refills 0, Maintenance, 02/01/20 15:13:00 EST, Route to Pharmacy Electronically, [facility], Partial fill upon [...] Active Insomnia(Confirmed) Active 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) Active half-way methotrexate user(Confirmed) 11/24/09 Active Moderate major depression(Confirmed) Active Neuropathic pain(Confirmed) Active Right shoulder pain(Confirmed) Active Social History Social History Type Response Smoking Status Current some day smoker entered on: 07/02/17 Sex Female
--- OUTSIDE RECORDS SUMMARY | 2021-11-27 20:21 | XMS_ITS | Continuity of Care Document ---
:1975 Author Organization [facility] Adult Address [address] [place] [address]- Care Team Providers Name Role Phone Howard GIVENS, Deanne Pandya Primary Care Physician Encounter [facility] [place] Date(s): 08/20/21 - 08/27/21 [facility] [address] [place] [address]- Encounter Diagnosis PLEVA (pityriasis lichenoides et varioliformis acuta) - on MTX (Discharge Diagnosis) - 08/20/21 Moderate major depression (Discharge Diagnosis) - 08/20/21 Anxiety (Discharge Diagnosis) - 08/20/21 Chronic abdominal pain (Discharge Diagnosis) - 08/20/21 Dizziness (Discharge Diagnosis) - 08/20/21 Attending Physician: Deanne Lawrence NP Referring Physician: Gunner Morfin MD Allergies, Adverse Reactions, [...] Not Given Patient Refuses 1Result Comment: [07/02/2017] [id number] Comment: [07/02/2017] [id number] Medications Ambien 10 mg oral tablet 1 tablet = 10 mg, By Mouth, Daily at bedtime, PRN for sleep, # 30 tablet, 5 Refills, Maintenance, 08/20/21 15:37:00 EDT, Tablet, [facility], 168, cm, 08/20/21 15:02:00 EDT, Height, 65.3, kg, 06/11/21 6:16:00 EDT, Dry Weight Start Date: 08/20/21 Status: OrderedAtivan 0.5 mg oral tablet 1 tablet = 0.5 mg, By Mouth, Daily, for 30 days, # 12 tablet, 5 Refills, Acute 02/16/22 15:35:00 EST, 08/20/21 15:35:00 EDT, [facility] # [facility], Partial fill upon patient request if the prescription is for a schedule II opioid drug., 168, cm, ... Start Date: 08/20/21 Stop Date: 02/16/22 Status: Orderedescitalopram 20 mg oral tablet 1 tablet = 20 mg, By Mouth, Daily, # 90 tablet, 3 Refills, Maintenance, 08/20/21 15:37:00 EDT, Tablet, [facility], 168, cm, 08/20/21 [...] 5 Refills, Maintenance, 05/04/21 8:40:00 EST, Tablet, [facility], 165, cm, 05/02/21 11:10:00 EST, Height, 73, kg, 02/08/20 8:38:00 EST, DryWeight Start Date: 05/04/21 Status: OrderedSoma 350 mg oral tablet 350 mg, 1, tablet, By Mouth, 3 times a day, PRN, # 270 tablet, Refills 1, Tot. Refills 1, Maintenance, as needed for pain, 08/20/21 15:37:00 EDT, Route to Pharmacy Electronically, [facility], 168, cm, 08/20/21 15:02:00 EDT, Height, 65.3, kg,... 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 Moderate major depression(Confirmed) Active Neuropathic pain(Confirmed) Active Right shoulder pain(Confirmed) Active Diagnosis Diagnosis Type Effective Dates Health Clinical Infor mant Status Service PLEVA (pityriasis Discharge 08/20/21 lichenoides et Diagnosis varioliformis acuta) - on MTX Moderate major Discharge 08/20/21 depression Diagnosis Anxiety Discharge 08/20/21 Diagnosis Chronic abdominal Discharge 08/20/21 pain Diagnosis Dizziness Discharge 08/20/21 Diagnosis Vital Signs Most recent to oldest [Reference Range]: 1 Height 168 cm (08/20/21 3:02 PM) Weight 65.4 kg (08/20/21 3:02 PM) Oxygen Saturation [94-100 %] 98 % (08/20/21 3:02 PM) Pulse Rate [55-90 bpm] 82 bpm (08/20/21 3:02 PM) Body Mass Index [18.5-24.99] 23.17 (08/20/21 3:02 PM) Blood Pressure [90-138/55-84 mm Hg] 89/52 mm Hg *L* (08/20/21 3:02 PM) Temperature [96.8-100.4 DegF] 97.8 DegF (08/20/21 3:02 PM) Blood pressure sites Arm, right (08/20/21 3:02 PM) Temperature Route Temporal (08/20/21 3:02 PM) Weight Obtained Via Standing scale (08/20/21 3:02 PM) Social History Social History Type Response Smoking Status Current some day smoker entered on: 07/02/17 Sex Female
--- OUTSIDE RECORDS SUMMARY | 2021-11-27 20:21 | XMS_ITS | Continuity of Care Document ---
:1975 Author Organization [facility] Adult Address [address] [place] [address]- Care Team Providers Name Role Phone Mecca LEONARD, Pop Reveles Primary Care Physician [place] [facility] [place] 11/18/19 - 12/18/19 [facility] Adult [address] [place] [address]- [facility] Allergies, Adverse Reactions, Alerts Substance Reaction [...] Not Given Patient Refuses 1Result Comment: [07/02/2017] [id number] Comment: [07/02/2017] [id number] Medications Ambien 10 mg oral tablet 1 [...] 3 Refills, Maintenance, 06/08/19 9:46:00 EDT, Tablet, [facility]/pharmacy #[id number], 165.1, cm, 05/03/19 9:16:00 EDT, [...] Maintenance, 12/08/19 16:14:00 EDT, Tablet, [facility] # [facility], 165.1, cm, 05/03/19 9:16:00 EDT, Height Start Date: 12/08/19 Stop Date: 06/05/20 Status: OrderedSoma 350 mg oral tablet 350 mg, 1, tablet, By Mouth, 3 times a day, PRN, # 90 tablet, Refills 5, Tot. 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
--- OUTSIDE RECORDS SUMMARY | 2021-11-27 20:21 | XMS_ITS | Continuity of Care Document ---
:1975 Author Organization [facility] Adult Address [address] [place] [address]- Care Team Providers Name Role Phone Pop Wing MD Primary Care Physician [place] [facility] [place]12[place] - 04/22/19 [facility] Adult [address] [place] [address]- [facility] Attending Physician: AdmKe mendez Admitting Physician: Admtr, [...] Not Given Patient Refuses 1Result Comment: [07/02/2017] [id number] Comment: [07/02/2017] [id number] Medications Ambien 10 mg oral tablet 1 [...] 04/26/19 15:08:00 EST, 04/12/19 15:08:00 EST, Capsule, [facility] # [facility], 165.1, cm, 04/12/19 14:52:00 EST, Height Start Date: 04/12/19 Stop Date: 04/26/19 Status: Orderedescitalopram 20 mg oral tablet 1 tablet = 20 mg, By Mouth, Daily, # 30 tablet, 11 Refills, Maintenance, 03/03/19 17:15:00 EST, Tablet, [facility] # [facility], 165.1, [...] 1 Refills, Maintenance, 03/10/19 13:16:00 EST, Ointment, [facility] # [facility], 1 application Topically 3 times a day, 165.1, cm, 03/10/19 12:52:00 EST, Height Start Date: 03/10/19 Status: Orderedmethotrexate 2.5 mg oral tablet 6 tablet = 15 mg, By Mouth, Every week, NO REFILLS WITHOUT BLOODWORK, SEEN 03/10 AND ORDERS PLACED, #39 tablet, 5 Refills, Maintenance, 05/20/18 11:40:07 EDT, Tablet, [facility] # 50 Start Date: 05/20/18 Status: OrderedSoma 350 mg oral tablet 350 mg, 1, tablet, By Mouth, 3 times a day, PRN, # 90 tablet, Refills 5, Tot. Refills 5, Maintenance, as needed for pain, 03/04/19 16:50:00 EST, Route to Pharmacy Electronically, [facility] # [facility], 165.1, [...] Active Insomnia(Confirmed) Active 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) Active residential methotrexate user - 6800 mg 11/24/09 Active [...]
--- OUTSIDE RECORDS SUMMARY | 2021-11-27 20:21 | XMS_ITS | Continuity of Care Document ---
:1975 Author Organization [facility] Address [address] [place] [address]- Care Team Providers Name Role Phone Howard GIVENS, Deanne Pandya Primary Care Physician Encounter [facility] [place] Date(s): 08/22/21 - 10/31/21 [place] [id number] [address]- Attending Physician: Dusty Baez MD, [place] [...] Not Given Patient Refuses 1Result Comment: [07/02/2017] [id number] Comment: [07/02/2017] [id number] Medications Ambien 10 mg oral tablet 1 tablet = 10 mg, By Mouth, Daily at bedtime, PRN for sleep, # 30 tablet, 5 Refills, Maintenance, 08/20/21 15:37:00 EDT, Tablet, [facility] # 50, 168, cm, 08/20/21 15:02:00 EDT, Height, 65.3, kg, 06/11/21 6:16:00 EDT, Dry Weight Start Date: 08/20/21 Status: OrderedAtivan 0.5 mg oral tablet 1 tablet = 0.5 mg, By Mouth, Daily, for 30 days, # 12 tablet, 5 Refills, Acute 02/16/22 15:35:00 EST, 08/20/21 15:35:00 EDT, [facility] # 50, Partial fill upon patient request if the prescription is for a schedule II opioid drug., 168, cm, ... Start Date: 08/20/21 Stop Date: 02/16/22 Status: Orderedescitalopram 20 mg oral tablet 1 tablet = 20 mg, By Mouth, Daily, # 90 tablet, 3 Refills, Maintenance, 08/20/21 15:37:00 EDT, Tablet, [facility] # 50, 168, [...] Maintenance, 05/04/21 8:40:00 EST, Tablet, [facility] # 50, 165, cm, 05/02/21 11:10:00 EST, Height, 73, kg, 02/08/20 8:38:00 EST, DryWeight Start Date: 05/04/21 Status: Orderedmidodrine 2.5 mg oral tablet .5, By Mouth, 2 times a day, # 60 each, Refills 0, Tot. 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
--- OUTSIDE RECORDS SUMMARY | 2021-11-27 20:21 | XMS_ITS | Continuity of Care Document ---
:1975 Author Organization [facility] Adult Address [address] [place] [address]- Care Team Providers Name Role Phone Pop Wing MD Primary Care Physician Encounter [facility] [place] Date(s): 05/20/19 - 05/27/19 [facility] Adult [address] [place] [address]- [facility] Encounter Diagnosis Acute sinusitis (Discharge Diagnosis) - 05/20/19 Attending Physician: Pop Wing MD Allergies, Adverse [...] Not Given Patient Refuses 1Result Comment: [07/02/2017] [id number] Comment: [07/02/2017] [id number] Medications Ambien 10 mg oral tablet 1 [...] 11 Refills, Maintenance, 03/03/19 17:15:00 EST, Tablet, [facility] # 50, 165.1, cm, 01/13/19 [...] 5 Refills, Maintenance, 05/17/19 11:13:00 EDT, Tablet, [facility] # 50, 165.1, cm, 05/03/19 9:16:00 EDT, Height Start Date: 05/17/19 Status: OrderedSoma 350 mg oral tablet 350 mg, 1, tablet, By Mouth, 3 times a day, PRN, # 90 tablet, Refills 5, Tot. Refills 5, Maintenance, as needed for pain, 03/04/19 16:50:00 EST, Route to Pharmacy Electronically, [facility] # 50, 165.1, cm, 01/13/19 [...] Active Insomnia(Confirmed) Active 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) Active snf methotrexate user - 6800 mg 11/24/09 Active cumulative exposure as of 03/10/19(Confirmed) Depression, major(Confirmed) Active Neuropathic pain(Confirmed) Active Diagnosis Diagnosis Type Effective Dates Health Status Clinical In formant Service Acute sinusitis Discharge 05/20/19 Diagnosis Social History Social History Type Response Smoking Status Current some day smoker entered on: 07/02/17 Sex
--- OUTSIDE RECORDS SUMMARY | 2021-11-27 20:21 | XMS_ITS | Continuity of Care Document ---
:1975 Author Organization [facility] Adult Address [address] [place] [address]- Care Team Providers Name Role Phone Mecca LEONARD, Pop Reveles Primary Care Physician Encounter [facility] Date(s): 10/04/20 - 11/03/20 [facility] Adult [address] [place] [address]- Allergies, Adverse Reactions, Alerts Substance Reaction Severity [...] Not Given Patient Refuses 1Result Comment: [07/02/2017] [id number] Comment: [07/02/2017] [id number] Medications Ambien 10 mg oral tablet 1 [...] 09/19/20 15:24:00 EDT, Tablet, [facility] # [facility], 165, cm, 09/19/20 [...] 1 Refills, Maintenance, 03/10/19 13:16:00 EST, Ointment, [facility] # 50, 1 application Topically 3 times a day, 165.1, cm, 03/10/19 12:52:00 EST, Height Start Date: 03/10/19 Status: Orderedmethotrexate 2.5 mg oral tablet 6 tablet = 15 mg, By Mouth, Every week, # 30 tablet, 5 Refills, Maintenance, 08/09/20 15:25:00 EDT, Tablet, [facility] # 50, 165, cm, 03/27/20 12:01:00 EST, Height, 73, kg, 02/08/20 8:38:00 EST, Dry Weight Start Date: 08/09/20 Status: Orderedomeprazole 40 mg oral enteric coated capsule 1 capsule = 40 mg, By Mouth, 2 times a day, before a meal, # 60 capsule, 1 Refills, Maintenance, 02/01/20 15:13:00 EST, EC Capsule, [facility] # 50, Partial fill upon patient request if the prescription is for a schedule II opioid drug., 165.1, cm... Start Date: 02/01/20 Status: OrderedSoma 350 mg oral tablet 350 mg, 1, tablet, By Mouth, 3 times a day, PRN, # 270 tablet, Refills 0, Tot. Refills 0, Maintenance, as needed for pain, 09/19/20 15:23:00 EDT, Route to Pharmacy Electronically, [facility] # 50, 165, cm, 09/19/20 14:43:00 EDT, Height, 73, kg, 12... Start Date: 09/19/20 Status: Orderedsucralfate 1 gm oral tablet 1 Gm, 1, tablet, By Mouth, 4 times a day, # 40 tablet, Refills 0, Tot. 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
--- OUTSIDE RECORDS SUMMARY | 2021-11-27 20:21 | XMS_ITS | Continuity of Care Document ---
:1975 Author Organization [facility] Adult Address [address] [place] [address]- Care Team Providers Name Role Phone Pop Wing MD Primary Care Physician Encounter [facility] Date(s): 02/01/20 - 03/02/20 [facility] Adult [address] [place] [address]- Attending Physician: Admtr, Ke Admitting Physician: AdmtrKe Referring Physician: Admtr, Ar8 Allergies, Adverse Reactions, Alerts Substance Reaction Severity Status morphine nausea Active Bactrim hives Active [place] burning in throat blisters in mouth Active penicillins hives high fever vomiting Active sulfa drugs hives Active Ciprofloxacin allergy blisters Cipro hives Active Benadryl restless leg syndrone [...] Not Given Patient Refuses 1Result Comment: [07/02/2017] [id number] Comment: [07/02/2017] [id number] Medications Ambien 10 mg oral tablet 1 [...] 3 Refills, Maintenance, 06/08/19 9:46:00 EDT, Tablet, [facility]/pharmacy #[id number], 165.1, cm, 05/03/19 9:16:00 EDT, [...] Refills, Maintenance, 12/08/19 16:14:00 EDT, Tablet, [facility] # 50, 165.1, [...] 16:14:00 EDT, Route to Pharmacy Electronically, [facility] # 50, 165.1, [...] disease(Confirmed) Active [facility]PC methotrexate user(Confirmed) 11/24/09 Active Depression, major(Confirmed) Active Neuropathic pain(Confirmed) Active Vital [...]
--- OUTSIDE RECORDS SUMMARY | 2021-11-27 20:21 | XMS_ITS | Continuity of Care Document ---
:1975 Author Organization [facility] Address [address] [place] [address]- Care Team Providers Name Role Phone Howard GIVENS, Deanne Pandya Primary Care Physician [place] [facility] [place](s): 10/02/21 - 11/09/[address] [address]- Attending Physician: Jag GIVENS, Sara Admitting Physician: Jag GIVENS, Sara Referring Physician: Jag GIVENS, Sara Allergies, Adverse Reactions, Alerts Substance Reaction Severity [...] Not Given Patient Refuses 1Result Comment: [07/02/2017] [id number] Comment: [07/02/2017] [id number] Medications Ambien 10 mg oral tablet 1 [...] Acute 02/16/22 15:35:00 EST, 08/20/21 15:35:00 EDT, [facility] # [facility], Partial fill upon patient request if the prescription is for a schedule II opioid drug., 168, cm, ... 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
--- OUTSIDE RECORDS SUMMARY | 2021-11-27 20:21 | XMS_ITS | Continuity of Care Document ---
:1975 Author Organization [facility] Address [address] [place] [address]- Care Team Providers Name Role Phone Pop Wing MD Primary Care Physician Encounter [facility] Date(s): 04/12/19 - 04/12/[address] [address]- [facility] Attending Physician: Pop Wing MD Allergies, Adverse [...] Not Given Patient Refuses 1Result Comment: [07/02/2017] [id number] Comment: [07/02/2017] [id number] Medications Ambien 10 mg oral tablet 1 [...] 04/26/19 15:08:00 EST, 04/12/19 15:08:00 EST, Capsule, [facility] # 50, 165.1, cm, 04/12/19 14:52:00 EST, Height Start Date: 04/12/19 Stop Date: 04/26/19 Status: Orderedescitalopram 20 mg oral tablet 1 tablet = 20 mg, By Mouth, Daily, # 30 tablet, 11 Refills, Maintenance, 03/03/19 17:15:00 EST, Tablet, [facility] # 50, 165.1, cm, 01/13/19 [...] 5 Refills, Maintenance, 05/20/18 11:40:07 EDT, Tablet, [facility] # 50 Start Date: 05/20/18 Status: OrderedSoma 350 mg oral tablet 350 mg, 1, tablet, By Mouth, 3 times a day, PRN, # 90 tablet, Refills 5, Tot. 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
--- OUTSIDE RECORDS SUMMARY | 2021-11-27 20:21 | XMS_ITS | Continuity of Care Document ---
:1975 Author Organization [facility] Address [address] [address]- Care Team Providers Name Role Phone Howard GIVENS, Deanne Pandya Primary Care Physician Encounter [facility] Date(s): 06/07/21 - 07/07/21 [facility] [address] [address] [place] Allergies, Adverse Reactions, Alerts Substance Reaction Severity [...] Not Given Patient Refuses 1Result Comment: [07/02/2017] [id number] Comment: [07/02/2017] [id number] Medications acetaminophen 325 mg oral tablet 975 mg, 3, tablet, By Mouth, Every 6 hours, # 60 tablet, Refills 0, Tot. Refills 0, Acute 06/12/22 9:12:00 EDT, 06/11/21 9:11:00 EDT, Route to Pharmacy Electronically, [facility], Partialfill upon patient request if the prescription is... Start Date: 06/11/21 Stop Date: 06/12/22 Status: OrderedAmbien 10 mg oral tablet 1 tablet = 10 mg, By Mouth, Daily at bedtime, PRN for sleep, # 30 tablet, 5 Refills, Maintenance, 05/02/21 12:55:00 EST, Tablet, [facility], 165, cm, 05/02/21 11:10:00 EST, Height, 73, kg, 02/08/20 8:38:00 EST, Dry Weight Start Date: 05/02/21 Status: Orderedescitalopram 20 mg oral tablet 1 tablet = 20 mg, By Mouth, Daily, # 90 tablet, 3 Refills, Maintenance, 09/19/20 15:24:00 EDT, Tablet, [facility] # 50, 165, cm, 09/19/20 [...] 06/11/21 9:11:00 EDT, Route to Pharmacy Electronically, [facility], Partialfill upon patient request if the prescription is... Start Date: 06/11/21 Stop Date: 06/12/22 Status: Orderedlidocaine 5% topical ointment 1 application, Topically, 3 times a day, # 50 Gm, 1 Refills, Maintenance, 03/10/19 13:16:00 EST, Ointment, [facility] # 50, 1 application Topically 3 times a day, 165.1, cm, 03/10/19 12:52:00 EST, Height Start Date: 03/10/19 Status: Orderedmethotrexate 2.5 mg oral tablet 6 tablet = 15 mg, By Mouth, Every week, # 30 tablet, 5 Refills, Maintenance, 05/04/21 8:40:00 EST, Tablet, [facility] # 50, 165, cm, 05/02/21 11:10:00 EST, Height, 73, kg, 02/08/20 8:38:00 EST, DryWeight Start Date: 05/04/21 Status: OrderedoxyCODONE 5 mg oral tablet 5 mg, 1, tablet, By Mouth, Every 6 hours, PRN, # 20 tablet, Refills 0, Tot. Refills 0, Acute 07/18/21 10:59:00 EDT, Pain , Severe, 06/15/21 10:59:00 EDT, Route to Pharmacy Electronically, [facility] # 50, Partial fill upon patient request if the p... Start Date: 06/15/21 Stop Date: 07/18/21 Status: OrderedSoma 350 mg oral tablet 350 mg, 1, tablet, By Mouth, 3 times a day, PRN, # 270 tablet, Refills 1, Tot. Refills 1, Maintenance, as needed for pain, 05/02/21 12:55:00 EST, Route to Pharmacy Electronically, [facility] # [facility], 165, cm, 05/02/21 11:10:00 [...] Insomnia(Confirmed) Active 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) Active intermediate methotrexate user(Confirmed) 11/24/09 Active Moderate major depression(Confirmed) Active Neuropathic pain(Confirmed) Active Right shoulder pain(Confirmed) Active Social History Social History Type Response Smoking Status Current some day smoker entered on: 07/02/17 Sex Female
--- OUTSIDE RECORDS SUMMARY | 2021-11-27 20:21 | XMS_ITS | Continuity of Care Document ---
:1975 Author Organization [facility] Adult Address [address] [place] [address]- Care Team Providers Name Role Phone Howard GIVENS, Deanne Pandya Primary Care Physician Encounter [place] Date(s): 03/23/21 - 04/22/21 [facility] Adult [address] [place] [address]- Allergies, Adverse Reactions, Alerts Substance Reaction Severity [...] Not Given Patient Refuses 1Result Comment: [07/02/2017] [id number] Comment: [07/02/2017] [id number] Medications Ambien 10 mg oral tablet 1 [...] 3 Refills, Maintenance, 09/19/20 15:24:00 EDT, Tablet, [facility] # [facility], 165, cm, [...] 1 Refills, Maintenance, 03/10/19 13:16:00 EST, Ointment, [facility] # [facility], 1 application Topically 3 times a day, 165.1, cm, 03/10/19 12:52:00 EST, Height Start Date: 03/10/19 Status: Orderedmethotrexate 2.5 mg oral tablet 6 tablet = 15 mg, By Mouth, Every week, # 30 tablet, 5 Refills, Maintenance, 08/09/20 15:25:00 EDT, Tablet, [facility] # [facility], 165, cm, 03/27/20 12:01:00 EST, Height, 73, kg, 02/08/20 8:38:00 EST, Dry Weight Start Date: 08/09/20 Status: Orderedomeprazole 40 mg oral enteric coated capsule 1 capsule = 40 mg, By Mouth, 2 times a day, before a meal, # 60 capsule, 1 Refills, Maintenance, 02/01/20 15:13:00 EST, EC Capsule, [facility] # [facility], Partial fill upon patient request if the prescription is for a schedule II opioid drug., 165.1, cm... Start Date: 02/01/20 Status: OrderedSoma 350 mg oral tablet 350 mg, 1, tablet, By Mouth, 3 times a day, PRN, # 270 tablet, Refills 0, Tot. Refills 0, Maintenance, as needed for pain, 02/08/21 16:31:00 EST, Route to Pharmacy Electronically, [facility], 165, cm, 01/12/21 8:46:00 EST, Height, 73, kg, ... Start Date: 02/08/21 Status: Orderedsucralfate 1 gm oral tablet 1 Gm, 1, tablet, By Mouth, 4 times a day, # 40 tablet, Refills 0, Tot. 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
--- OUTSIDE RECORDS SUMMARY | 2021-11-27 20:21 | XMS_ITS | Continuity of Care Document ---
:1975 Author Organization [facility] Address Unavailable , Care Team Providers Name Role Phone Howard GIVENS, Deanne Pandya Primary Care Physician Encounter [facility] [place] [facility] R [id number] Date(s): 06/05/21 - 08/10/21 [facility] Attending Physician: Munir Corral Referring Physician: Deanne [...] Not Given Patient Refuses 1Result Comment: [07/02/2017] [id number] Comment: [07/02/2017] [id number] Medications acetaminophen 325 mg oral tablet 975 mg, 3, tablet, By Mouth, Every 6 hours, # 60 tablet, Refills 0, Tot. Refills 0, Acute 06/12/22 9:12:00 EDT, 06/11/21 9:11:00 EDT, Route to Pharmacy Electronically, [facility], Partialfill upon patient request if the prescription is... Start Date: 06/11/21 Stop Date: 06/12/22 Status: OrderedAmbien 10 mg oral tablet 1 tablet = 10 mg, By Mouth, Daily at bedtime, PRN for sleep, # 30 tablet, 5 Refills, Maintenance, 05/02/21 12:55:00 EST, Tablet, [facility] # [facility], 165, cm, 05/02/21 11:10:00 EST, Height, 73, kg, 02/08/20 8:38:00 EST, Dry Weight Start Date: 05/02/21 Status: Orderedbarium sulfate 2% oral suspension See Instructions, Please dispense 2 (450mL) bottles for total of 900mL, # 2 each, 0 Refills, Maintenance, 07/11/21 13:14:00 EDT, [facility] # [...] 06/11/21 9:11:00 EDT, Route to Pharmacy Electronically, [facility], Partialfill upon patient request if [...] Maintenance, 07/10/21 15:10:00 EDT, EC Tablet, [facility] # [...] 12:55:00 EST, [facility] to Pharm[facility] Electronically, [facility] [...] Active Insomnia(Confirmed) Active 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) Active 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
--- OUTSIDE RECORDS SUMMARY | 2021-11-27 20:21 | XMS_ITS | Continuity of Care Document ---
:1975 Demographics Address [address] [place] [id number] Mobile Email Address .Active Implants Preferred Language so Marital Status Single Judaism Affiliation None Race Unknown Ethnic Group Not or Author Organization [facility] Address [address] [place] [address]- Care Team Providers Name Role Phone Pop Wing MD Primary Care Physician En[place] [facility] [place] Date(s): 02/04/20 - 03/05/[address] [facility] [address] [place] [address] Attending Physician: Admandrea, Ke Admitting Physician: Admtr, Ar8 Referring Physician: [...] Not Given Patient Refuses 1Result Comment: [07/02/2017] [id number] Comment: [07/02/2017] [id number] Medications Ambien 10 mg oral tablet 1 [...] 3 Refills, Maintenance, 06/08/19 9:46:00 EDT, Tablet, [facility] #[id number], 165.1, cm, 05/03/19 9:16:00 [...] 02/01/20 15:13:00 EST, Route to Pharmacy Electronically, [facility] # [facility], Partial fill upon patient [...]
--- OUTSIDE RECORDS SUMMARY | 2021-11-27 20:21 | XMS_ITS | Continuity of Care Document ---
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
--- OUTSIDE RECORDS SUMMARY | 2021-11-27 20:21 | XMS_ITS | Continuity of Care Document ---
:1975 Author Organization [facility] Address [address] [place] [address]- Care Team Providers Name Role Phone Howard GIVENS, Deanne Pandya Primary Care Physician [place] [facility] [place] 06/11/21 - 06/11/[address] [address] Discharge Disposition: A-D/C Home Attending Physician: Abad Dupree MD Admitting Physician: [...] Not Given Patient Refuses 1Result Comment: [07/02/2017] [id number] Comment: [07/02/2017] [id number] Medications acetaminophen 325 mg oral tablet 975 mg, 3, tablet, By Mouth, Every 6 hours, # 60 tablet, Refills 0, Tot. Refills 0, Acute 06/12/22 9:12:00 EDT, 06/11/21 9:11:00 EDT, Route to Pharmacy Electronically, [facility], Partialfill upon patient request if the prescription is... Start Date: 06/11/21 Stop Date: 06/12/22 Status: OrderedAmbien 10 mg oral tablet 1 tablet = 10 mg, By Mouth, Daily at bedtime, PRN for sleep, # 30 tablet, 5 Refills, Maintenance, 05/02/21 12:55:00 EST, Tablet, [facility], 165, cm, 05/02/21 11:10:00 EST, Height, 73, kg, 02/08/20 8:38:00 EST, Dry Weight Start Date: 05/02/21 Status: Orderedescitalopram 20 mg oral tablet 1 tablet = 20 mg, By Mouth, Daily, # 90 tablet, 3 Refills, Maintenance, 09/19/20 15:24:00 EDT, Tablet, [facility] # [facility], [...] 06/11/21 9:11:00 EDT, Route to Pharmacy Electronically, [facility], Partialfill upon patient request if the prescription is... Start Date: 06/11/21 Stop Date: 06/12/22 Status: Orderedlidocaine 5% topical ointment 1 application, Topically, 3 times a day, # 50 Gm, 1 Refills, Maintenance, 03/10/19 13:16:00 EST, Ointment, [facility] # [facility], 1 application Topically 3 times a day, 165.1, cm, 03/10/19 12:52:00 EST, Height Start Date: 03/10/19 Status: Orderedmethotrexate 2.5 mg oral tablet 6 tablet = 15 mg, By Mouth, Every week, # 30 tablet, 5 Refills, Maintenance, 05/04/21 8:40:00 EST, Tablet, [facility] # [facility], 165, cm, 05/02/21 11:10:00 EST, Height, 73, kg, 02/08/20 8:38:00 EST, DryWeight Start Date: 05/04/21 Status: OrderedoxyCODONE 5 mg oral tablet 5 mg, Tablet, By Mouth, Every 4 hours for 7 days, Hold for: SBP < 90, HR < 60, RR < 8, PRN for Pain , Severe, Routine, 06/11/21 8:19:00 EDT, Stop date 06/18/21 8:18:00 EDT Start Date: 06/11/21 Stop Date: 06/11/21 Status: DiscontinuedoxyCODONE 5 mg oral tablet 5 mg, 1, tablet, By Mouth, Every 4 hours, PRN, # 20 tablet, Refills 0, Tot. Refills 0, Acute 06/12/22 9:11:00 EDT, Pain , Severe, 06/11/21 9:11:00 EDT, Route to Pharmacy Electronically, [facility], Partial fill upon patient request if th... Start Date: 06/11/21 Stop Date: 06/12/22 Status: OrderedSoma 350 mg oral tablet 350 mg, 1, tablet, By Mouth, 3 times a day, PRN, # 270 tablet, Refills 1, Tot. Refills 1, Maintenance, as needed for pain, 05/02/21 12:55:00 EST, Route to Pharmacy Electronically, [facility], 165, cm, 05/02/21 11:10:00 EST, Height, 73, kg, 12... 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) Bacterial vaginosis - Active recurrent(Confirmed) Right carotid bruit(Confirmed) Active Chronic abdominal pain(Confirmed) Active Chronic pain syndrome(Confirmed) Active Adenomyosis(Confirmed) Active Fibromyalgia(Confirmed) Active Insomnia(Confirmed) Active 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) Active USP methotrexate user(Confirmed) 11/24/09 Active Moderate major depression(Confirmed) Active Neuropathic pain(Confirmed) Active Right shoulder pain(Confirmed) Active Vital Signs Most recent to oldest 1 2 3 [Reference Range]: Height 168 cm 168 cm (06/11/21 6:03 AM) (06/07/21 9:14 AM) Weight 65.3 kg 65.45 kg (06/11/21 6:03 AM) (06/07/21 9:14 AM) Oxygen Saturation [94-100 97 % 95 % 98 % %] (06/11/21 10:45 AM) (06/11/21 10:15 AM) (06/11/21 1 0:00 AM) Pulse Rate [55-90 bpm] 61 bpm 61 bpm 64 bpm (06/11/21 7:30 AM) (06/11/21 7:25 AM) (06/11/21 6:3 5 AM) Body Mass Index 23.14 23.19 [18.5-24.99] (06/11/21 6:03 AM) (06/07/21 9:14 AM) Blood Pressure 92/55 mm Hg 86/43 mm Hg 98/42 mm Hg [90-138/55-84 mm Hg] (06/11/21 11:30 AM) *L* (06/11/21 10:15 AM) (06/11/21 10:45 AM) Respiratory Rate [16-30 16 br/min 16 br/min 11 br/mi n br/min] (06/11/21 11:35 AM) (06/11/21 10:45 AM) *L* (06/11/21 10:15 A M) Temperature [96.8-100.4 97.1 DegF 96.9 DegF 98.2 Deg F DegF] (06/11/21 10:00 AM) (06/11/21 9:15 AM) (06/11/21 6: 03 AM) Liters per Minute 4 L/min (06/11/21 9:15 AM) Mode of Delivery (Oxygen) Room air Room air Room a ir (06/11/21 11:45 AM) (06/11/21 10:45 AM) (06/11/21 1 0:00 AM) Blood pressure sites Arm, left Arm, left Arm, right (06/11/21 11:30 AM) (06/11/21 10:45 AM) (06/11/21 1 0:00 AM) Temperature Route Temporal Temporal Temporal (06/11/21 10:00 AM) (06/11/21 9:15 AM) (06/11/21 6: 03 AM) Dry Weight 65.3 kg 65.45 kg (06/11/21 6:03 AM) (06/07/21 9:14 AM) Weight Obtained Via Standing scale Patient/family stated (06/11/21 6:03 AM) (06/07/21 9:14 AM) Dry Weight Obtained Via Standing scale Patient/family stated (06/11/21 6:03 AM) (06/07/21 9:14 AM) Social History Social History Type Response Smoking Status Current some day smoker entered on: 07/02/17 Sex Female
--- OUTSIDE RECORDS SUMMARY | 2021-11-27 20:21 | XMS_ITS | Continuity of Care Document ---
:1975 Author Organization [facility] [place] Address [address] [place] [address]- Care Team Providers Name Role Phone Howard GIVENS, Deanne Pandya Primary Care Physician Encounter 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
--- OUTSIDE RECORDS SUMMARY | 2021-11-27 20:21 | XMS_ITS | Continuity of Care Document ---
:1975 Author Organization [facility] Address [address] [place] [address]- Care Team Providers Name Role Phone Pop Wing MD Primary Care Physician Encounter [facility] [place] Date(s): 02/21/21 - 02/28/21 [facility] [address] [place] [address]- Encounter Diagnosis Fibromyalgia (Discharge Diagnosis) - 02/21/21 Post-COVID syndrome (Discharge Diagnosis) - 02/21/21 Fatigue (Discharge Diagnosis) - 02/21/21 Attending Physician: Pop Wing MD Allergies, Adverse [...] Not Given Patient Refuses 1Result Comment: [07/02/2017] [id number] Comment: [07/02/2017] [id number] Medications Ambien 10 mg oral tablet 1 tablet = 10 mg, By Mouth, Daily at bedtime, PRN for sleep, # 90 tablet, 0 Refills, Maintenance, 11/23/20 17:09:00 EDT, Tablet, [facility], [place] TO FILL EARLY PATIENT LOST PREVIOUS SCRIPT, 165,cm, 09/19/20 14:43:00 EDT, Height, 73, kg, ... Start Date: 11/23/20 Status: Orderedescitalopram 20 mg oral tablet 1 tablet = 20 mg, By Mouth, Daily, # 90 tablet, 3 Refills, Maintenance, 09/19/20 15:24:00 EDT, Tablet, [facility] # [...] 03/10/19 13:16:00 EST, Ointment, [facility] # [facility], 1 application Topically 3 times a day, 165.1, cm, 03/10/19 12:52:00 EST, Height Start Date: 03/10/19 Status: Orderedmethotrexate 2.5 mg oral tablet 6 tablet = 15 mg, By Mouth, Every week, # 30 tablet, 5 Refills, Maintenance, 08/09/20 15:25:00 EDT, Tablet, [facility] # [facility], 165, cm, 03/27/20 12:01:00 EST, Height, 73, kg, 02/08/20 8:38:00 EST, Dry Weight Start Date: 08/09/20 Status: Orderedomeprazole 40 mg oral enteric coated capsule 1 capsule = 40 mg, By Mouth, 2 times a day, before a meal, # 60 capsule, 1 Refills, Maintenance, 02/01/20 15:13:00 EST, EC Capsule, [facility] # [facility], Partial fill upon patient request if the prescription is for a schedule II opioid drug., 165.1, cm... Start Date: 02/01/20 Status: OrderedSoma 350 mg oral tablet 350 mg, 1, tablet, By Mouth, 3 times a day, PRN, # 270 tablet, Refills 0, Tot. Refills 0, Maintenance, as needed for pain, 02/08/21 16:31:00 EST, Route to Pharmacy Electronically, [facility], 165, cm, 01/12/21 8:46:00 EST, Height, 73, kg, ... Start Date: 02/08/21 Status: Orderedsucralfate 1 gm oral tablet 1 Gm, 1, tablet, By Mouth, 4 times a day, # 40 tablet, Refills 0, Tot. Refills 0, Maintenance, 02/01/20 15:13:00 EST, Route to Pharmacy Electronically, [facility] # 50, Partial fill upon patient [...] Active 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) Active longterm methotrexate user(Confirmed) 11/24/09 Active Moderate major depression(Confirmed) Active Neuropathic pain(Confirmed) Active Right shoulder pain(Confirmed) Active Diagnosis Diagnosis Type Effective Dates Health Clinical Infor mant Status Service Fatigue Discharge 02/21/21 Diagnosis Post-COVID syndrome Discharge 02/21/21 Diagnosis Fibromyalgia Discharge 02/21/21 Diagnosis Vital Signs Most recent to oldest [Reference Range]: 1 Height 165 cm (02/21/21 12:12 PM) Social History Social History Type Response Smoking Status Current some day smoker entered on: 07/02/17 Sex Female
--- OUTSIDE RECORDS SUMMARY | 2021-11-27 20:21 | XMS_ITS | Continuity of Care Document ---
:1975 Author Organization [facility] Address [address] [address]- Care Team Providers Name Role Phone Howard GIVENS, Deanne Pandya Primary Care Physician En[place] [facility] [facility] [place] [id number] Date(s): 09/10/21 - 09/17/21 [facility] [address] [address]- Encounter Diagnosis Dizziness (Discharge Diagnosis) - 09/10/21 Attending Physician: Graham Montano Jr, MD Admitting Physician: Graham Montano Jr, MD Referring [...] Not Given Patient Refuses 1Result Comment: [07/02/2017] [id number] Comment: [07/02/2017] [id number] Medications Ambien 10 mg oral tablet 1 tablet = 10 mg, By Mouth, Daily at bedtime, PRN for sleep, # 30 tablet, 5 Refills, Maintenance, 08/20/21 15:37:00 EDT, Tablet, [facility] # 50, 168, cm, 08/20/21 15:02:00 EDT, Height, 65.3, kg, 06/11/21 6:16:00 EDT, Dry Weight Start Date: 08/20/21 Status: OrderedAtivan 0.5 mg oral tablet 1 tablet = 0.5 mg, By Mouth, Daily, for 30 days, # 12 tablet, 5 Refills, Acute 02/16/22 15:35:00 EST, 08/20/21 15:35:00 EDT, [facility] # 50, Partial fill upon patient request if the prescription is for a schedule II opioid drug., 168, cm, ... 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 Moderate major depression(Confirmed) Active Neuropathic pain(Confirmed) Active Right shoulder pain(Confirmed) Active Diagnosis Diagnosis Type Effective Dates Health Status Clinical Serv ice Informant Dizziness Discharge 09/10/21 Diagnosis Vital Signs Most recent to oldest [Reference Range]: 1 Height 168 cm (09/10/21 1:05 PM) Weight 63.4 kg (09/10/21 1:05 PM) Pulse Rate [55-90 bpm] 74 bpm (09/10/21 1:05 PM) Body Mass Index [18.5-24.99] 22.46 (09/10/21 1:05 PM) Blood Pressure [90-138/55-84 mm Hg] 110/65 mm Hg (09/10/21 1:05 PM) Social History Social History Type Response Smoking Status Current some day smoker entered on: 07/02/17 Sex Female
--- OUTSIDE RECORDS SUMMARY | 2021-11-27 20:21 | XMS_ITS | Continuity of Care Document ---
:1975 Author Organization [facility] Address [address] [place] [address]- Care Team Providers Name Role Phone Mecca LEONARD, Pop Reveles Primary Care Physician Encounter [facility] Date(s): 11/22/20 - 12/22/20 [facility] [address] [place] [address]- Allergies, Adverse Reactions, Alerts Substance Reaction Severity [...] Not Given Patient Refuses 1Result Comment: [07/02/2017] [id number] Comment: [07/02/2017] [id number] Medications Ambien 10 mg oral tablet 1 [...] Maintenance, 09/19/20 15:24:00 EDT, Tablet, [facility] # [facility], 165, cm, 09/19/20 [...] Maintenance, 03/10/19 13:16:00 EST, Ointment, [facility] # 50, 1 application Topically 3 times a day, 165.1, cm, 03/10/19 12:52:00 EST, Height Start Date: 03/10/19 Status: Orderedmethotrexate 2.5 mg oral tablet 6 tablet = 15 mg, By Mouth, Every week, # 30 tablet, 5 Refills, Maintenance, 08/09/20 15:25:00 EDT, Tablet, [facility] # [facility], 165, cm, 03/27/20 12:01:00 EST, Height, 73, kg, 02/08/20 8:38:00 EST, Dry Weight Start Date: 08/09/20 Status: Orderedomeprazole 40 mg oral enteric coated capsule 1 capsule = 40 mg, By Mouth, 2 times a day, before a meal, # 60 capsule, 1 Refills, Maintenance, 02/01/20 15:13:00 EST, EC Capsule, [facility] # 50, Partial fill upon patient request if the prescription is for a schedule II opioid drug., 165.1, cm... Start Date: 02/01/20 Status: OrderedSoma 350 mg oral tablet 350 mg, 1, tablet, By Mouth, 3 times a day, PRN, # 270 tablet, Refills 0, Tot. Refills 0, Maintenance, as needed for pain, 11/23/20 17:09:00 EDT, Route to Pharmacy Electronically, [facility] # 50, [place] TO FILL EARLY PATIENT LOST PREVIOUS SCRIPT, 165... Start Date: 11/23/20 Status: Orderedsucralfate 1 gm oral tablet 1 Gm, 1, tablet, By Mouth, 4 times a day, # 40 tablet, Refills 0, Tot. 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
--- OUTSIDE RECORDS SUMMARY | 2021-11-27 20:21 | XMS_ITS | Continuity of Care Document ---
:1975 Author Organization [facility] Address Unavailable , Care Team Providers Name Role Phone Howard GIVENS, Deanne Pandya Primary Care Physician Encounter [facility] Date(s): 05/11/21 - 06/10/21 [facility] Allergies, Adverse Reactions, Alerts Substance Reaction Severity [...] Not Given Patient Refuses 1Result Comment: [07/02/2017] [id number] Comment: [07/02/2017] [id number] Medications Ambien 10 mg oral tablet 1 [...] 17:52:02 EST, Tablet Start Date: 02/15/14 Status: Orderedlidocaine 5% [...] Active Insomnia(Confirmed) Active 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
--- OUTSIDE RECORDS SUMMARY | 2021-11-27 20:21 | XMS_ITS | Continuity of Care Document ---
:1975 Author Organization [facility] Address Unavailable , Care Team Providers Name Role Phone Howard GIVENS, Deanne Pandya Primary Care Physician [place] [facility] [place] 07[place]11/21 - 08/10/21 [facility] Attending Physician: Ke Alston Admitting Physician: AdmKe [...] Not Given Patient Refuses 1Result Comment: [07/02/2017] [id number] Comment: [07/02/2017] [id number] Medications acetaminophen 325 mg oral tablet 975 mg, 3, tablet, By Mouth, Every 6 hours, # 60 tablet, Refills 0, Tot. Refills 0, Acute 06/12/22 9:12:00 EDT, 06/11/21 9:11:00 EDT, Route to Pharmacy Electronically, [facility], Partialfill upon patient request if the prescription is... Start Date: 06/11/21 Stop Date: 06/12/22 Status: OrderedAmbien 10 mg oral tablet 1 tablet = 10 mg, By Mouth, Daily at bedtime, PRN for sleep, # 30 tablet, 5 Refills, Maintenance, 05/02/21 12:55:00 EST, Tablet, [facility], 165, cm, 05/02/21 11:10:00 EST, Height, 73, kg, 02/08/20 8:38:00 EST, Dry Weight Start Date: 05/02/21 Status: Orderedbarium sulfate 2% oral suspension See Instructions, Please dispense 2 (450mL) bottles for total of 900mL, # 2 each, 0 Refills, Maintenance, 07/11/21 13:14:00 EDT, [facility] # 50, Partial fill upon patient request if the prescription is for a schedule II opioid drug., Please dispe... Start Date: 07/11/21 Status: Orderedescitalopram 20 mg oral tablet 1 tablet = 20 mg, By Mouth, Daily, # 90 tablet, 3 Refills, Maintenance, 09/19/20 15:24:00 EDT, Tablet, [facility] # [facility], 165, cm, 09/19/20 [...] 06/11/21 9:11:00 EDT, Route to Pharmacy Electronically, [facility], Partialfill upon patient request if the prescription is... 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
--- OUTSIDE RECORDS SUMMARY | 2021-11-27 20:21 | XMS_ITS | Continuity of Care Document ---
:1975 Author Organization [facility] Address [address] [place] [address]- Care Team Providers Name Role Phone Mecca LEONARD, Pop Reveles Primary Care Physician En[place] [facility] [place] Date(s): 03/30/19 - 04/06/19 [facility] [address] [place] [address]- [facility] Attending Physician: Navjot LEONARD, Gunner Kumar Allergies, [...] tetanus/diphtheria/pertussis, acel(Tdap)2 07/02/17 Given 1Result Comment: [07/02/2017] [id number] Comment: [07/02/2017] [id number] Medications Ambien 10 mg oral tablet 1 [...] 11 Refills, Maintenance, 03/03/19 17:15:00 EST, Tablet, [facility], [...] 13:16:00 EST, Ointment, [facility], 1 application Topically 3 times a day, 165.1, cm, 03/10/19 12:52:00 EST, Height Start Date: 03/10/19 Status: Orderedmethotrexate 2.5 mg oral tablet 6 tablet = 15 mg, By Mouth, Every week, NO REFILLS WITHOUT BLOODWORK, SEEN 03/10 AND ORDERS PLACED, #39 tablet, 5 Refills, Maintenance, 05/20/18 11:40:07 EDT, Tablet, [facility] Start Date: 05/20/18 Status: OrderedSoma 350 mg oral tablet 350 mg, 1, tablet, By Mouth, 3 times a day, PRN, # 90 tablet, Refills 5, Tot. Refills 5, Maintenance, as needed for pain, 03/04/19 16:50:00 EST, Route to Pharmacy Electronically, [facility], 165.1, cm, 01/13/19 13:24:00 [...] 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) Active senior living methotrexate user - 6800 mg 11/24/09 Active cumulative exposure as of 03/10/19(Confirmed) Depression, major(Confirmed) Active Neuropathic pain(Confirmed) Active Vital Signs Most recent to oldest [Reference Range]: 1 Height 165.10 cm (03/30/19 10:58 AM) Weight 74.2 kg (03/30/19 10:58 AM) Oxygen Saturation [94-100 %] 100 % (03/30/19 10:58 AM) Pulse Rate [55-90 bpm] 83 bpm (03/30/19 10:58 AM) Body Mass Index [18.5-24.99] 27.22 *H* (03/30/19 10:58 AM) Blood Pressure [90-138/55-84 mm Hg] 100/70 mm Hg (03/30/19 10:58 AM) Temperature [96.8-100.4 DegF] 98.4 DegF (03/30/19 10:58 AM) Blood pressure sites Arm, right (03/30/19 10:58 AM) Temperature Route Oral (03/30/19 10:58 AM) Social History Social History Type Response Smoking Status Current some day smoker entered on: 07/02/17 Sex
--- OUTSIDE RECORDS SUMMARY | 2021-11-27 20:21 | XMS_ITS | Continuity of Care Document ---
:1975 Author Organization [facility] Address Unavailable , Care Team Providers Name Role Phone Howard GIVENS, Deanne Pandya Primary Care Physician Encounter [facility] Date(s): 06/15/21 - 07/15/21 [facility] Allergies, Adverse Reactions, Alerts Substance Reaction [...] Not Given Patient Refuses 1Result Comment: [07/02/2017] [id number] Comment: [07/02/2017] [id number] Medications acetaminophen 325 mg oral tablet 975 mg, 3, tablet, By Mouth, Every 6 hours, # 60 tablet, Refills 0, Tot. Refills 0, Acute 06/12/22 9:12:00 EDT, 06/11/21 9:11:00 EDT, Route to Pharmacy Electronically, [facility], Partialfill upon patient request [...] 06/11/21 9:11:00 EDT, Route to Pharmacy Electronically, [facility], Partialfill upon patient request [...] 10:59:00 EDT, Route to Pharmacy Electronically, [facility] [...]
--- OUTSIDE RECORDS SUMMARY | 2021-11-27 20:22 | XMS_ITS | Continuity of Care Document ---
:1975 Author Organization [facility] Address [address] [place] [address]- Care Team Providers Name Role Phone Pop Wing MD Primary Care Physician [facility] Date(s): 05/20/19 - 05/30/19 [facility] [address] [place] [address]- [facility] Attending Physician: AdmKe mendez Admitting Physician: Admtr, Ar8 Referring Physician: Admtr, Ar8 Allergies, Adverse Reactions, Alerts Substance Reaction Severity Status morphine nausea Active penicillins hives high fever vomiting Active sulfa drugs hives Active Ciprofloxacin allergy blisters Cipro hives Active Benadryl restless leg syndrone makes me wired Active Coconut burning in throat blisters in mouth Active Duloxetine fatigue, word slurring, confusion Active Bactrim hives Active Immunizations Given and Recorded Vaccine Date Status Refusal Reason pneumococcal 23-valent vaccine1 07/02/17 Given tetanus/diphtheria/pertussis, acel(Tdap)2 07/02/17 Given Not Given Vaccine Date Status Refusal Reason Influenza Virus Vaccine (oldterm) 04/29/19 Not Given Parent Or Guardian Refuses Influenza Virus Vaccine (oldterm) 04/12/19 Not Given Patient Refuses 1Result Comment: [07/02/2017] [id number] Comment: [07/02/2017] [id number] Medications Ambien 10 mg oral tablet 1 [...] Maintenance, 03/03/19 17:15:00 EST, Tablet, [facility], 165.1, cm, 01/13/19 [...] Maintenance, 05/17/19 11:13:00 EDT, Tablet, [facility], 165.1, cm, 05/03/19 9:16:00 EDT, Height Start Date: 05/17/19 Status: OrderedSoma 350 mg oral tablet 350 mg, 1, tablet, By Mouth, 3 times a day, PRN, # 90 tablet, Refills 5, Tot. Refills 5, Maintenance, as needed for pain, 03/04/19 16:50:00 EST, Route to Pharmacy Electronically, 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
--- OUTSIDE RECORDS SUMMARY | 2021-11-27 20:22 | XMS_ITS | Continuity of Care Document ---
:1975 Author Organization [facility] Address [address] [place] [address]- Care Team Providers Name Role Phone Pop Wing MD Primary Care Physician [facility]counter [facility] Date(s): 10/04/20 - 11/05/20 [facility] [address] [place] [address]- Attending Physician: Pop Wing MD Allergies, Adverse Reactions, Alerts Substance Reaction Severity Status morphine nausea Active penicillins hives high fever vomiting Active sulfa drugs hives Active Ciprofloxacin allergy blisters Cipro hives Active Bactrim hives Active Duloxetine fatigue, word slurring, confusion Active Coconut burning in throat blisters in mouth Active Benadryl restless leg syndrone makes me wired Active Immunizations Given and Recorded Vaccine Date Status Refusal Reason pneumococcal 23-valent vaccine1 07/02/17 Given tetanus/diphtheria/pertussis, acel(Tdap)2 07/02/17 Given Not Given Vaccine Date Status Refusal Reason Influenza Virus Vaccine (oldterm) 04/29/19 Not Given Parent Or Guardian Refuses Influenza Virus Vaccine (oldterm) 04/12/19 Not Given Patient Refuses 1Result Comment: [07/02/2017] [id number] Comment: [07/02/2017] [id number] Medications Ambien 10 mg oral tablet 1 [...] Maintenance, 08/09/20 15:25:00 EDT, Tablet, [facility], 165, cm, 03/27/20 12:01:00 EST, Height, 73, kg, 02/08/20 8:38:00 EST, Dry Weight Start Date: 08/09/20 Status: Orderedomeprazole 40 mg oral enteric coated capsule 1 capsule = 40 mg, By Mouth, 2 times a day, before a meal, # 60 capsule, 1 Refills, Maintenance, 02/01/20 15:13:00 EST, EC Capsule, [facility] # [...] 09/19/20 15:23:00 EDT, Route to Pharmacy Electronically, [facility], 165, cm, 09/19/20 14:43:00 EDT, Height, 73, kg, 12... Start Date: 09/19/20 Status: Orderedsucralfate 1 gm oral tablet 1 Gm, 1, tablet, By Mouth, 4 times a day, # 40 tablet, Refills 0, Tot. Refills 0, Maintenance, 02/01/20 15:13:00 EST, Route to Pharmacy Electronically, [facility] # [facility], Partial fill upon patient [...]
--- OUTSIDE RECORDS SUMMARY | 2021-11-27 20:22 | XMS_ITS | Continuity of Care Document ---
:1975 Author Organization [facility] Adult Address [address] [place] [address]- Care Team Providers Name Role Phone Howard GIVENS, Deanne Pandya Primary Care Physician Encounter [facility] Date(s): 03/23/21 - 03/30/21 [facility] [address] [place] [address]- Encounter Diagnosis Viral illness (Discharge Diagnosis) - 03/23/21 Attending Physician: Deanne Lawrence NP Allergies, Adverse [...] Not Given Patient Refuses 1Result Comment: [07/02/2017] [id number] Comment: [07/02/2017] [id number] Medications Ambien 10 mg oral tablet 1 tablet = 10 mg, By Mouth, Daily at bedtime, PRN for sleep, # 90 tablet, 0 Refills, Maintenance, 11/23/20 17:09:00 EDT, Tablet, [facility], [place] TO FILL EARLY PATIENT LOST PREVIOUS SCRIPT, 165,cm, 09/19/20 14:43:00 EDT, Height, 73, kg, ... Start Date: 11/23/20 Status: Ordereddoxycycline hyclate 100 mg oral capsule 1 capsule = 100 mg, By Mouth, 2 times a day, for 10 days, # 20 capsule, 0 Refills, Acute 04/05/21 14:58:00 EST, 03/26/21 14:58:00 EST, Capsule, [facility], Partial fill upon patient request ifthe prescription is for a schedule II opioid drug... Start Date: 03/26/21 Stop Date: 04/05/21 Status: Orderedescitalopram 20 mg oral tablet 1 [...] 03/10/19 13:16:00 EST, Ointment, [facility], 1 application Topically 3 times a day, 165.1, cm, 03/10/19 12:52:00 EST, Height Start Date: 03/10/19 Status: Orderedmethotrexate 2.5 mg oral tablet 6 tablet = 15 mg, By Mouth, Every week, # 30 tablet, 5 Refills, Maintenance, 08/09/20 15:25:00 EDT, Tablet, [facility], 165, cm, [...] 02/08/21 16:31:00 EST, Route to Pharmacy Electronically, [facility], 165, cm, 01/12/21 8:46:00 EST, Height, 73, kg, ... Start Date: 02/08/21 Status: Orderedsucralfate 1 gm oral tablet 1 Gm, 1, tablet, By Mouth, 4 times a day, # 40 tablet, Refills 0, Tot. Refills 0, Maintenance, 02/01/20 15:13:00 EST, Route to Pharmacy Electronically, [facility], Partial fill upon [...] Dates Health Status Clinical In formant Service Viral illness Discharge 03/23/21 Diagnosis Vital Signs Most recent to oldest [Reference Range]: 1 Height 165 cm (03/23/21 10:25 AM) Social History Social History Type Response Smoking Status Current some day smoker entered on: 07/02/17 Sex Female
--- OUTSIDE RECORDS SUMMARY | 2021-11-27 20:22 | XMS_ITS | Continuity of Care Document ---
:1975 Author Organization [facility] Address [address] [place] [address]- Care Team Providers Name Role Phone Mecca LEONARD, Pop Reveles Primary Care Physician Encounter [facility] Date(s): 01/25/21 - 02/24/21 [facility] [address] [place] [address]- Allergies, Adverse Reactions, Alerts Substance Reaction Severity [...] Not Given Patient Refuses 1Result Comment: [07/02/2017] [id number] Comment: [07/02/2017] [id number] Medications Ambien 10 mg oral tablet 1 [...] 02/08/21 16:31:00 EST, Route to Pharmacy Electronically, [facility], 165, cm, 01/12/21 8:46:00 EST, Height, 73, kg, ... Start Date: 02/08/21 Status: Orderedsucralfate 1 gm oral tablet 1 Gm, 1, tablet, By Mouth, 4 times a day, # 40 tablet, Refills 0, Tot. 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
--- OUTSIDE RECORDS SUMMARY | 2021-11-27 20:22 | XMS_ITS | Continuity of Care Document ---
:1975 Author Organization [facility] Address [address] [place] [address]- Care Team Providers Name Role Phone Mecca LEONARD, Pop Reveles Primary Care Physician [place] [facility] [place] 01/25/21 - 02/01/21 [facility] [address] [place] [address]- Attending Physician: Navjot LEONARD, Gunner Kumar Referring Physician: oPp Wing MD Allergies, Adverse Reactions, Alerts Substance [...] Not Given Patient Refuses 1Result Comment: [07/02/2017] [id number] Comment: [07/02/2017] [id number] Medications Ambien 10 mg oral tablet 1 tablet = 10 mg, By Mouth, Daily at bedtime, PRN for sleep, # 90 tablet, 0 Refills, Maintenance, 11/23/20 17:09:00 EDT, Tablet, [facility], [place] TO F[place] EARLY PATIENT LOST PREVIOUS SCRIPT, 165,cm, 09/19/20 14:43:00 EDT, Height, 73, kg, 12/15/... Start Date: 11/23/20 Status: Orderedescitalopram 20 mg [...] 5 Refills, Maintenance, 08/09/20 15:25:00 EDT, Tablet, [facility], 165, cm, 03/27/20 12:01:00 EST, Height, 73, kg, 02/08/20 8:38:00 EST, Dry Weight Start Date: 08/09/20 Status: Orderedomeprazole 40 mg oral enteric coated capsule 1 capsule = 40 mg, By Mouth, 2 times a day, before a meal, # 60 capsule, 1 Refills, Maintenance, 02/01/20 15:13:00 EST, EC Capsule, [facility] # [facility], [...] 11/23/20 17:09:00 EDT, Route to Pharmacy Electronically, [facility] # [facility], [place] TO FILL EARLY PATIENT LOST PREVIOUS SCRIPT, 165... Start Date: 11/23/20 Status: Orderedsucralfate 1 gm oral tablet 1 Gm, 1, tablet, By Mouth, 4 times a day, # 40 tablet, Refills 0, Tot. Refills 0, Maintenance, 02/01/20 15:13:00 EST, Route to Pharmacy Electronically, [facility] # [facility], Partial fill upon patient [...]
--- OUTSIDE RECORDS SUMMARY | 2021-11-27 20:22 | XMS_ITS | Continuity of Care Document ---
:1975 Author Organization [facility] Address Unavailable , Care Team Providers Name Role Phone Howard GIVENS, Deanne Pandya Primary Care Physician Encounter [facility] Date(s): 08/15/21 - 09/14/21 [facility] Allergies, Adverse Reactions, Alerts Substance Reaction [...] Not Given Patient Refuses 1Result Comment: [07/02/2017] [id number] Comment: [07/02/2017] [id number] Medications Ambien 10 mg oral tablet 1 [...] Acute 02/16/22 15:35:00 EST, 08/20/21 15:35:00 EDT, [facility], Partial fill upon patient request if the prescription is for a schedule II opioid drug., 168, cm, ... Start Date: 08/20/21 Stop Date: 02/16/22 Status: Orderedescitalopram 20 mg oral tablet 1 tablet = 20 mg, By Mouth, Daily, # 90 tablet, 3 Refills, Maintenance, 08/20/21 15:37:00 EDT, Tablet, [facility], 168, cm, [...] 5 Refills, Maintenance, 05/04/21 8:40:00 EST, Tablet, [facility], 165, cm, 05/02/21 11:10:00 EST, Height, 73, kg, 02/08/20 8:38:00 EST, DryWeight Start Date: 05/04/21 Status: OrderedSoma 350 mg oral tablet 350 mg, 1, tablet, By Mouth, 3 times a day, PRN, # 270 tablet, Refills 1, Tot. 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
--- OUTSIDE RECORDS SUMMARY | 2021-11-27 20:22 | XMS_ITS | Continuity of Care Document ---
:1975 Author Organization [facility] Address [address] [place] [address]- Care Team Providers Name Role Phone Mecca LEONARD, Pop Reveles Primary Care Physician [facility]counter [facility] Date(s): 06/12/20 - 07/12/20 [facility] [address] [place] [address]- Allergies, Adverse Reactions, Alerts Substance Reaction Severity [...] Not Given Patient Refuses 1Result Comment: [07/02/2017] [id number] Comment: [07/02/2017] [id number] Medications Ambien 10 mg oral tablet 1 tablet = 10 mg, By Mouth, Daily at bedtime, PRN for sleep, # 30 tablet, 0 Refills, Maintenance, 06/13/20 17:06:00 EDT, Tablet, [facility], 165, cm, 03/27/20 12:01:00 EST, Height, 73, kg, 02/08/20 8:38:00 EST, Dry Weight Start Date: 06/13/20 Status: Orderedescitalopram 20 mg oral tablet 1 tablet = 20 mg, By Mouth, Daily, # 90 tablet, 1 Refills, Maintenance, 06/20/20 16:49:00 EDT, Tablet, [facility], 165, cm, [...] 5 Refills, Maintenance, 12/08/19 16:14:00 EDT, Tablet, [facility], 165.1, cm, 05/03/19 9:16:00 EDT, Height Start Date: 12/08/19 Stop Date: 06/05/20 Status: OrderedMobic 15 mg oral tablet 1 tablet = 15 mg, By Mouth, Daily, # 20 tablet, 0 Refills, Maintenance, 03/27/20 13:06:00 EST, Tablet, [facility] # [facility], Partial fill upon patient request if the prescription is for a schedule II opioid drug., 165, cm, 03/27/20 12:01:00 EST, Height... Start Date: 03/27/20 Status: Orderedomeprazole 40 mg oral enteric coated capsule 1 capsule = 40 mg, By Mouth, 2 times a day, before a meal, # 60 capsule, 1 Refills, Maintenance, 02/01/20 15:13:00 EST, EC Capsule, [facility] # [facility], Partial fill upon patient [...] Active Insomnia(Confirmed) Active 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) Active prison methotrexate user(Confirmed) 11/24/09 Active Depression, major(Confirmed) Active Neuropathic pain(Confirmed) Active Right shoulder pain(Confirmed) Active Social History Social History Type Response Smoking Status Current some day smoker entered on: 07/02/17 Sex Female
--- OUTSIDE RECORDS SUMMARY | 2021-11-27 20:22 | XMS_ITS | Continuity of Care Document ---
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 as of 03/10/19 (Discharge Diagnosis) - 03/10/19 Fibromyalgia (Discharge Diagnosis) - 03/10/19 Chronic pain syndrome (Discharge Diagnosis) - 03/10/19 Insomnia (Discharge Diagnosis) - 03/10/19 Right carotid bruit (Discharge Diagnosis) - 03/10/19 Episodic lightheadedness (Discharge Diagnosis) - 03/10/19 Attending Physician: Pop Wing MD Allergies, Adverse [...] tetanus/diphtheria/pertussis, acel(Tdap)2 07/02/17 Given 1Result Comment: [07/02/2017] [id number] Comment: [07/02/2017] [id number] Medications Ambien 10 mg oral tablet 1 tablet = 10 mg, By Mouth, Daily at bedtime, PRN for sleep, # 30 tablet, 5 Refills, Maintenance, 03/04/19 16:50:00 EST, Tablet, [facility], 165.1, cm, 01/13/19 13:24:00 EST, Height Start Date: 03/04/19 Status: Orderedescitalopram 20 mg oral tablet 1 tablet = 20 mg, By Mouth, Daily, # 30 tablet, 11 Refills, Maintenance, 03/03/19 17:15:00 EST, Tablet, [facility], 165.1, cm, 01/13/19 [...] Maintenance, 05/20/18 11:40:07 EDT, Tablet, [facility] Start Date: 05/20/18 Status: OrderedSoma 350 mg oral tablet 350 mg, 1, tablet, By Mouth, 3 times a day, PRN, # 90 tablet, Refills 5, Tot. 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/09 Active cumulative exposure as of 03/10/19(Confirmed) Depression, major(Confirmed) Active Neuropathic pain(Confirmed) Active Diagnosis Diagnosis Type Effective Dates Health Clinical Infor mant Status Service Generalized pain Discharge 03/10/19 Diagnosis PLEVA (pityriasis Discharge 03/10/19 lichenoides et Diagnosis varioliformis acuta) - on MTX Chronic pain syndrome Discharge 03/10/19 Diagnosis Fibromyalgia Discharge 03/10/19 Diagnosis Insomnia Discharge 03/10/19 Diagnosis [facility] Discharge 03/10/19 methotrexate user - Diagnosis 6800 mg cumulative exposure as of 03/10/19 Right carotid bruit Discharge 03/10/19 Diagnosis Episodic Discharge 03/10/19 lightheadedness Diagnosis Vital Signs Most recent to oldest [Reference Range]: 1 Height 165.10 cm (03/10/19 12:52 PM) Weight 76.5 kg (03/10/19 12:52 PM) Oxygen Saturation [94-100 %] 99 % (03/10/19 12:52 PM) Pulse Rate [55-90 bpm] 88 bpm (03/10/19 12:52 PM) Body Mass Index [18.5-24.99] 28.07 *H* (03/10/19 12:52 PM) Blood Pressure [90-138/55-84 mm Hg] 106/64 mm Hg (03/10/19 12:52 PM) Temperature [96.8-100.4 DegF] 98.7 DegF (03/10/19 12:52 PM) Mode of Delivery (Oxygen) Room air (03/10/19 12:52 PM) Blood pressure sites Arm, left (03/10/19 12:52 PM) Temperature Route Oral (03/10/19 12:52 PM) Weight Obtained Via Standing scale (03/10/19 12:52 PM) Social History Social History Type Response Smoking Status Current some day smoker entered on: 07/02/17 Sex
--- OUTSIDE RECORDS SUMMARY | 2021-11-27 20:22 | XMS_ITS | Continuity of Care Document ---
:1975 Author Organization [facility] Address [address] [place] [address], [address] [address]- Care Team Providers Name Role Phone Howard GIVENS, Deanne Pandya Primary Care Physician Encounter 10/04/21 - 10/11/21 [facility] [address], [address] [address]- Attending Physician: Jag GIVENS, Sara Admitting Physician: [...] Active Ciprofloxacin allergy blisters Bactrim hives Active Duloxetine fatigue, word slurring, confusion Active Immunizations Given and Recorded Vaccine Date Status Refusal Reason influenza virus vaccine, inactivated 12/14/20 Recorded pneumococcal 23-valent vaccine1 07/02/17 Given tetanus/diphtheria/pertussis, acel(Tdap)2 07/02/17 Given Not Given Vaccine Date Status Refusal Reason Influenza Virus Vaccine (oldterm) 04/29/19 Not Given Parent Or Guardian Refuses Influenza Virus Vaccine (oldterm) 04/12/19 Not Given Patient Refuses 1Result Comment: [07/02/2017] [id number] Comment: [07/02/2017] [id number] Medications Ambien 10 mg oral tablet 1 [...]
--- OUTSIDE RECORDS SUMMARY | 2021-11-27 20:22 | XMS_ITS | Continuity of Care Document ---
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 home methotrexate user (Discharge Diagnosis) - 05/02/21 Chronic pain syndrome (Discharge Diagnosis) - 05/02/21 Breast mass, left (Discharge Diagnosis) - 05/02/21 Insomnia (Discharge Diagnosis) - 05/02/21 Dizziness (Discharge Diagnosis) - 05/02/21 Attending Physician: Not on Staff, Attending MD Allergies, Adverse Reactions, Alerts Substance Reaction [...] Not Given Patient Refuses 1Result Comment: [07/02/2017] [id number] Comment: [07/02/2017] [id number] Medications Ambien 10 mg oral tablet 1 tablet = 10 mg, By Mouth, Daily at bedtime, PRN for sleep, # 30 tablet, 5 Refills, Maintenance, 05/02/21 12:55:00 EST, Tablet, [facility], 165, cm, 05/02/21 [...] 05/04/21 8:40:00 EST, Tablet, [facility], 165, cm, 05/02/21 11:10:00 EST, Height, 73, kg, 02/08/20 8:38:00 EST, DryWeight Start Date: 05/04/21 Status: OrderedSoma 350 mg oral tablet 350 mg, 1, tablet, By Mouth, 3 times a day, PRN, # 270 tablet, Refills 1, Tot. 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 methotrexate user Diagnosis Chronic pain Discharge 05/02/21 syndrome Diagnosis Breast mass, left Discharge 05/02/21 Diagnosis Insomnia Discharge 05/02/21 Diagnosis Dizziness Discharge 05/02/21 Diagnosis Vital Signs Most recent to oldest [Reference Range]: 1 Height 165 cm (05/02/21 11:10 AM) Weight 65.5 kg (05/02/21 11:10 AM) Oxygen Saturation [94-100 %] 100 % (05/02/21 11:10 AM) Pulse Rate [55-90 bpm] 86 bpm (05/02/21 11:10 AM) Body Mass Index [18.5-24.99] 24.06 (05/02/21 11:10 AM) Blood Pressure [90-138/55-84 mm Hg] 107/67 mm Hg (05/02/21 11:10 AM) Temperature [96.8-100.4 DegF] 97.9 DegF (05/02/21 11:10 AM) Blood pressure sites Arm, right (05/02/21 11:10 AM) Temperature Route Oral (05/02/21 11:10 AM) Weight Obtained Via Standing scale (05/02/21 11:10 AM) Social History Social History Type Response Smoking Status Current some day smoker entered on: 07/02/17 Sex Female
--- OUTSIDE RECORDS SUMMARY | 2021-11-27 20:22 | XMS_ITS | Continuity of Care Document ---
:1975 Author Organization [facility] Address [address], [address] [place] [address]- Care Team Providers Name Role Phone Pop Wing MD Primary Care Physician Encounter 03/19/19 - 03/26/19 [facility] [address], [address] [place] [address]- [facility] Attending Physician: Pop Wing MD Admitting Physician: Pop Wing MD Referring Physician: Pop Wing MD Allergies, [...] tetanus/diphtheria/pertussis, acel(Tdap)2 07/02/17 Given 1Result Comment: [07/02/2017] [id number] Comment: [07/02/2017] [id number] Medications Ambien 10 mg oral tablet 1 [...] 11 Refills, Maintenance, 03/03/19 17:15:00 EST, Tablet, [facility], 165.1, cm, 01/13/19 [...] 5 Refills, Maintenance, 05/20/18 11:40:07 EDT, Tablet, [facility] Start Date: 05/20/18 Status: OrderedSoma 350 mg oral tablet 350 mg, 1, tablet, By Mouth, 3 times a day, PRN, # 90 tablet, Refills 5, Tot. Refills 5, Maintenance, as needed for pain, 03/04/19 16:50:00 EST, Route to Pharmacy Electronically, [facility], 165.1, cm, 01/13/19 [...] Active 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) Active jail methotrexate user - 6800 mg 11/24/09 Active cumulative exposure as of 03/10/19(Confirmed) Depression, major(Confirmed) Active Neuropathic pain(Confirmed) Active Social History Social History Type Response Smoking Status Current some day smoker entered on: 07/02/17 Sex
--- OUTSIDE RECORDS SUMMARY | 2021-11-27 20:22 | XMS_ITS | Continuity of Care Document ---
:1975 Author Organization [facility] Address [address] [place] [address]- Care Team Providers Name Role Phone Mecca LEONARD, Pop Reveles Primary Care Physician Encounter [facility] Date(s): 10/06/20 - 11/05/20 [facility] [address] [place] [address]- Attending Physician: Admtr, Ke Admitting Physician: Admtr, [...] Not Given Patient Refuses 1Result Comment: [07/02/2017] [id number] Comment: [07/02/2017] [id number] Medications Ambien 10 mg oral tablet 1 [...] 5 Refills, Maintenance, 08/09/20 15:25:00 EDT, Tablet, [facility] # [facility], 165, cm, 03/27/20 12:01:00 EST, Height, 73, kg, 02/08/20 8:38:00 EST, Dry Weight Start Date: 08/09/20 Status: Orderedomeprazole 40 mg oral enteric coated capsule 1 capsule = 40 mg, By Mouth, 2 times a day, before a meal, # 60 capsule, 1 Refills, Maintenance, 02/01/20 15:13:00 EST, EC Capsule, [facility] # [facility], Partial fill upon patient request if the prescription is for a schedule II opioid drug., 165.1, cm... Start Date: 02/01/20 Status: OrderedSoma 350 mg oral tablet 350 mg, 1, tablet, By Mouth, 3 times a day, PRN, # 270 tablet, Refills 0, Tot. Refills 0, Maintenance, as needed for pain, 09/19/20 15:23:00 EDT, Route to Pharmacy Electronically, [email or web address], 165, cm, 09/19/20 14:43:00 EDT, Height, 73, kg, 12... Start Date: 09/19/20 Status: Orderedsucralfate 1 gm oral tablet 1 Gm, 1, tablet, By Mouth, 4 times a day, # 40 tablet, Refills 0, Tot. Refills 0, Maintenance, 02/01/20 15:13:00 EST, Route to Pharmacy Electronically, [email or web address], Partial fill upon [...] disease(Confirmed) Active long-term methotrexate user(Confirmed) 11/24/09 Active Moderate major depression(Confirmed) [...]
--- OUTSIDE RECORDS SUMMARY | 2021-11-27 20:22 | XMS_ITS | Continuity of Care Document ---
:1975 Author Organization [facility] Address [address] [place] [address]- Care Team Providers Name Role Phone Pop Wing MD Primary Care Physician Encounter [facility] Date(s): 03/27/20 - 04/26/20 [facility] [address] [place] [address]- Attending Physician: Admtr, Ke Admitting Physician: AdmtrKe [...] Not Given Patient Refuses 1Result Comment: [07/02/2017] [id number] Comment: [07/02/2017] [id number] Medications Ambien 10 mg oral tablet 1 [...] 3 Refills, Maintenance, 06/08/19 9:46:00 EDT, Tablet, [facility] #[id number], 165.1, cm, 05/03/19 9:16:00 EDT, Height [...] 0 Refills, Maintenance, 03/27/20 13:06:00 EST, Tablet, [facility] # [facility], Partial [...] Active Insomnia(Confirmed) Active 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) Active correction methotrexate user(Confirmed) 11/24/09 Active Depression, major(Confirmed) Active [...]
== END 2021-11-27 21:24 | disposition left against medical advice (07) ==
LOC: HO.ED 20:16
PROVIDERS: Emergency Provider Emergency Medicine
DX: M25.512 Pain in left shoulder (principal)

== ENCOUNTER 2023-08-26 15:57 | Outpatient (AMB) | payer OTHER, SELFPAY ==
--- NOTE | 2023-08-26 15:58 | MHC.OFFWIV ---
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 Sore throat Intake Note: pt is here for sore throat Patient Tobacco Use Status: Never used Tobacco Allergies Penicillins [PENICILLINS] Allergy (Intermediate, Verified 08/26/23 15:59) HIVES/VOMITING sulfamethoxazole [From BACTRIM] Allergy (Intermediate, Verified 08/26/23 15:59) BLISTERS trimethoprim [From BACTRIM] Allergy (Intermediate, Verified 08/26/23 15:59) BLISTERS ciprofloxacin [Cipro] Allergy (Unknown, Verified 08/26/23 15:59) Hives penicillin V Allergy (Unknown, Verified 08/26/23 15:59) Hives Sulfa (Sulfonamide Antibiotics) [SULFA (SULFONAMIDE ANTIBIOTICS)] Allergy (Unknown, Verified 08/26/23 15:59) HIVES From CIPRO Allergy (Intermediate, Uncoded 12/19/20 13:30) HIVES Medication List - Last Reconciled 08/26/23 by Valarie Mccracken, TOSHA carisoprodol 350 mg PO TID PRN escitalopram oxalate 20 mg PO DAILY Magic Mouthwash Diphen/Lido/Antacid 1:1:1 5 mL PO Q6H PRN methotrexate sodium 15 mg PO QWEEK zolpidem 10 mg PO BEDTIME PRN Do you need a note to return to daycare/school/sports/work: No HPI FISHER TRAP Sore throat HPI Details This note is constructed using voice recognition software. While every effort has been made to ensure accuracy, social work msw errors may have been included. 47 y.o. female presents for pharyngitis onset 2 days ago. She notes a chronic medical condition which crosses additional postnasal drip compared to the average human. She also notes that her allergies have been acting up more than usual. She denies fever, body aches, chills, cough. She is unable to take prednisone due to her chronic medications. Nasal sprays are ineffective in her treatment plans based on her chronic medical conditions as well. She has been treating using saltwater gargles, warm liquids, throat drops. None have been effective. [facility] Medical History Gallstone PLEVA (pityriasis lichenoides et varioliformis acuta) Social History Patient Tobacco Use Status: Never used Tobacco Review of Systems Const All systems reviewed & are unremarkable except as noted in HPI and below Physical Exam Vital Signs: Last Vital Signs Temp 98.7 F 08/26/23 15:59 Pulse 86 08/26/23 15:59 BP 118/70 08/26/23 15:59 Pulse Ox 98 08/26/23 15:59 BMI result Body Mass Index 23.3 Const General: cooperative, healthy appearing, comfortable and no acute distress Orientation/consciousness: patient oriented x3 Limitations: no limitations HEENT Head: Yes normal to inspection Ears: hearing grossly normal bilaterally, external ears normal and TM's normal bilaterally General nose exam: Normal external nose present, Normal nares present and No nasal discharge present Face and sinus: Yes normal facial exam and Yes sinuses nontender Mouth: Normal oral and palatal mucosa present and moist mucous membranes Throat: Yes tonsils normal, Yes uvula midline and Yes posterior oropharynx abnormal (Erythema) Eyes General: appearance normal, both eyes and all related structures Neck Neck: Yes normal visual inspection Resp Effort & Inspection: normal respiratory effort, able to speak in complete sentences, Actively coughing, no respiratory distress, not tachypneic, no tripod positioning and no use of accessory muscles Auscultation: clear to auscultation bilaterally Cardio Jugular venous distension: no JVD Rate: regular rate Rhythm: regular rhythm Heart sounds: S1 normal heart sound present, S2 normal heart sound present, no click, no gallops, no murmurs and no rubs Skin General skin exam: no rashes or lesions noted, elasticity normal and turgor normal Neuro General: patient oriented x3 Assessment & Plan Assessment & Plan (1) Pharyngitis: Code(s): J02.9 - Acute pharyngitis, unspecified Qualifiers: Pharyngitis/tonsillitis etiology: unspecified etiology Qualified Code(s): J02.9 - Acute pharyngitis, unspecified Plan: Patient does not meet FLEA criteria for strep throat, negative in office strep test. Given inability to tolerate steroids, Rx provided for magic mouthwash for symptomatic treatment. Advised monitoring for any signs and symptoms of infection including fever, follow up with PCP as needed. Plan See above for full details and plan. Medications: New Magic Mouthwash Diphen/Lido/Antacid 1:1:1 Lidocaine Viscous 2 % 80mL; diphenhydramine 12.5 mg/5 mL 80mL; aluminum-mag hydrox-simeth [id number]/5mL 80mL 5 mL PO Q6H PRN 240 mL 0RF pain Discontinued hydromorphone (Dilaudid) Patient may request partial fill Discontinued Reason: Patient Completed Course 2 mg PO Q4-6H PRN 10 tabs 0RF pain Coding Level of Care Code New Pt Level 3 (09329) Diagnoses Pharyngitis, unspecified etiology J02.9 Pharyngitis/tonsillitis etiology: unspecified etiology
[2023-08-26 15:59] VITALS: BP 118/70; PULSE 86; TEMP 37.1; O2SAT 98; BMI 23.3
== END 2023-08-26 16:37 | disposition home or self-care (01) ==
PROVIDERS: PCP Nurse Practitioner Family; Visit Provider Registered Nurse
DX: J02.9 Acute pharyngitis, unspecified (principal)
CPT/HCPCS: 99202

== ENCOUNTER 2023-11-07 08:10 | Outpatient (AMB) | payer OTHER, SELFPAY ==
--- NOTE | 2023-11-07 08:39 | AM.OFFWIN_ITS ---
Intake Vital Signs 11/07/23 08:41 Height 5 ft 5 in Weight 149 lb BMI 24.8 BP 102/60 Blood Pressure Location Rt brachial Position Sitting Pulse 69 Pulse Source Pulse Oximeter Temp 98.2 F Temp Source Oral Pulse Oximetry (%) 97 Oxygen Delivery Method Room Air Intake Visit Reasons: EP cold symptoms, lung pain Intake Note: Patient here for fever, chest tightness that has been present for a couple of days. she mentioned she is on a chemo medication. Patient Tobacco Use Status: Never used Tobacco Allergies Penicillins [PENICILLINS] Allergy (Intermediate, Verified 11/07/23 08:43) HIVES/VOMITING sulfamethoxazole [From BACTRIM] Allergy (Intermediate, Verified 11/07/23 08:43) BLISTERS trimethoprim [From BACTRIM] Allergy (Intermediate, Verified 11/07/23 08:43) BLISTERS ciprofloxacin [Cipro] Allergy (Unknown, Verified 11/07/23 08:43) Hives penicillin V Allergy (Unknown, Verified 11/07/23 08:43) Hives Sulfa (Sulfonamide Antibiotics) [SULFA (SULFONAMIDE ANTIBIOTICS)] Allergy (Unknown, Verified 11/07/23 08:43) HIVES From CIPRO Allergy (Intermediate, Uncoded 11/07/23 08:43) HIVES Do you need a note to return to daycare/school/sports/work: Yes HPI HPI Comments History of Present Illness Details Patient is a 48-year-old female complaining of 3 days of a subjective fever, chills, headache, chest tightness and shortness of breaths, sore throat with some postnasal drip which causes a cough but no cough other than that. She denies any sinus pain or ear pain. She states she does have seasonal allergies, she also takes methotrexate weekly. She does not have any young children or sick contacts. She did test for COVID at home and it was negative. She has be en using [id number] medications to help improve her symptoms which helps a small amount. She states she has had COVID 3 times before and has taken Paxlovid in the past with her methotrexate with no problems. [facility] Medical History Gallstone PLEVA (pityriasis lichenoides et varioliformis acuta) Social History Patient Tobacco Use Status: Never used Tobacco Review of Systems Const All systems reviewed & are unremarkable except as noted in HPI and below Physical Exam Vital Signs: Last Vital Signs Temp 98.2 F 11/07/23 08:41 Pulse 69 11/07/23 08:41 BP 102/60 11/07/23 08:41 Pulse Ox 97 11/07/23 08:41 Oxygen Delivery Method Room Air 11/07/23 08:41 BMI result Body Mass Index 24.8 Const General: cooperative, healthy appearing, comfortable and no acute distress Orientation/consciousness: patient oriented x3 Limitations: no limitations HEENT Head: Yes normal to inspection Ears: hearing grossly normal bilaterally, external ears normal and TM's normal bilaterally General nose exam: Normal external nose present, Normal nares present and No nasal discharge present Face and sinus: Yes normal facial exam and Yes sinuses nontender Mouth: Normal oral and palatal mucosa present and moist mucous membranes Throat: Yes tonsils normal, Yes uvula midline and Yes posterior oropharynx abnormal (Erythema) Eyes General: appearance normal, both eyes and all related structures Neck Neck: Yes normal visual inspection Resp Effort & Inspection: normal respiratory effort, able to speak in complete sentences, Actively coughing, no respiratory distress, not tachypneic, no tripod positioning and no use of accessory muscles Auscultation: clear to auscultation bilaterally Cardio Rate: regular rate Rhythm: regular rhythm Heart sounds: normal S1 and S2 Skin General skin exam: no rashes or lesions noted Neuro General: patient oriented x3 Extrem General: Yes normal to inspection and Yes no clubbing, cyanosis or edema Assessment & Plan Assessment & Plan (1) URI (upper respiratory infection): Code(s): J06.9 - Acute upper respiratory infection, unspecified Qualifiers: URI type: unspecified URI Qualified Code(s): J06.9 - Acute upper respiratory infection, unspecified Plan: Vital signs are stable, patient is well-appearing, no chest x-ray indicated as lung sounds were clear. Recommended she treat herself with [id number] medications. If she does test positive for COVID, I did tell her I would send Paxlovid which she is agreeable to taking knowing the side effects and limitations of the medication. Plan See above Orders: Orders SARS-CoV2/FLU/RSV Today J06.9 - Acute upper respiratory infection, unspecified Coding Level of Care Code New Pt Level 3 (45465) Diagnoses Upper respiratory tract infection, unspecified type J06.9 URI type: unspecified URI
[2023-11-07 08:41] VITALS: BP 102/60; PULSE 69; TEMP 36.8; O2SAT 97; BMI 24.8
== END 2023-11-07 09:46 | disposition home or self-care (01) ==
PROVIDERS: PCP Nurse Practitioner Family; Visit Provider Physician Assistant
DX: J06.9 Acute upper respiratory infection, unspecified (principal)
CPT/HCPCS: 99203

== ENCOUNTER 2023-11-07 09:23 | Outpatient (REF) | payer OTHER, SELFPAY ==
[2023-11-07 11:20] LABS: Influenza A PCR NEGATIVE (Negative); Influenza B PCR NEGATIVE (Negative); Resp Syncy Virus RNA Qual PCR NEGATIVE (Negative); SARS COV2 PCR INHOUSE NEGATIVE (Negative)
== END 2023-11-07 09:24 | disposition home or self-care (01) ==
LOC: HO.LAB 09:23
PROVIDERS: Visit Provider Physician Assistant
DX: J06.9 Acute upper respiratory infection, unspecified (principal)
CPT/HCPCS: 0241U

== ENCOUNTER 2024-03-02 14:15 | Emergency (ER) | payer OTHER, SELFPAY ==
--- NOTE | ~2024-03-02 | XR_ITS ---
CLINICAL HISTORY: chest pain, recent COVID Chest Radiographs, 2 views Comparison: None Findings: No cardiomegaly. Normal mediastinal contours. No pneumothorax. No opacity. No pleural effusion. Normal upper abdomen. No acute fracture. Impression: No acute findings. This document has been electronically signed by: Nerissa Carvjaal MD on 03/02/2024 17:03:32
--- NOTE | 2024-03-02 14:17 | ECG_ITS ---
Test Reason : CHEST TIGHTNESS Blood Pressure : */* mmHG Vent. Rate : 86 BPM Atrial Rate : 86 BPM P-R Int : 114 ms QRS Dur : 78 ms QT Int : 368 ms P-R-T Axes : 28 35 26 degrees QTcB Int : 440 ms Normal sinus rhythm Normal ECG When compared with ECG of 24-Apr-2021 16:59, No significant change was found Referred By: Ari Angeles Electronically Signed By: JOSE CHRISTIANSON
[2024-03-02 14:31] VITALS: BP 127/70; PULSE 88; RESP 18; TEMP 36.8; O2SAT 100; BMI 23.4
--- NOTE | 2024-03-02 15:22 | ED.CHESTPAIN ---
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 Patient states she was diagnosed a days ago and had a fever at that time that resolved. She has also had a nonproductive cough, headache and myalgias. The chest pain started 3 days ago. She has not taken any pain medications at home. She is a current tobacco user less than 1 pack a day. She denies history of diabetes, hypertension, hyperlipidemia or coronary artery disease. She did not receive COVID-19 vaccination due to her autoimmune condition. She states she typically has ulcerative manifestations with her autoimmune disease but this has been in check given her weekly chemotherapy. No hemoptysis, no lower extremity swelling or pain, no cancer history, no immobilization, no recent long travel. Related Data Home Medications ?Medication ?Instructions ?Recorded ?Confirmed carisoprodol 350 mg tablet 350 mg PO TID PRN 08/26/23 08/26/23 escitalopram oxalate 20 mg tablet 20 mg PO DAILY 08/26/23 08/26/23 methotrexate sodium 2.5 mg tablet 15 mg PO QWEEK 08/26/23 08/26/23 zolpidem 10 mg tablet 10 mg PO BEDTIME PRN 08/26/23 08/26/23 Previous Rx's ?Medication ?Instructions ?Recorded Magic Mouthwash 5 ml PO Q6H PRN pain #240 mL 08/26/23 Diphen/Lido/Antacid 1:1:1 240 mL suspension Allergies Allergy/AdvReac Type Severity Reaction Status Date / Time Penicillins [PENICILLINS] Allergy Intermediate HIVES/VOMIT Verified 03/02/24 14:36 ING sulfamethoxazole Allergy Intermediate BLISTERS Verified 03/02/24 14:36 [From BACTRIM] trimethoprim [From BACTRIM] Allergy Intermediate BLISTERS Verified 03/02/24 14:36 ciprofloxacin [Cipro] Allergy Unknown Hives Verified 03/02/24 14:36 penicillin V Allergy Unknown Hives Verified 03/02/24 14:36 Sulfa (Sulfonamide Allergy Unknown HIVES Verified 03/02/24 14:36 Antibiotics) [SULFA (SULFONAMIDE ANTIBIOTICS)] From CIPRO Allergy Intermediate HIVES Uncoded 11/07/23 08:43 Review of Systems Review of Systems: Yes all other systems are reviewed and are negative [facility] Past Medical History Medical History Gallstone PLEVA (pityriasis lichenoides et varioliformis acuta) Social History Social History Patient Tobacco Use Status: Never used Tobacco Advance Directives: Yes Advance Directives Information Provided: No Advance Directives on File: No Physical Exam Vital Signs: Vital Signs: Last Vital Signs Temp 98.2 F 03/02/24 18:15 Pulse 79 03/02/24 18:15 Resp 18 03/02/24 18:15 BP 111/71 03/02/24 18:15 Pulse Ox 100 03/02/24 18:15 O2 Del Method Room Air 03/02/24 18:15 BMI result Body Mass Index 23.4 Constitutional: ?Alert, oriented, speaking in full sentences, in mild acute distress HEENT: ?Moist mucous membranes Eyes: ?PERRL, EOMI Neck: ?Supple, nontender Chest: ?Diffuse chest wall tenderness to palpation. No overlying skin changes. No crepitance. Respiratory: ?Lungs clear to auscultation, no increased work of breathing Cardio: ?Regular rate and rhythm, no murmur, 2+ radial and DP pulses symmetrically GI: ?Soft, nondistended, nontender Back: ?Normal range of motion, nontender Skin: ?No rash, no lesions Neuro: ?Alert and oriented to person, place and time, moves all 4 extremities, no focal deficits Extremities: ?No swelling or tenderness, full range of motion Psych: ?Calm, alert and cooperative, appropriate behavior Course Course Course Narrative: Patient re-evaluated and at 17:00 has significant improvement in her symptoms. Given her unremarkable workup and low risk for other dangerous etiologies of chest discomfort, the patient will be discharged to home with recommendations to continue ibuprofen and acetaminophen and return with any worsening symptoms. Medications Administered Discontinued Medications Generic Name Dose Route Start Last Admin Trade Name Meaghan PRN Reason Stop Dose Admin Ketorolac Tromethamine 15 mg 03/02/24 15:56 03/02/24 16:33 Ketorolac Tromethamine 15 Mg/Ml Vial IVPUSH 03/02/24 15:57 15 mg ONCE ONE Administration Medical Decision Making Medical Decision Making [facility] Narrative: Patient presenting with chest tightness. She does have reproducible chest wall tenderness. This is in the setting of COVID-19. It is unlikely the patient has ACS today but she does have risk factors including smoking and autoimmune disease. Her symptoms are exertional as well. We will further evaluate with basic labs and troponin. The chest pain has been ongoing for the past 3 days and if a single troponin is unremarkable, no further testing is required. I performed a bedside pocus which showed no pericardial effusion as pericarditis/myocarditis was also on the differential. There are no signs of right heart strain and the patient has no notable wall motion abnormalities. Her ECG is nonischemic and shows no overt findings of pericarditis. Differential also includes costochondritis with reproducible symptoms. This is much more likely. Patient does not have any concerning findings for bacterial pneumonia but we will screen with a chest x-ray. We will treat her symptoms with IV ketorolac. I do not suspect PE. Patient is low risk per Wells criteria and has no other associated symptoms that make this a concern to further evaluate. I also do not suspect other dangerous etiology of chest pain such as esophageal rupture or thoracic aneurysm or dissection. Admission/Observation Consideration of admission/observation: Escalation of care including admission/observation considered Lab Data [facility] Lab Attestation statement: I reviewed the patient's lab results. Unremarkable troponin, CBC and BMP 03/02/24 16:29 03/02/24 16:29 Labs: Lab Results 03/02/24 Range/Units 16:29 WBC 8.8 (4.8-10.8) X10*3/uL RBC 4.13 L (4.20-5.50) X10*6/uL Hgb 13.9 (12.0-16.0) g/dl Hct 41.0 (37.0-47.0) % MCV 99.3 H (80.0-98.0) fL MCH 33.7 H (27.0-33.0) pg MCHC 33.9 (31.0-35.0) g/dl RDW 13.2 (11.0-16.0) % Plt Count 241 (160-400) X10*3/uL MPV 9.0 L (9.4-12.3) fL Immature Gran % (Auto) 0.2 (0.0-0.4) % Neut % (Auto) 49.7 (45-73) % Lymph % (Auto) 37.8 (20-40) % [place] % (Auto) 6.8 (2-11) % Eos % (Auto) 5.0 H (0-4) % Baso % (Auto) 0.5 (0-2) % Lymph # (Auto) 3.3 (1.2-4.9) X10*3/uL [place] # (Auto) 0.6 (0.1-1.2) X10*3/uL Eos # (Auto) 0.4 (0.0-0.4) X10*3/uL Baso # (Auto) 0.0 (0.0-0.2) X10*3/uL Abs Immat Gran (auto) 0.02 (0.00-0.03) X10*3/uL Absolute Neuts (auto) 4.4 (2.0-8.3) x10*3/uL Absolute Nucleated RBC 0.000 (0.0-0.012) X10*3/uL Nucleated RBC % (auto) 0.0 (0.0-0.2) /100WBC Sodium 140 (135-145) mmol/L Potassium 3.9 (3.3-5.1) mmol/L Chloride 108 (96-108) mmol/L Carbon Dioxide 26 (22-29) mmol/L Anion Gap 10 L (12-20) BUN 7 L (9-16) mg/dL Creatinine 0.61 (0.5-1.4) mg/dL Estim Creat Clear Calc 103.6 Estimated GFR > 60 Random Glucose 96 (60-115) mg/dL Calcium 8.9 (8.4-10.2) mg/dL Troponin I High Sens < 2.7 (<3.5-17.0) ng/L Independent Interpretation I performed an independent interpretation of an: EKG and Plain X-Ray (Chest x-ray per my independent interpretation shows no acute cardiopulmonary abnormalities.) Interpretation: Normal sinus rhythm at 86 beats per minute, normal axis, unremarkable intervals, no diagnostic ST wave abnormalities, normal R-wave progression, some baseline artifact. Compared to prior dated 04/24/2021 there are no significant changes. Radiology Impression Discussion of test interpretation with radiology: I have reviewed the radiologist's reading. Discharge Plan Discharge Clinical Impression: Anterior chest wall pain Patient Disposition: Home, Self-Care Instructions: Chest Wall Pain (ED) Additional Instructions: You have been evaluated in the emergency department for chest pain today.? Although it was determined that there was not an immediately life threatening cause for your chest pain, it is very important that you follow up with your primary care physician. For your pain you can try [id number] Lidoderm patches, place for 12 hours at a time and remove before the next day as well as ibuprofen 600 mg every 6 hours with food for the next 1-2 weeks and acetaminophen 500 mg every 8 hours. Please be aware that if your condition changes or worsens in any way while you are at home, you should return to the emergency department immediately for further care.? This is especially true for worsening / recurrent pain, shortness of breath, vomiting, sweating, palpitations, lightheadedness or passing out.? These may be signs of an emergency condition and you should call 911 if these symptoms occur. Thank you for choosing us for your care. Prescriptions: No Action escitalopram oxalate 20 mg tablet 20 mg PO DAILY carisoprodol 350 mg tablet 350 mg PO TID PRN zolpidem 10 mg tablet 10 mg PO BEDTIME PRN methotrexate sodium 2.5 mg tablet 15 mg PO QWEEK Magic Mouthwash Diphen/Lido/Antacid 1:1:1 240 mL suspension 5 ml PO Q6H PRN (Reason: pain) Qty: 240 0RF Rx Instructions: Lidocaine Viscous 2 % 80mL; diphenhydramine 12.5 mg/5 mL 80mL; aluminum-mag hydrox-simeth [id number]/5mL 80mL Stand Alone Forms: Work/School Release Interventions: ED Discharge Assessment Last Done: 03/02/24 18:15 Discharge Date/Time: 03/02/24 18:16 Print Language: Ethiopian
[2024-03-02 15:58] VITALS: BP 111/77; PULSE 79; RESP 18; TEMP 36.8; O2SAT 100
[2024-03-02 16:24] VITALS: BP 111/71; PULSE 79; RESP 18; TEMP 36.8; O2SAT 100
[2024-03-02] MEDS: Ketorolac Tromethamine 15 MG/ML VIAL IVPUSH (16:33)
[2024-03-02 16:34] LABS: MANUAL DIFF FLAG NO
[2024-03-02 16:41] LABS: Basophils Percent Auto 0.5 % (0-2); Eosinophils Absolute Auto 0.4 X10*3/uL (0.0-0.4); Hemoglobin 13.9 g/dl (12.0-16.0); Imm Gran Abs Auto 0.02 X10*3/uL (0.00-0.03); Imm Gran Pct Auto 0.2 % (0.0-0.4); Lymphocytes Absolute Auto 3.3 X10*3/uL (1.2-4.9); Lymphocytes Percent Auto 37.8 % (20-40); Mean Corpuscular HGB Conc 33.9 g/dl (31.0-35.0); Mean Corpuscular Hemoglobin 33.7 pg (27.0-33.0); Mean Corpuscular Volume 99.3 fL (80.0-98.0); Monocytes Absolute Auto 0.6 X10*3/uL (0.1-1.2); Monocytes Percent Auto 6.8 % (2-11); Neutrophils Absolute Auto 4.4 x10*3/uL (2.0-8.3); Neutrophils Percent Auto 49.7 % (45-73); Platelet Count 241 X10*3/uL (160-400); Red Blood Count 4.13 X10*6/uL (4.20-5.50); Red Cell Distribution Width 13.2 % (11.0-16.0); White Blood Count 8.8 X10*3/uL (4.8-10.8)
[2024-03-02 16:47] LABS: Anion Gap 10 (12-20); Blood Urea Nitrogen 7 mg/dL (9-16); Calcium 8.9 mg/dL (8.4-10.2); Carbon Dioxide 26 mmol/L (22-29); Chloride 108 mmol/L (96-108); Creatinine Clr Calc Pharmacy 103.6; Estimated Glomerular Filt Rate > 60; Glucose Random 96 mg/dL (60-115); Potassium 3.9 mmol/L (3.3-5.1); Sodium 140 mmol/L (135-145)
[2024-03-02 16:56] LABS: Troponin-I High Sensitivity < 2.7 ng/L (<3.5-17.0)
[2024-03-02 18:15] VITALS: BP 111/71; PULSE 79; RESP 18; TEMP 36.8; O2SAT 100
== END 2024-03-02 18:16 | disposition home or self-care (01) ==
PROVIDERS: Emergency Provider Emergency Medicine; PCP Nurse Practitioner Family
DX: R07.89 Other chest pain (principal); M35.9 Systemic involvement of connective tissue, unspecified; R05.9 Cough, unspecified; R06.02 Shortness of breath; F17.210 Nicotine dependence, cigarettes, uncomplicated; Z79.899 Other long term (current) drug therapy
CPT/HCPCS: 36415; 71046; 80048; 84484; 85025; 93005; 96374; 99284; J1885

== ENCOUNTER → 2024-03-02 14:17 | Outpatient (BNV) | payer OTHER, SELFPAY | PROVIDERS: Emergency Provider Emergency Medicine; PCP Nurse Practitioner Family; Visit Provider Internal Medicine | DX: R07.9 Chest pain, unspecified (principal) | CPT/HCPCS: 93010 ==

== ENCOUNTER → 2024-03-02 15:52 | Outpatient (BNV) | payer OTHER, SELFPAY | PROVIDERS: Emergency Provider Emergency Medicine; PCP Nurse Practitioner Family; Visit Provider Radiology Diagnostic Radiology | DX: R07.9 Chest pain, unspecified (principal) | CPT/HCPCS: 71046 ==

== ENCOUNTER 2024-03-30 16:53 | Emergency (ER) | payer OTHER, SELFPAY ==
--- NOTE | ~2024-03-30 | XR_ITS ---
CLINICAL HISTORY: fall, R foot pain 3 view right foot Comparison: None Findings: No fractures or dislocations. No significant loss of joint space, osteophytes, or erosions. No ankle effusion. No radiopaque foreign body. IMPRESSION: 1. No acute findings. This document has been electronically signed by: Ladonna Taylor MD on 03/30/2024 18:41:22
--- NOTE | ~2024-03-30 | XR_ITS ---
CLINICAL HISTORY: fall right ankle pain 3 view right ankle Comparison: None Findings: Mild soft tissue swelling over the lateral malleolus. Bones intact. No dislocations. No significant loss of joint space, osteophytes, or erosions. No ankle effusion. No radiopaque foreign body. IMPRESSION: 1. No acute findings. This document has been electronically signed by: Ladonna Taylor MD on 03/30/2024 18:40:19
[2024-03-30 17:34] VITALS: BP 110/70; PULSE 94; RESP 16; TEMP 36.7; O2SAT 95; BMI 21.3
--- NOTE | 2024-03-30 19:22 | ED_ITS ---
HPI - General Adult General Chief complaint: Extremity Injury, Lower Stated complaint: Fall/ R foot pain Time Seen by Provider: 03/30/24 19:21 Source: patient Mode of arrival: wheelchair Limitations: no limitations History of Present Illness ED Provider: Joy Schaffer PA-C HPI narrative: Patient is a 48 year old assigned female at with no reported medical history presenting to the emergency department today with right foot and ankle pain. Patient states that she was at work when she injured her right foot / ankle. Patient denies any head strike or loss of consciousness with the incident. Patient denies any dizziness, lightheadedness, abdominal pain, nausea, vomiting, fever, chills, blurry vision, double vision, loss of vision, chest pain, difficulty breathing, shortness of breath, back pain, night sweats, pain with urination, increased urinary frequency, increased urinary urgency, blood in her urine or stool, syncope or a near syncopal episode, bowel incontinence, bladder incontinence, or any other complaints at this time. Location: right and lower extremity Relieving factors: immobilization Exacerbating factors: movement Associated symptoms: denies other symptoms Treatments prior to arrival: none Related Data Home Medications ?Medication ?Instructions ?Recorded ?Confirmed carisoprodol 350 mg tablet 350 mg PO TID PRN 08/26/23 08/26/23 escitalopram oxalate 20 mg tablet 20 mg PO DAILY 08/26/23 08/26/23 methotrexate sodium 2.5 mg tablet 15 mg PO QWEEK 08/26/23 08/26/23 zolpidem 10 mg tablet 10 mg PO BEDTIME PRN 08/26/23 08/26/23 Previous Rx's ?Medication ?Instructions ?Recorded Magic Mouthwash 5 ml PO Q6H PRN pain #240 mL 08/26/23 Diphen/Lido/Antacid 1:1:1 240 mL suspension Allergies Allergy/AdvReac Type Severity Reaction Status Date / Time Penicillins [PENICILLINS] Allergy Intermediate HIVES/VOMIT Verified 03/30/24 17:38 ING sulfamethoxazole Allergy Intermediate BLISTERS Verified 03/30/24 17:38 [From BACTRIM] trimethoprim [From BACTRIM] Allergy Intermediate BLISTERS Verified 03/30/24 17:38 ciprofloxacin [Cipro] Allergy Unknown Hives Verified 03/30/24 17:38 penicillin V Allergy Unknown Hives Verified 03/30/24 17:38 Sulfa (Sulfonamide Allergy Unknown HIVES Verified 03/30/24 17:38 Antibiotics) [SULFA (SULFONAMIDE ANTIBIOTICS)] From CIPRO Allergy Intermediate HIVES Uncoded 11/07/23 08:43 Review of Systems Constitutional: Constitutional: Reports no additional constitutional complaints, Denies chills, Denies fever(s) and Denies night sweats Eyes: Eyes: Reports no additional eye complaints, Denies blurry vision, Denies change in vision, Denies diplopia, Denies eye discharge, Denies loss of vision and Denies eye pain ENT: Denies dizziness Cardiovascular: Cardiovascular: Reports no additional cardiovascular complaints, Denies chest pain, Denies lightheadedness, Denies Loss of Consciousness and Denies dyspnea Respiratory: Respiratory: Reports no additional respiratory complaints and Denies dyspnea Gastrointestinal: Gastrointestinal: Reports no additional gastrointestinal complaints, Denies abdominal pain, Denies melena, Denies hematochezia, Denies change in bowel habits and Denies change in stool character Genitourinary: Genitourinary: Denies hematuria, Denies urinary frequency, Denies dysuria, Denies urinary incontinence, Denies urinary hesitancy and Denies urinary urgency Musculoskeletal: Musculoskeletal: Reports no additional musculoskeletal complaints, Denies numbness and Denies tingling Comments: right foot and ankle injury / pain Neurologic: Denies dizziness, Denies loss of vision, Denies numbness and Denies tingling Psychiatric: Psychiatric: Reports no additional psychiatric complaints Endocrine: Endocrine: Reports no additional endocrine complaints Hematologic/Lymphatic: Hematologic/Lymphatic: Reports no additional hematologic/lymphatic complaints Allergic/Immunologic: Allergic/Immunologic: Reports no additional allergic/immunologic complaints [facility] Past Medical History Attestation statement: The following information was validated with the patient. Source: old records reviewed and nursing notes reviewed Medical History PLEVA (pityriasis lichenoides et varioliformis acuta) Gallstone Social History Social History Patient Tobacco Use Status: Never used Tobacco Physical Exam ED Vital Signs: Vital Signs - 24 hr 03/30/24 17:34 03/30/24 19:50 03/30/24 19:52 Temperature 98.1 F 98.5 F 98.5 F Pulse Rate 94 84 84 Respiratory Rate 16 16 16 Blood Pressure 110/70 143/63 H 143/63 H Pulse Oximetry 95 98 98 Oxygen Delivery Method Room Air Room Air Room Air BMI result Body Mass Index 21.3 Const General: cooperative, no acute distress, alert and awake Nutritional Appearance: well nourished Orientation/consciousness: patient oriented x3 Limitations: no limitations HENMT Head: Yes normal to inspection and Yes atraumatic Ears: hearing grossly normal bilaterally and external ears normal General nose exam: Normal external nose present, no nasal discharge noted and no epistaxis Face and sinus: Yes normal facial exam, No abrasion and No laceration Mouth: Normal oral and palatal mucosa present, no drooling and no muffled voice Eyes General: appearance normal, both eyes and all related structures Periorbital: periorbital findings normal Eyelids: Yes eyelids normal Conjunctivae: conjunctivae normal Pupils: Equal, round and reactive pupils present EOM: EOMs intact bilaterally Neck Neck: Yes normal visual inspection, Yes full ROM and Yes no lymphadenopathy Chest Chest palpation & inspection: normal inspection of the chest Resp Effort & Inspection: normal respiratory effort and able to speak in complete sentences GI Inspection: Yes normal to inspection Neuro General: patient oriented x3, moves all extremities and CN's II-XI intact bilaterally Cranial nerves: Yes Equal, round and reactive pupils present Cognition (Neuro): normal cognition Extrem Other: limited range of motion of the right ankle secondary to pain General: Yes normal to inspection and Yes capillary refill normal Psych Appearance: grossly normal Mental Status: mental status grossly normal Affect: normal affect Attitude: cooperative Thought process: Normal thought process present Thought content: Normal thought content present Insight: Good insight present (Psych) Procedures Orthopedic Splinting/Casting Injury #1: Side: right Lower Extremity Injury Location: ankle Lower Extremity Immobilizer: boot orthosis Other Orthopedic Equipment: crutches Medical Decision Making Medical Decision Making MDM Narrative: Patient is a 48 year old assigned female at with no reported medical history presenting to the emergency department today with right foot and ankle pain. Patient's physical exam showed limited ROM of the right ankle secondary to pain but otherwise unremarkable. Patient's right foot and ankle x-rays showed no acute ubaldo process. I explained my physical exam findings as well as all test results to the patient. I answered all questions asked by the patient. Patient's right foot and ankle were placed in a walking boot, without incident. Patient's PMS was intact prior to and after boot placement. Patient was given crutches with crutch instructions. I stressed the importance of the patient taking her medication as directed (either prescribed or as the over the counter packaging recommends). I stressed the importance of the patient following up with her primary care provider, given this was a work place injury - [facility], and given her exam findings - an orthopedic provider. I stressed the importance of the patient returning to the emergency department immediately if her symptoms were to worsen or if she were to develop any dizziness, shortness of breath, difficulty breathing, chest pain, blurry vision, loss of vision, nausea, vomiting, abdominal pain, fever, chills, back pain, or any other complaints. Patient verbalized agreement and understanding with this treatment plan and discharge. Differential Diagnosis Differential Diagnoses: The differential diagnosis associated with the presentation includes Ankle fracture Ankle sprain Ankle strain Foot fracture Foot strain Foot wesley Admission/Observation Consideration of admission/observation: Escalation of care including admission/observation considered Patient would have been admitted to the hospital had her work up had any findings where hospital admission was appropriate and her clinical presentation warranted hospital admission. Independent Interpretation I performed an independent interpretation of an: Plain X-Ray Interpretation: My interpretation is in agreement with the radiologist's impression of these imaging studies. CLINICAL HISTORY: fall, R foot pain 3 view right foot Comparison: None Findings: No fractures or dislocations. No significant loss of joint space, osteophytes, or erosions. No ankle effusion. No radiopaque foreign body. IMPRESSION: 1. No acute findings. This document has been electronically signed by: Ladonna Taylor MD on 03/30/2024 18:41:22 Dictated By: Ladonna Taylor MD Signed By: Electronically signed by Ladonna Taylor MD 03/30/24 1841 CLINICAL HISTORY: fall right ankle pain 3 view right ankle Comparison: None Findings: Mild soft tissue swelling over the lateral malleolus. Bones intact. No dislocations. No significant loss of joint space, osteophytes, or erosions. No ankle effusion. No radiopaque foreign body. IMPRESSION: 1. No acute findings. This document has been electronically signed by: Ladonna Taylor MD on 03/30/2024 18:40:19 Dictated By: Ladonna Taylor MD Signed By: Electronically signed by Ladonna Taylor MD 03/30/24 1840 Radiology Impression Discussion of test interpretation with radiology: I have reviewed the radiologist's reading. Discharge Plan Discharge Clinical Impression: Ankle sprain Patient Disposition: Home, Self-Care Instructions: Ankle Sprain (DC) Additional Instructions: Your x-rays today did not show any break / fracture however, given your examination, I'm concerned for ligament injury. You should follow up with an orthopedic provider. Given this was a work place injury - you should follow up with [facility]. Follow up with your primary care provider. Return to the emergency department immediately if your symptoms worsen or if you develop any dizziness, shortness of breath, difficulty breathing, chest pain, blurry vision, loss of vision, nausea, vomiting, abdominal pain, fever, chills, back pain, or any other complaints. Prescriptions: No Action escitalopram oxalate 20 mg tablet 20 mg PO DAILY carisoprodol 350 mg tablet 350 mg PO TID PRN zolpidem 10 mg tablet 10 mg PO BEDTIME PRN methotrexate sodium 2.5 mg tablet 15 mg PO QWEEK Magic Mouthwash Diphen/Lido/Antacid 1:1:1 240 mL suspension 5 ml PO Q6H PRN (Reason: pain) Qty: 240 0RF Rx Instructions: Lidocaine Viscous 2 % 80mL; diphenhydramine 12.5 mg/5 mL 80mL; aluminum-mag hydrox-simeth [id number]/5mL 80mL [place] [facility] [Provider Group] (Call to establish and follow up with an orthopedic provider.) Deanne Lawrenec, TOSHA [Primary Care Provider] - [facility] [Provider Group] (Given this was a work place injury, you should call to establish and follow up with [facility].) Stand Alone Forms: Work/School Release Interventions: ED Discharge Assessment Last Done: 03/30/24 19:52 Discharge Date/Time: 03/30/24 19:52 Print Language: Irish
[2024-03-30 19:50] VITALS: BP 143/63; PULSE 84; RESP 16; TEMP 36.9; O2SAT 98
[2024-03-30 19:52] VITALS: BP 143/63; PULSE 84; RESP 16; TEMP 36.9; O2SAT 98
== END 2024-03-30 19:52 | disposition home or self-care (01) ==
PROVIDERS: Emergency Provider Internal Medicine; PCP Nurse Practitioner Family
DX: S93.401A Sprain of unspecified ligament of right ankle, initial encounter (principal); M79.671 Pain in right foot; X58.XXXA Exposure to other specified factors, initial encounter; Y93.9 Activity, unspecified; Y92.9 Unspecified place or not applicable; Y99.0 Civilian activity done for income or pay; Z79.899 Other long term (current) drug therapy
CPT/HCPCS: 29515; 73610; 73630; 99283; 99284

== ENCOUNTER → 2024-03-30 17:37 | Outpatient (BNV) | payer OTHER, SELFPAY | PROVIDERS: PCP Nurse Practitioner Family; Visit Provider Radiology Diagnostic Radiology | DX: M25.571 Pain in right ankle and joints of right foot (principal) | CPT/HCPCS: 73610; 73630 ==

== ENCOUNTER 2024-04-21 09:46 | Outpatient (REF) | payer OTHER, SELFPAY ==
--- NOTE | ~2024-04-21 | XR_ITS ---
EXAMINATION: XR ANKLE 3 OR MORE VIEWS RIGHT HISTORY: M25.571 - Pain in right ankle and joints of right foot COMPARISON: Comparison is made with the prior examination dated 03/30/2024. FINDINGS: Three views of the right ankle are submitted. Osseous mineralization is normal. There is no fracture or dislocation. The joint spaces are preserved. The soft tissues are unremarkable. XR/XR ankle RT min 3V IMPRESSION: Unremarkable examination of the right ankle. Electronically signed by: Jacinto Albert MD 04/22/2024 07:47 AM EST
--- OUTSIDE RECORDS SUMMARY | 2024-04-21 11:24 | XMS_ITS | Data Portability ---
Author Organization [facility], [address] Address [address] [place] [address] Care Team Providers Care Finance Lecturer Name Role Phone DENIS AUGUSTINE Primary Care Provider Assessment No assessment recorded. Plan of Treatment Reminders Order Date Submit Date Provider Last Modified By Organization Details Last Modified Time Details Appointments None recorded. Lab microorgani sm identificat ion, unspecified specimen 2022 023 [place] [facility], [address] [place] [address], [place], [address], 14:11:37 Referral None recorded. Procedures None recorded. Surgeries None recorded. Imaging None recorded. Medication Orders doxycycline hyclate 100 mg capsule 2022 023 [email or web address] [id number], [address] [place], [address], 19:30:29 Patient TargetsNo targets recorded. Patient Instructions Encounter Date Encounter Id Patient Instructions Last Modified By Organization Details Last Modified Time 09/12/2022 [id number] Acute Sinusitis: Care Instructions [email or web address] Not available 09/12/2022 19:11:52 Reason for Referral None Reported. Results Created Date Observation Date Name Description Value Unit Range Abnormal Flag Note LastModifiedBy Organization Detail LastModifiedTime 09/13/1909/18/2022 AEROB IC BACTE RIAL CULTU RE aerobic bacterial culture FINAL REPORT Not Available [facility] ([facility]) [address] [facility], [place], [address], 09/18/2022 16:12:21 09/13/19 23 09/18/2022 AEROB IC BACTE RIAL CULTU RE result 1 COMMEN T Routi ne respi rator y michelle Not Available [facility] ([facility]) [address], [place], [address], 09/18/2022 16:12:21 Result Notes None recorded. 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 Procedures Surgical History Date Name Laterality Status Provider Name and Address Organization Details Recorded Time hysterectomy completed Summer Hi Hat PA - [facility] 09/12/2022 19:10:25 cholecystectomy completed Summer Johny P A - [facility] 09/12/2022 19:10:29 Imaging Results None recorded. Procedure Notes None recorded. Medical Equipment None Reported. Allergies Allergen ID Allergen Name Allergen Category Reaction Reaction Severity Criticality Documentation Date Start Date Code Code System Note Provider Name and Address Organization Details Recorded Time 465377 Product containin g penicilli n (product) medicatio n anaphylax is Not available Not available 09/12/2022 01161 8001 SNOMED Summer Hi Hat null, PA - [facility] 19:07:10 098615 Bactrim medicatio n Not available Not available Not available 09/12/2022 79859 9 RxNorm hives Summer Hi Hat null, PA - [facility] 19:08:06 606224 Substance with sulfonami de structure and antibacte rial mechanism of action (substanc e) medicatio n other Not available Not available 09/12/2022 94487 8003 SNOMED Blist er Summer Johny null, PA - [facility] 3 19:07:51 418395 Cipro medicatio n Not available Not available Not available 09/12/202222788 3 RxNorm hives Summer cruz PA - [facility] 3 19:08:00 Medications Name Sig Start Date Stop Date Status Note LastModified by Organization Details LastModified Time doxycycline hyclate 100 mg capsule Take 1 capsule twice a day by oral route for 10 days. 2022 active Not Available Not Available Not Avai lable methotrexate active Not Available Not Available Not Available Ambien active Not Available Not Availa ble Not Available Lexapro active Not Available Not Avail able Not Available Vitals Date Recorded Oxygen saturation Oxygen saturation in Arterial blood by Pulse oximetry Heart rate Respiratory rate Body temperature Body weight Body mass index (BMI) Body height Pain severity - 0-10 verbal numeric rating [Score] - Reported Systolic blood pressure Diastolic blood pressure Provider Name and Address Organization Details Last Updated DateTime 96 % 96 % 87 /min 18 /min 98.3 [degF] 48710.9 7 g 22.5 kg/m2 165.1 cm 9 131 mm[Hg] 83 mm[Hg] Summer Mcclain PA - [facility] 19:06:49 Social History Question Answer Notes LastModified by Organizat ion Details LastModified Time Tobacco Smoking Status Never Smoker Summer cruz PA - [facility] 09/12/2022 19:10:14 What Is Your Level Of Alcohol Consumption? None Information not available 09/12/2022 Have You Had Direct Contact, Or Contact During Intimacy, With Monkeypox Rash, Scabs, Or Body Fluids From A Person With Monkeypox? No Information not available 09/12/2022 Do You Use Any Illicit Or Recreational Drugs? No Information not available 09/12/2022 Have You Recently Traveled Abroad? No Information not available 09/12/2022 Do You Or Have You Ever Used Any Other Forms Of Tobacco Or Nicotine? No Information not available 09/12/2022 Sex: Unknown Functional Status None recorded. Mental Status None recorded. Family History Relationship Description Onset Age of this Age Resolved Age Notes LastModified by Organization Details LastModified Time Father No current problems or disability Not available 09/12 19:10:08 Mother No current problems or disability Not available 09/12 19:10:08 Medical History No medical history recorded. Gynecological History Statement/Question Response Is there any chance of ? No LMP N/A Obstetrics History GPAL:G 0 P 0 0 0 0 Immunizations Vaccine Type Date Status Note Provider Nam e and Address Organization Details Recorded Time Influenza, split virus, quadrivalent, PF 12/14/2020 completed TREMAYNE Jeffers - [facility] 09/12/2022 19:04:20 Past Encounters Encounter ID Performer Location Encounter Start Date Encounter Closed Date Diagnosis/Indication Diagnosis SNOMED-CT Code Diagnosis ICD10 Code Diagnosis Note [id number] Alen_[facility] [address] [place] [address] 10/21/2016 17:27:05 10/21/2016 18:09:01 [id number] [facility] [address] [place] [phone] 06/01/2017 18:47:16 06/01/2017 19:46:15 [id number] [address] [address] [place] [address] 09/03/2016 19:21:44 09/03/2016 20:13:21 [id number] [address] [address] [place] [address] 08/16/2015 19:20:56 08/16/2015 20:32:38 [id number] Hayes Jimenez MD [address] [place] [address] 09/12/2022 18:59:30 09/12/2022 19:42:37 Acute sinusitis 41144553 J01.90 - Use the medication s prescribed .- Decongesta nts if tolerated. - Recommend recheck if fever develops or no improvemen t in 5-7 days.- Use saline nasal spray or neti-pot flushes once to twice a day to loosen mucus in sinuses.-. Use a cool mist humidifier in the room that you sleep to add moisture to the air, which should soothe the airways and help loosen any mucus that may be present.-C all 911 or proceed to nearest Emergency Department if you develop shortness of breath, chest pain, severe headache or other symptoms that concern you. Health Concerns Section Related Observation LastModified by Organization Detai ls LastModified Time None Recorded Concern Status LastModified by Organization Details LastModified Time None Recorded Advance Directives Directive None Recorded Payers Encounter Date Sequence Insurance Name Policy Number Policy Fields Covered Member ID Fields Member ID Guarantor Name 08/16/2015 1 [employer] [id number] Nazia King Casillas [id number] Nazia Casillas 09/03/2016 1 [employer] [id number] Nazia King Casillas [id number] Nazia Casillas 10/21/2016 1 [employer] [id number] Nazia King Casillas [id number] Nazia Casillas 06/01/2017 1 [employer] [id number] Nazia King Casillas [id number] Nazia Casillas 09/12/2022 1 [facility] [id number] Nazia Casillas [id number] Nazia Casillas Notes Date Note Type Note Provider Name and Address Organization Details Recorded Time 09/12/2022 text/html Sinus Complaints UCReported bypatient.Location:s inus pain;facial pain;pain in the cheek;sinus pressure; right side Associated Symptoms:nasal discharge from both nostrils;nasal passage blockage bilaterally;ear fullness Onset/Timing:initial ly started 4weeks ago; progressively worse over last 2weeks Quality:worsening;th robbing;purulent Duration:long standing Severity:severe Context:no recent upper respiratory infection; no recent sick contacts; not worse with seasonal allergen exposure Prior Treatmentnasal steroids:; oral steroids:Notes:Not improved after completion of steroids. Pain going on for 4 weeks. Severe and radiates from right nostril up to forhead and into the right ear. Feels that the nose is swollen visbly Hayes Jimenez MD [address] [place], [place] [address], [address], PA - [facility] 09/12/2022 19:34:54 OBGyn Episode No OBEpisode recorded.
== END 2024-04-21 09:47 | disposition home or self-care (01) ==
LOC: HO.HOSX 09:46
DX: M25.571 Pain in right ankle and joints of right foot (principal)
CPT/HCPCS: 73610

== ENCOUNTER 2024-04-21 14:34 | Outpatient (AMB) | payer OTHER, SELFPAY ==
--- NOTE | 2024-04-21 14:52 | A.OFFVIS_ITS ---
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 Patient reports that she injured her ankle while at work on 03/30/24. She was seen at [facility] the day of the injury. Patient reports that she stood up from her desk, went to walk to the printer, when she went to put weight on her right leg the leg was asleep she ended up setting on the lateral aspect of the right ankle. She had immediate onset of pain, swelling and bruising. She is in a short boot and has been weight bearing as tolerated. She has numbness and tingling fluctuating through mostly the small toe but radiates to the rest of the toes. Her pain is described as a shooting pain in the lateral aspect of the ankle and radiates to the lateral aspect of the foot. She takes Ibuprofen 800mg - which is upsetting her stomach and only mildly relieving her pain. 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 Patient reports that she injured her ankle while at work on 03/30/24. She was seen at [facility] the day of the injury. Patient reports that she stood up from her desk, went to walk to the printer, when she went to put weight on her right leg the leg was asleep she ended up setting on the lateral aspect of the right ankle. She had immediate onset of pain, swelling and bruising. She is in a short boot and has been weight bearing as tolerated. She has numbness and tingling fluctuating through mostly the small toe but radiates to the rest of the toes. Her pain is described as a shooting pain in the lateral aspect of the ankle and radiates to the lateral aspect of the foot. She takes Ibuprofen 800mg - which is upsetting her stomach and only mildly relieving her pain. 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 [facility] Medical History PLEVA (pityriasis lichenoides et varioliformis acuta) Gallstone Social History Patient Tobacco Use Status: Never used Tobacco Review of Systems Const All systems reviewed & are unremarkable except as noted in HPI and below Physical Exam Extrem Other: Patient's right ankle slightly edematous in the lateral aspect of the right ankle, otherwise normal to inspection No erythema, ecchymosis noted No lacerations, abrasions, open areas No evidence of infection Patient reports lpsi-ag-[id number] tenderness to palpation of the right ankle, particularly just distal to the lateral malleolus No tenderness to palpation of the syndesmosis of the right ankle Patient was able to dorsiflex and plantar flex the right ankle Patient does experience some discomfort when doing so Distal sensation intact Capillary refill brisk Results Reviewed Results Reviewed: X-rays obtained in the office today and independently reviewed by me, Ruy Rodríguez PA-C, demonstrate no fracture or acute bony abnormality of the right foot or ankle with intact ankle mortise. Assessment & Plan Assessment & Plan (1) Moderate right ankle sprain: Code(s): S93.401A - Sprain of unspecified ligament of right ankle, initial encounter Category: Medical Plan 1. Right ankle sprain Date of injury on 03/30/2024 Patient was educated about this injury Patient was educated about the typical recovery course At this time, patient was informed that she can continue to weight bear on the right foot and ankle, but should be doing so in a walking boot patient was educated on the potential long-term recovery necessary for significant ankle sprains Patient will follow-up in 2-3 weeks for reassessment, sooner with any acute concerns. Anticipate physical therapy referral at that time Orders: Orders XR ankle RT min 3V 04/21/24 M25.571 - Pain in right ankle and joints of right foot Coding Level of Care Code New Pt Level 3 (17982) Diagnoses Moderate right ankle sprain S93.401A
== END 2024-04-21 15:18 | disposition home or self-care (01) ==
PROVIDERS: PCP Nurse Practitioner Family
DX: S93.401A Sprain of unspecified ligament of right ankle, initial encounter (principal)
CPT/HCPCS: 99203

== ENCOUNTER → 2024-04-21 14:43 | Outpatient (BNV) | payer OTHER, SELFPAY | PROVIDERS: Visit Provider Radiology Diagnostic Radiology | DX: M25.571 Pain in right ankle and joints of right foot (principal) | CPT/HCPCS: 73610 ==

== ENCOUNTER 2024-05-12 14:48 | Outpatient (AMB) | payer OTHER, SELFPAY ==
--- NOTE | 2024-05-12 14:53 | MHC.OFFVIS ---
Vital Signs 05/12/24 14:54 Height 5 ft 8 in Weight 140 lb BMI 21.3 Intake Visit Reasons: OV- RT ankle sprain DOI 03/30/24 with xrays Intake Note: Nazia is a 48 year old female who presents today for a follow up visit of her right ankle sprain DOI: 03/30/24. At her last visit on 04/21/24 patient was advised she can bear weight on her right foot and ankle however she must do so with a walking boot. Patient reports that her pain has improved a lot since her last visit. She has no concerns today. Allergies Penicillins [PENICILLINS] Allergy (Intermediate, Verified 05/12/24 14:55) HIVES/VOMITING sulfamethoxazole [From BACTRIM] Allergy (Intermediate, Verified 05/12/24 14:55) BLISTERS trimethoprim [From BACTRIM] Allergy (Intermediate, Verified 05/12/24 14:55) BLISTERS ciprofloxacin [Cipro] Allergy (Unknown, Verified 05/12/24 14:55) Hives penicillin V Allergy (Unknown, Verified 05/12/24 14:55) Hives Sulfa (Sulfonamide Antibiotics) [SULFA (SULFONAMIDE ANTIBIOTICS)] Allergy (Unknown, Verified 05/12/24 14:55) HIVES From CIPRO Allergy (Intermediate, Uncoded 05/12/24 14:55) HIVES HPI HPI OV- RT ankle sprain DOI 03/30/24 with xrays: Details: Nazia is a 48 year old female who presents today for a follow up visit of her right ankle sprain DOI: 03/30/24. At her last visit on 04/21/24 patient was advised she can bear weight on her right foot and ankle however she must do so with a walking boot. Patient reports that her pain has improved a lot since her last visit. She has no concerns today. [facility] Medical History PLEVA (pityriasis lichenoides et varioliformis acuta) Gallstone Social History Patient Tobacco Use Status: Never used Tobacco Review of Systems Const All systems reviewed & are unremarkable except as noted in HPI and below Physical Exam Vital Signs: BMI result Body Mass Index 21.3 Extrem Other: Patient's right ankle normal to inspection No erythema, ecchymosis noted No lacerations, abrasions, open areas No evidence of infection Patient reports rqtu-sa-cqsvrbfa tenderness to palpation of the right ankle, particularly just distal to the lateral malleolus No tenderness to palpation of the syndesmosis of the right ankle Patient was able to dorsiflex and plantar flex the right ankle Patient does experience some discomfort when doing so Distal sensation intact Capillary refill brisk Assessment & Plan Assessment & Plan (1) Moderate right ankle sprain: Code(s): S93.401A - Sprain of unspecified ligament of right ankle, initial encounter Category: Medical Plan 1. Right ankle sprain Date of injury on 03/30/2024 Patient was educated about this injury Patient was educated about the typical recovery course At this time, patient was informed that she can continue to weight bear on the right foot and ankle, but should wear supportive footwear when doing so Patient was also referred to physical therapy for treatment of ankle sprain patient was educated on the potential long-term recovery necessary for significant ankle sprains Patient will follow-up as needed with any acute concerns Orders: Orders PT Evaluation and Treatment Today S93.401A - Sprain of unspecified ligament of right ankle, initial encounter Coding Level of Care Code Est Pt Level 3 (71663) Diagnoses Moderate right ankle sprain S93.401A
[2024-05-12 14:54] VITALS: BMI 21.3
== END 2024-05-12 15:03 | disposition home or self-care (01) ==
LOC: HO.HOS 14:49
PROVIDERS: PCP Nurse Practitioner Family
DX: S93.401A Sprain of unspecified ligament of right ankle, initial encounter (principal)
CPT/HCPCS: 99213

== ENCOUNTER → 2024-05-12 14:48 | Outpatient (BNVA) | payer OTHER, SELFPAY | PROVIDERS: PCP Nurse Practitioner Family ==

== ENCOUNTER 2024-11-17 11:50 | Outpatient (AMB) | payer OTHER, SELFPAY ==
[2024-11-17 11:55] VITALS: BP 108/62; PULSE 83; TEMP 36.6; O2SAT 98; BMI 20.2
--- NOTE | 2024-11-17 11:55 | AM.OFFWIN_ITS ---
Intake Vital Signs 11/17/24 11:55 Height 5 ft 8 in Weight 133 lb BMI 20.2 BP 108/62 Blood Pressure Location Rt brachial Position Sitting Pulse 83 Pulse Source Pulse Oximeter Temp 97.9 F Temp Source Oral Pulse Oximetry (%) 98 Oxygen Delivery Method Room Air Intake Visit Reasons: EP-lt kidney pain Intake Note: pt presents with left flank pain/pressure for almost a week Patient Tobacco Use Status: Never used Tobacco Allergies Penicillins (PENICILLINS) Allergy (Intermediate, Verified 11/17/24 12:01) HIVES/VOMITING sulfamethoxazole (From BACTRIM) Allergy (Intermediate, Verified 11/17/24 12:01) BLISTERS trimethoprim (From BACTRIM) Allergy (Intermediate, Verified 11/17/24 12:01) BLISTERS ciprofloxacin (Cipro) Allergy (Unknown, Verified 11/17/24 12:01) Hives penicillin V Allergy (Unknown, Verified 11/17/24 12:01) Hives Sulfa (Sulfonamide Antibiotics) (SULFA (SULFONAMIDE ANTIBIOTICS)) Allergy (Unknown, Verified 11/17/24 12:01) HIVES From CIPRO Allergy (Intermediate, Uncoded 05/12/24 14:55) HIVES Medication List - Last Reconciled 11/17/24 by Yaneth Arthur MD carisoprodol 350 mg PO TID PRN escitalopram oxalate 20 mg PO DAILY methotrexate sodium 15 mg PO QWEEK zolpidem 10 mg PO BEDTIME PRN Do you need a note to return to daycare/school/sports/work: No HPI EP-lt kidney pain HPI Details History of Present Illness The patient is a 49-year-old female presenting with left flank pain. Left flank pain: - The patient reports a left-sided const ant throbbing ache, which has worsened over time. - Symptoms commenced following a recent episode of urinary tract infection (UTI) treated with Macrobid for five days. - The patient completed the course, but the pain persists. - Identifies family history of kidney st ones as both mother and father have experienced them. -there is presence of blood in urine, bu t no indication of an active infection. UA done today Surgical History: - Cholecystectomy due to gallstones. Diagnostic Results: - Urinalysis shows no infection but pres ence of blood. Problem List - Suspected kidney stones - Blood in urine - Recent urinary tract infection Patient Instructions - Reach out to primary care to have an u ltrasound ordered. - Manage pain with prescribed Percocet. Sent to pharmacy - Take another course of antibiotics for possible kidney stone predisposing to infection. - Increase fluid intake. Proceed to emergency room if pain become worse Review of Systems - General: No fever no chills - Neurological: No headaches no dizziness - Ear nose throat: No sore throat no hearing difficulty no ear pain - Cardiovascular: No syncope, no chest pain, no palpitations - Gastrointestinal: No nausea vomiting or diarrhea Physical Exam General: No acute distress HEENT: No acute findings Neck: Supple Respiratory system: Able to talk in full sentences, no audible wheeze Gastrointestinal: Left flank pain Extremities: No swelling OVERWEAVER: Alert awake oriented x3 motor intact Skin: Normal turgor [facility] Medical History PLEVA (pityriasis lichenoides et varioliformis acuta) Gallstone Social History Patient Tobacco Use Status: Never used Tobacco Physical Exam Vital Signs: Last Vital Signs Temp 97.9 F 11/17/24 11:55 Pulse 83 11/17/24 11:55 BP 108/62 11/17/24 11:55 Pulse Ox 98 11/17/24 11:55 Oxygen Delivery Method Room Air 11/17/24 11:55 BMI result Body Mass Index 20.2 Assessment & Plan Assessment & Plan (1) Acute left flank pain: Code(s): R10.9 - Unspecified abdominal pain (2) Blood in urine: Code(s): R31.9 - Hematuria, unspecified Qualifiers: Hematuria type: other microscopic Qualified Code(s): R31.29 - Other microscopic hematuria (3) Family history of renal stone: Code(s): Z84.1 - Family history of disorders of kidney and ureter Plan History of Present Illness The patient is a 49-year-old female presenting with left flank pain. Left flank pain: - The patient reports a left-sided constant throbbing ache, which has worsened over time. - Symptoms commenced following a recent episode of urinary tract infection (UTI) treated with Macrobid for five days. - The patient completed the course, but the pain persists. - Identifies family history of kidney stones as both mother and father have experienced them. -there is presence of blood in urine, but no indication of an active infection. UA done today Surgical History: - Cholecystectomy due to gallstones. Diagnostic Results: - Urinalysis shows no infection but presence of blood. Problem List - Suspected kidney stones - Blood in urine - Recent urinary tract infection Patient Instructions - Reach out to primary care to have an ultrasound ordered. - Manage pain with prescribed Percocet. Sent to pharmacy - Take another course of antibiotics for possible kidney stone predisposing to infection. - Increase fluid intake. Proceed to emergency room if pain become worse Medications: New nitrofurantoin monohyd/m-cryst 100 mg (Macrobid) must administer with a meal/food 100 mg PO Q12H 10 caps 0RF 5 days oxycodone-acetaminophen 5-325 mg (Percocet) Partial Fill upon patient request. 1 tab PO Q8H PRN 15 tabs 0RF pain 5 days Coding Level of Care Code Est Pt Level 4 (20995) Diagnoses Acute left flank pain R10.9 Other microscopic hematuria R31.29 Hematuria type: other microscopic Family history of renal stone Z84.1
--- OUTSIDE RECORDS SUMMARY | 2024-11-17 14:48 | XMS_ITS | Encounter Summary ---
Author Organization [facility] Address [address] [place] [id number] Phone Care Team Providers Care Scrub Technician Name Role Phone Pop Wing MD Primary Care Provider [phone] Deanne Lawrence NP Primary Care Provider [phone]- [phone] Encounter Details Date Type Department Care Team (Late st Contact Info) Description 12/14/2020 Procedure Pass OR Admitting Dept - Virtual Department [address] [place] [address] Social History Tobacco Use Types Packs/Day Years Used Date Smoking Tobacco: Every Day Cigarettes Smokeless Tobacco: Never Alcohol Use Standard Drinks/Week Comments Yes 1 (1 standard drink = 0.6 oz pur e alcohol) Comments No Sex and Gender Information Value Date Recorded Sex Assigned at Female 10/08/2020 10:21 PM EDT Legal Sex Female 9:25 PM EDT Gender Identity Female 10/08/2020 10:21 PM EDT Sexual Orientation Not on file documented as of this encounter Plan of Treatment Not on file documented as of this encounter Visit Diagnoses Not on filedocumented in this encounter Care Teams Scrub Technician Relationship Specialty Start Date End Date Pop Wing MD PCP - General Internal Medicine 10/09/20 01/31/22 Deanne Lawrence, TOSHA [address] [place] [address] PCP - General Family Medicine 02/01/22 documented as of this encounter Additional Source Comments The information contained in this document represents components of the legal health record. It is not the complete legal health record.[facility]
--- OUTSIDE RECORDS SUMMARY | 2024-11-17 14:48 | XMS_ITS | Clinical Summary ---
Author Organization [facility] Address [address] [facility] [place] [address] [place] [id number] Phone Care Team Providers Care Area Coordinator Name Role Phone Deanne Lawrence NP Primary Care Provider [phone]- [phone] Allergies Active Allergy Reactions Criticality Noted Date Comments Ciprofloxacin Hives High 10/08/2020 Penicillins Hives,Fever High 10/08/2020 Fever, severe Sulfa (Sulfonamide Antibiotics) Rash with Blisters High 10/08/2020 Medications escitalopram oxalate (LEXAPRO) 10 MG tablet Take 10 mg by mouth daily. Active zolpidem (AMBIEN) 10 mg tablet Take 10 mg by mouth nightly at bedtime as needed for sleep. Active methotrexate 2.5 MG Oral tablet Take 15 mg by mouth every 7 days. Active carisoprodol (SOMA) 350 MG tablet Take 350 mg by mouth 3 (three) times a day. Active Active Problems Problem Noted Date Diagnosed Date Lower abdominal pain 12/13/2020 Overview (12/13/2020): Differential dx - ovarian torsion (ovary often unstable after hyst, and good flow on u/s does not rule this out); cyst rupture There are no sxs to suggest GOI or bladder origin, and lack of RBC on urine makes stone very unlikely I discussed these possible dx at length and , as her pain is persisting. Agree with observation and pain mangement overnight If not better in am, recommend dx laparoscopy to assess for torsion - if present, I suggest removal of the ovary as this can recur melodie with unstable ovary after hyst; if she prefers, managing jeweler have the adnexum untwisted. The cysts are not cause of pain, and are very small, removal not necessary Surgery, risks discussed incl possibility of not finding torsion to explain pain I have discussed the use of ketorolac with pharmacist - given that MTX is orally dosed once a week, using lower dose ketorolac should not cause problems for her. 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 Not on david e 06/21/2022 Are you concerned about learning? Not on file 06/21/2022 No 06/21/2022 No 06/21/2022 Digital Access Answer Date Recorded No 07/22/2022 No 07/22/2022 Reliable internet access at home? Not on file 07/22/2022 Device with a working camera? Not on file Comments No Sex and Gender Information Value Date Recorded Sex Assigned at Female 10/08/2020 10:21 PM EDT Legal Sex Female 9:25 PM EDT Gender Identity Female 10/08/2020 10:21 PM EDT Sexual Orientation Not on file Last Filed Vital Signs Vital Sign Reading Time Taken Comments Blood Pressure 125/79 01/13/2021 1:36 PM EST Pulse 75 01/13/2021 1:36 PM EST Temperature 37.5 C (99.5 F) 01/13/2021 1:36 PM EST Respiratory Rate 18 01/13/2021 1:36 PM EST Oxygen Saturation 99% 01/13/2021 1:36 PM EST Inhaled Oxygen Concentration - - Weight 65.8 kg (145 lb) 01/13/2021 1:36 PM EST Height 167.6 cm (5' 6 ) 01/13/2021 1:36 PM EST Body Mass Index 23.4 01/13/2021 1:36 PM EST Plan of Treatment Health Maintenance Due Date Last Done Comments LIPID PANEL 1977 COVID-19 VACCINE (#1) 1982 DEPRESSION SCREENING 1989 SMOKING Hx and SMOKELESS TOB ACCO SCREENING 1990 HEPATITIS C SCREENING 10/08/1995 HIV ONE-TIME SCREENING (18-6 5 YEARS) 10/08/1995 MAMMOGRAM 2017 PNEUMOCOCCAL VACCINES (0-49 years) (2 of 2 - PCV) 07/02/2018 07/02/2017 COLOGUARD 2022 COLONOSCOPY 2022 COLORECTAL CANCER SCREENING 2022 FIT TEST 2022 FOBT 2022 SIGMOIDOSCOPY 2022 VIRTUAL COLONOSCOPY 2022 INFLUENZA VACCINE (#1) 2024 12/14/2020 Adult Td,Tdap Booster 07/03/2027 07/02/2017 HEPATITIS A VACCINES Aged Out No long er eligible based on patient's age to complete this topic HIB VACCINES Aged Out No longer eligi ble based on patient's age to complete this topic MENINGOCOCCAL VACCINES (ACWY) Aged Out No longer eligible based on patient's age to complete this topic MENINGOCOCCAL VACCINES (B) Aged Out N o longer eligible based on patient's age to complete this topic Medical Devices Not on file Insurance [facility] [address] [place] [address] [facility] Care Teams Area Coordinator Relationship Specialty Start Date End Date Deanne Lawrence NP [address] [place] [address] PCP - General Family Medicine 02/01/22 Additional Source Comments The information contained in this document represents components of the legal health record. It is not the complete legal health record.[facility]
== END 2024-11-17 12:27 | disposition home or self-care (01) ==
PROVIDERS: PCP Nurse Practitioner Family; Visit Provider Internal Medicine
DX: R10.9 Unspecified abdominal pain (principal); R31.29 Other microscopic hematuria; Z84.1 Family history of disorders of kidney and ureter; Z13.9 Encounter for screening, unspecified

== ENCOUNTER → 2024-11-17 11:50 | Outpatient (BNVA) | payer OTHER, SELFPAY | PROVIDERS: PCP Nurse Practitioner Family; Visit Provider Internal Medicine | DX: R10.9 Unspecified abdominal pain (principal); R31.29 Other microscopic hematuria; Z84.1 Family history of disorders of kidney and ureter | CPT/HCPCS: 81003 ==